=== PATIENT | male | born 1990 | race Caucasian/White ===

== ENCOUNTER 2016-05-25 01:57 | Emergency (ER) | payer OTHER ==
[~2016-05-25] VITALS: Ht 175.3 cm; Wt 116.1 kg
[2016-05-25 02:00] VITALS: Ht 175.3 cm; Wt 116.1 kg
[2016-05-25 02:15] VITALS: TEMP 36.9
[2016-05-25 02:30] LABS: BASO % 0.2 %; BASO ABS # 0.02 K/uL (0-0.2); COMPLETE YES; EOS % 2.1 %; IG% 0.2 %; LYMPH % 29.1 %; MEAN CORPUSCULAR HGB CONC 35.7 g/dl (32-36); MEAN PLATELET VOLUME 8.6 fL (7.4-10.4); MONO % 11.1 %; NEUT % 57.3 %; PLATELET COUNT 325 K/uL (130-400); RED BLOOD COUNT 5.83 M/uL (4.7-6.1); WHITE BLOOD COUNT 12.03 K/uL (4.8-10.8)
[2016-05-25 03:20] LABS: BUN/CREATININE RATIO 14.5 (10-20); CALCIUM 8.5 mg/dl (8.5-10.1); CREATININE 1.2 mg/dl (0.60-1.40); POTASSIUM 3.4 mmol/L (3.5-5.1)
[2016-05-25 03:31] LABS: ALB/GLOB RATIO 1.3 (0.9-2); THYROID STIMULATING HORMONE 2.81 uIu/ml (0.300-4.500)
--- NOTE | 2016-05-25 03:31 | EMERGENCY ROOM VISIT NOTE ---
History Report prepared by Katheryn: Mustapha Rodney Under the Supervision of: Dr. Owen Briseno M.D. First contact with patient: 02:07 Chief Complaint: MENTAL HEALTH EVALUATION Stated Complaint: 302 History of Present Illness The patient is a 26 year old male who presents to the Emergency Room with complaints of a mental health evaluation. Per the police, he was taking steroids and substances around 1800 this evening. He took his parents car and drove to try to see his brother. The brother then notified the parents. The patient booked a hotel room at a [employer], and refused to open the door for the police. Per the patient, he notes he was in his apartment and was taken out. Source of History: patient, police Onset: this evening Position: head Quality: other (mental health evaluation) Timing: other (episode) Review of Systems See HPI for pertinent positives & negatives. A total of 10 systems reviewed and were otherwise negative. Family History No pertinent family history stated. Social History Smoking Status: Never Smoker Current/Historical Medications No Active Prescriptions or Reported Meds Allergies Coded Allergies: Cashew (Unverified Allergy, Unknown, unknown, 05/25/16) Haloperidol (Verified Allergy, Unknown, tongue swelling, 05/25/16) Physical Exam Vital Signs Date Time Temp Pulse Resp B/P Pulse Ox O2 Delivery O2 Flow Rate FiO2 05/25/16 12:24 122 18 135/82 98 Room Air 05/25/16 10:22 93 18 119/74 99 Room Air 05/25/16 02:15 36.9 92 20 150/84 96 Room Air 05/25/16 02:00 158/81 Physical Exam GENERAL: Patient is a healthy-appearing well-nourished HEAD: Normocephalic atraumatic EYES: Ocular movements intact pupils equal and react to light OROPHARYNX mucous membranes are moist no exudates present no erythema or edema present NECK: Supple no nuchal rigidity CHEST: Good equal expansion LUNGS: Clear and equal to auscultation CARDIAC: Normal S1 and S2 ABDOMEN: Soft nontender no guarding BACK: No CVA tenderness EXTREMITIES: No pain upon palpation normal muscle strength in all groups no clubbing cyanosis or edema NEURO: Patient is following commands is answering questions appropriately. Alert and oriented x3 Cranial Nerves 2-12 grossly intact Medical Decision & Procedures Laboratory Results 05/25/16 02:17 Red Blood Count 5.83, Mean Corpuscular Volume 84.0, Mean Corpuscular Hemoglobin 30.0, Mean Corpuscular Hemoglobin Concent 35.7, Mean Platelet Volume 8.6, Neutrophils (%) (Auto) 57.3, Lymphocytes (%) (Auto) 29.1, Monocytes (%) (Auto) 11.1, Eosinophils (%) (Auto) 2.1, Basophils (%) (Auto) 0.2, Neutrophils # (Auto ) 6.89, Lymphocytes # (Auto) 3.50, Monocytes # (Auto) 1.34, Eosinophils # (Auto ) 0.25, Basophils # (Auto) 0.02 05/25/16 02:17 Test 05/25/16 00:00 05/25/16 02:17 Urine Color YELLOW Urine Appearance CLEAR (CLEAR) Urine pH 6.0 (4.5-7.5) Urine Specific [place] 1.021 (1.000-1.030) Urine Protein 1+ (NEG) Urine Glucose (UA) NEG (NEG) Urine Ketones NEG (NEG) Urine Occult Blood NEG (NEG) Urine Nitrite NEG (NEG) Urine Bilirubin NEG (NEG) Urine Urobilinogen NEG (NEG) Urine Leukocyte Esterase NEG (NEG) Urine WBC (Auto) 1-5 /hpf (0-5) Urine RBC (Auto) 5-10 /hpf (0-4) Urine Hyaline Casts (Auto) 1-5 /lpf (0-5) Urine Epithelial Cells (Auto) 10-20 /lpf (0-5) Urine Bacteria (Auto) NEG (NEG) Urine Opiates Screen NEG (NEG) Urine Methadone, Qualitative NEG (NEG) Urine Barbiturates NEG (NEG) Urine Phencyclidine (PCP) Level NEG (NEG) Ur Amphetamine/Methamphetamine NEG (NEG) MDMA (Ecstasy) Screen NEG (NEG) Urine Benzodiazepines Screen NEG (NEG) Urine Cocaine Metabolite NEG (NEG) Urine Marijuana (THC) NEG (NEG) White Blood Count 12.03 K/uL (4.8-10.8) Red Blood Count 5.83 M/uL (4.7-6.1) Hemoglobin 17.5 g/dL (14.0-18.0) Hematocrit 49.0 % (42-52) Mean Corpuscular Volume 84.0 fL (80-100) Mean Corpuscular Hemoglobin 30.0 pg (25-34) Mean Corpuscular Hemoglobin Concent 35.7 g/dl (32-36) Platelet Count 325 K/uL (130-400) Mean Platelet Volume 8.6 fL (7.4-10.4) Neutrophils (%) (Auto) 57.3 % Lymphocytes (%) (Auto) 29.1 % Monocytes (%) (Auto) 11.1 % Eosinophils (%) (Auto) 2.1 % Basophils (%) (Auto) 0.2 % Neutrophils # (Auto) 6.89 K/uL (1.4-6.5) Lymphocytes # (Auto) 3.50 K/uL (1.2-3.4) Monocytes # (Auto) 1.34 K/uL (0.11-0.59) Eosinophils # (Auto) 0.25 K/uL (0-0.5) Basophils # (Auto) 0.02 K/uL (0-0.2) RDW Standard Deviation 39.4 fL (36.4-46.3) RDW Coefficient of Variation 13.0 % (11.5-14.5) Immature Granulocyte % (Auto) 0.2 % Immature Granulocyte # (Auto) 0.03 K/uL (0.00-0.02) Anion Gap 14.0 mmol/L (3-11) Est Creatinine Clear Calc Drug Dose 118.3 ml/min Estimated GFR () 96.8 Estimated GFR (Non- 83.5 BUN/Creatinine Ratio 14.5 (10-20) Calcium Level 8.5 mg/dl (8.5-10.1) Total Bilirubin 0.6 mg/dl (0.2-1) Direct Bilirubin 0.1 mg/dl (0-0.2) Aspartate Amino Transf (AST/SGOT) 19 U/L (15-37) Alanine Aminotransferase (ALT/SGPT) 24 U/L (12-78) Alkaline Phosphatase 79 U/L (45-117) Total Protein 7.6 gm/dl (6.4-8.2) Albumin 4.3 gm/dl (3.4-5.0) Globulin 3.3 gm/dl (2.5-4.0) Albumin/Globulin Ratio 1.3 (0.9-2) Thyroid Stimulating Hormone (TSH) 2.810 uIu/ml (0.300-4.500) Ethyl Alcohol mg/dL < 3.0 mg/dl (0-3) Labs reviewed by ED physician. Medications Administered Medications (Trade) Dose Ordered Sig/Speedy Route Start Time Stop Time Status Last Admin Dose Admin Lorazepam (Ativan Inj) 2 mg NOW STAT IV 05/25/16 12:44 05/25/16 12:48 DC 05/25/16 12:44 2 MG Lorazepam (Ativan Inj) 2 mg NOW STAT IM 05/25/16 12:47 05/25/16 12:48 DC 05/25/16 12:47 2 MG Medical Decision Differential diagnosis: Etiologies such as mood disorder, infection, hypoglycemia, electrolyte abnormalities, cardiac sources, intracerebral event, toxicologic, neurologic, as well as others were entertained. This is a 26-year-old male who presents emergency department after driving from [place] to stay [place]. The patient and properly took his parents car. He is a schizophrenic and has not been taking his medications for months. The parents willingly fill out 302 paperwork on the patient. I do believe that the patient is medically clear and did discuss the case with can help. The patient was signed off to Dr. Jorge Sandoval at change of shift pending psychiatric workup. Impression Primary Impression: Mood disorder Scribe Attestation The scribe's documentation has been prepared under my direction and personally reviewed by me in its entirety. I confirm that the note above accurately reflects all work, treatment, procedures, and medical decision making performed by me. Departure Information Dispostion Still a Patient Prescriptions No Active Prescriptions or Reported Meds Referrals No Doctor, Assigned (PCP) Patient Instructions My [facility] [address]
[2016-05-25 03:33] LABS: URINE APPEARANCE CLEAR (CLEAR); URINE BILIRUBIN NEG (NEG); URINE COLOR YELLOW; URINE NITRITE NEG (NEG); URINE SPECIFIC GRAVITY 1.021 (1.000-1.030); UROBILINOGEN NEG (NEG)
[2016-05-25 03:36] LABS: MANUAL MICROSCOPIC REQUIRED? NO; REVIEW REQ? NO
[2016-05-25 03:56] LABS: BENZODIAZEPINE, URINE NEG (NEG); COCAINE,URINE NEG (NEG); PHENCYCLIDINE, URINE NEG (NEG)
[2016-05-25 12:24] VITALS: BP 135/82; PULSE 122; O2SAT 98
[2016-05-25] MEDS ORDERED: LORAZEPAM 2 MG/ML 1 ML VIAL ONE (12:44)
[2016-05-25] MEDS ORDERED: LORAZEPAM 2 MG/ML 1 ML VIAL IV STA (12:44)
[2016-05-25] MEDS ORDERED: LORAZEPAM 2 MG/ML 1 ML VIAL IM STA (12:47)
--- NOTE | 2016-05-25 14:34 | EMERGENCY ROOM VISIT NOTE ---
ED Visit Note First contact with patient: 10:56 26 yr old male initially evaluated and medically cleared by Dr Briseno. He was brought in by Police overnight on 302 warrant for acute worsening of his paranoid schizophrenia. Patient interviewed this morning and he is completely denying any need for inpatient though he is clearly not thinking normally currently. He can not explain his actions and says he wishes to go home. He is unable to competently make his decisions at this time. Given what parents have told me about him, along with fact he has stopped going to psychiatrist, stopped his meds, has multiple 302 admissions previously I feel he will need 302 admission again. Patient somewhat non-cooperative but non-violent throughout ED stay. [place] transfer by [place] patient attempted to flew. He was handcuffed and brought back to ED. Given IM Ativan with calming down. Placed in leather restraints given concern for flight risk. He is now refusing to talk nor interact in any way currently. He has no evidence of trauma to his body. He is actively trying to close his eyes to my exam and turned his head away from me. Parents make clear he does this periodically and will refuse to talk, move or eat for several days. This was a difficult situation as patient drove himself to [facility] from [facility] thus he was brought under 302 warrant to this facility. He is unwilling to sign 201 (not mentally capable of doing so). He would likely benefit from being closer to home, but given the fact that rules dictate we must send him to closest facility, [facility]. Furthermore, the fact he attempted to flee makes prolonged transport even more risky. I sent patient to [facility] in restraints after [facility] help made clear to me that [facility] is aware of this and expecting him in restraints.
== END 2016-05-25 13:38 ==
LOC: C.EDB 01:59 → C.EDA 13:38
DX: F20.0 Paranoid schizophrenia (principal); Z91.14 Patient's other noncompliance with medication regimen

== ENCOUNTER 2016-07-20 16:41 | Emergency (ER) | payer OTHER ==
[~2016-07-20] VITALS: Ht 172.7 cm; Wt 102.0 kg
[2016-07-20 17:03] VITALS: TEMP 36.9; Ht 172.7 cm; Wt 102.0 kg
[2016-07-20] MEDS ORDERED: ARIP30TA3 PO (17:26)
[2016-07-20] MEDS ORDERED: ACET-1311 PO (17:26)
[2016-07-20] MEDS ORDERED: ATV1HP PO (17:26)
[2016-07-20] MEDS ORDERED: [UNRECOGNIZED DRUG - CODE] IM (17:26)
[2016-07-20] MEDS ORDERED: [UNRECOGNIZED DRUG - CODE] PO (17:26)
[2016-07-20 17:30] LABS: ISTAT HEMOGLOBIN 16.3 g/dl (14.0-18.0); ISTAT IONIZED CALCIUM 1.16 mmol/l (1.12-1.32)
--- NOTE | 2016-07-20 17:59 | EMERGENCY ROOM VISIT NOTE ---
History Report prepared by Katheryn: Valerio Diego Under the Supervision of: Dr. Owen Mcbride D.O. First contact with patient: 16:45 Chief Complaint: ABNORMAL LABS Stated Complaint: HI POTASSIUM History of Present Illness The patient is a 26 year old male who presents to the Emergency Room from the [facility] with complaints of sudden high potassium beginning one day prior to arrival. He states his blood was drawn yesterday at the [facility], and he received a call today that his potassium was elevated. He states he was told to be evaluated for his high potassium. The patient does not have any other medical concerns at this time. Source of History: patient Onset: one day [employer]OB WORK[employer] Position: other (global) Quality: other (high potassium) Timing: other (sudden) Review of Systems See HPI for pertinent positives & negatives. A total of 10 systems reviewed and were otherwise negative. Past Medical & Surgical Medical Problems: (1) No pertinent past medical history Family History Patient reports no known family medical history. Social History Smoking Status: Never Smoker Marital Status: single Housing Status: other ([facility]) Occupation Status: unemployed Current/Historical Medications Scheduled Aripiprazole (Abilify), 30 MG PO DAILY Scheduled PRN Acetaminophen (Tylenol), 650 MG PO Q4 PRN for Pain Benztropine Mesylate (Benztropine Mesylate), 1 ML IM DAILY PRN for PRN Chlorpromazine HCl (Chlorpromazine HCl), 200 MG PO DAILY PRN for PRN Lorazepam (Lorazepam), 2 TABS PO Q4H PRN for Anxiety Allergies Coded Allergies: Cashew (Unverified Allergy, Unknown, unknown, 07/20/16) Haloperidol (Verified Allergy, Unknown, tongue swelling, 07/20/16) Physical Exam Vital Signs Date Time Temp Pulse Resp B/P Pulse Ox O2 Delivery O2 Flow Rate FiO2 07/20/16 17:03 36.9 115 18 127/88 97 Room Air Physical Exam CONSTITUTIONAL/VITAL SIGNS: Reviewed / noted above. GENERAL: Non-toxic in appearance. INTEGUMENTARY: Warm, dry, and [place]. HEAD: Normocephalic. EYES: without scleral icterus or trauma. ENT/OROPHARYNX: clear and moist. LYMPHADENOPATHY/NECK: Is supple without lymphadenopathy or meningismus. RESPIRATORY: Lungs clear and equal. CARDIOVASCULAR: Regular rate and rhythm. GI/ABDOMEN: Soft and nontender. No organomegaly or pulsatile mass. No rebound or guarding. Normal bowel sounds. EXTREMITIES: Warm and well perfused. BACK: No CVA tenderness. NEUROLOGICAL: Intact without focal deficits. PSYCHIATRIC: normal affect. MUSCULOSKELETAL: Normally developed with good muscle tone. Medical Decision & Procedures Laboratory Results Test 07/20/16 17:17 Bedside Hemoglobin 16.3 g/dl (14.0-18.0) Bedside Hematocrit 48 % (42-52) Bedside Sodium 141 mEq/L (135-144) Bedside Potassium 4.4 mEq/L (3.3-5.0) Bedside Chloride 105 mEq/L (101-112) Bedside Total CO2 24 mEq/l (24-31) Anion Gap 18.0 mmol/L (16-25) Bedside Blood Urea Nitrogen 16 mg/dl (7-18) Bedside Creatinine 1.0 mg/dl (0.6-1.3) Bedside Glucose (other) 95 mg/dl (70-99) Bedside Ionized Calcium (Ursula) 1.16 mmol/l (1.12-1.32) Laboratory results as stated above per my review. ED Course 1648: Previous medical records were reviewed. The patient was evaluated in room A5. A complete history and physical examination was performed. 1800: On reevaluation, the patient is doing well. I discussed the results and findings with the patient. He verbalized agreement of the treatment plan. The patient was discharged home. Medical Decision This is a 26-year-old male who presents to the ED with a chief complaint of elevated potassium. The patient had outpatient blood work yesterday that revealed a potassium of 8. He was sent here for evaluation of this. The patient's blood work was repeated today. His potassium as well as his other laboratory studies are normal. He is asymptomatic. He was discharged back to the [facility]. Impression Primary Impression: Electrolyte disturbance Scribe Attestation The scribe's documentation has been prepared under my direction and personally reviewed by me in its entirety. I confirm that the note above accurately reflects all work, treatment, procedures, and medical decision making performed by me. Departure Information Dispostion Home / Self-Care Referrals No Doctor, Assigned (PCP) Patient Instructions My [facility] Additional Instructions Your laboratory studies and potassium are normal.
[2016-07-20 18:46] VITALS: BP 112/76; PULSE 77; O2SAT 98
== END 2016-07-20 18:40 | disposition home or self-care (01) ==
LOC: EDBD 16:41 → C.EDA 16:42
DX: E87.8 Other disorders of electrolyte and fluid balance, not elsewhere classified (principal); Z79.899 Other long term (current) drug therapy

== ENCOUNTER 2016-08-01 17:10 | Inpatient (IN) | payer OTHER ==
[~2016-08-01] VITALS: Ht 172.7 cm; Wt 98.4 kg
[~2016-08-01 17:10] MED LIST: ACET-1311 PO; ARIP30TA3 PO; ATV1HP PO; [UNRECOGNIZED DRUG - CODE] IM; [UNRECOGNIZED DRUG - CODE] PO
[2016-08-01] MEDS ORDERED: SODIUM CHLORIDE 0.9% 1000ML 2,000 ML IV STA (17:38)
[2016-08-01 17:50] LABS: BASO % 0.1 %; BASO ABS # 0.01 K/uL (0-0.2); COMPLETE YES; EOS % 3.6 %; HEMATOCRIT 42.1 % (42-52); IG% 0.5 %; LYMPH % 12.4 %; LYMPH ABS # 1.22 K/uL (1.2-3.4); MEAN CELL VOLUME 80.7 fL (80-100); MEAN CORPUSCULAR HEMOGLOBIN 28.7 pg (25-34); MEAN CORPUSCULAR HGB CONC 35.6 g/dl (32-36); MEAN PLATELET VOLUME 9.1 fL (7.4-10.4); MONO % 12.1 %; NEUT % 71.3 %; PLATELET COUNT 186 K/uL (130-400); RED BLOOD COUNT 5.22 M/uL (4.7-6.1); WHITE BLOOD COUNT 9.82 K/uL (4.8-10.8)
[2016-08-01] MEDS ORDERED: CLZ100 PO (17:54)
[2016-08-01 17:57] LABS: INR 1.1 (0.9-1.1); PROTHROMBIN TIME (PATIENT) 12.3 SECONDS (9.0-12.0)
[2016-08-01 18:01] LABS: ISTAT CREATININE 0.9 mg/dl (0.6-1.3); ISTAT HEMOGLOBIN 15.6 g/dl (14.0-18.0); ISTAT IONIZED CALCIUM 0.99 mmol/l (1.12-1.32)
[2016-08-01] MEDS ORDERED: LORAZEPAM 2 MG/ML 1 ML VIAL IV STA (18:08)
[2016-08-01 18:09] LABS: CREATININE 1.1 mg/dl (0.60-1.40); MAGNESIUM 2.4 mg/dl (1.8-2.4); POTASSIUM 3.6 mmol/L (3.5-5.1)
--- NOTE | 2016-08-01 18:11 | DIAGNOSTIC IMAGING REPORT ---
CHEST ONE VIEW PORTABLE CLINICAL HISTORY: Fever. Tachycardia. COMPARISON STUDY: No previous studies for comparison. FINDINGS: The patient is rotated. There is no pneumothorax or pleural effusion. There is no lobar consolidation. There is mild enlargement of the cardiac silhouette. There may be pulmonary vascular congestion. IMPRESSION: 1. Mild enlargement of the cardiac silhouette with pulmonary vascular congestion. 2. No lobar consolidation. Electronically signed by: Ryan Tomlinson M.D. 08/01/2016 6:09 PM Dictated Date/Time: 08/01/2016 6:09 PM
[2016-08-01 18:30] LABS: CKMB/CK RATIO 1.1 (0-3.0)
[2016-08-01] MEDS ORDERED: METOPROLOL TARTRATE 25 MG TAB PO ONE (19:27)
[2016-08-01] MEDS ORDERED: METOPROLOL TARTRATE 50 MG TAB ONE (19:45)
[2016-08-01 19:50] LABS: THYROID STIMULATING HORMONE 2.06 uIu/ml (0.300-4.500)
--- NOTE | 2016-08-01 20:17 | ECHOCARDIOGRAM REPORT ---
*NOTICE TO RECEIVING [employer] This information is strictly Confidential and protected under [place] law. [place] law prohibits you from making any further disclosure of this information unless further disclosure is expressly permitted by the written consent of the person to whom it pertains or is authorized by law. A general authorization for the release of medical or other information is not sufficient for this purpose. Hospital accepts no responsibility if the information is made available to any other person, INCLUDING THE PATIENT. Interpretation Summary * Name: TOYA MATTHEWS Study Date: 08/01/2016 06:56 PM BP: 107/73 mmHg * Patient Location: [facility] HR: 153 * : 1990 (M/d/yyyy) Gender: Male Height: 68 in * Age: 26 yrs Ethnicity: CA Weight: 229 lb * Ordering Physician: Kendall Lomas * Referring Physician: Bee, [facility] * Performed By: Yue Wyatt RCS * * Reason For Study: CARDIOMYOPATY / TACHYCARDIA * BSA: 2.2 m2 * -- Conclusions -- * Study was performed on at the bedside in the ED. * Sinus tachycardia at 155 bpm was present at the time of the echocardiogram. * The left ventricle is normal in size. * There is normal left ventricular wall thickness. * There is severe global hypokinesis of the left ventricle. * The LV Ejection Fraction = 25-30%. * The right ventricle is normal size. * The right ventricular systolic function is moderately reduced. * There is mild mitral regurgitation. * A small circumferential pericardial effusion is present. * There are no echocardiographic indications of cardiac tamponade. Procedure Details * A complete two-dimensional transthoracic echocardiogram was performed (2D, M-mode, Doppler and color flow Doppler). Left Ventricle * The left ventricle is normal in size. * There is normal left ventricular wall thickness. * Left ventricular systolic function is severely reduced. * Ejection Fraction = 25-30%. * There is severe global hypokinesis of the left ventricle. Right Ventricle * The right ventricle is normal size. * The right ventricular systolic function is moderately reduced. Atria * The left atrial size is normal. * Right atrial size is normal. * There is no evidence of atrial septal defect, but resolution does not allow assessment for a patent foramen ovale. Mitral Valve * The mitral valve is normal. * There is no mitral valve stenosis. * There is mild mitral regurgitation. Tricuspid Valve * The tricuspid valve is normal. * There is no tricuspid stenosis. * Significant tricuspid regurgitation is absent. * Doppler findings do not suggest pulmonary hypertension. Aortic Valve * The aortic valve is trileaflet. * Aortic stenosis is absent. * There is no significant aortic regurgitation. Pulmonic Valve * The pulmonary valve is not well seen, but the Doppler examination is normal without significant regurgitation or stenosis. Great Vessels * The aortic root and proximal ascending aorta are normal sized. Pericardium/Pleural * A small circumferential pericardial effusion is present. * There are no echocardiographic indications of cardiac tamponade. Great Vessels * Normal inferior vena cava diameter and respiratory variation suggests normal central venous pressure. * Normal inferior vena cava size and collapsability with sniff indicates a normal right atrial pressure of 3 mmHg Left Ventricular Diastolic Function * The LV diastolic function is abnormal based on the abnormal systolic function. The diastolic function is not graded due to fusion of the mitral valve inflow pattern due to tachycardia. MMode 2D Measurements and Calculations IVSd 1.4 cm IVSs 1.7 cm LVIDd 5.3 cm LVIDs 4.8 cm LVPWd 1.2 cm LVPWs 1.3 cm IVS/LVPW 1.2 FS 8.6 % EDV(Teich) 135.6 ml ESV(Teich) 110.1 ml EF(Teich) 18.8 % EDV(cubed) 149.2 ml ESV(cubed) 114.0 ml EF(cubed) 23.6 % % IVS thick 21.6 % % LVPW thick 15.9 % LV mass(C)d 275.2 grams LV mass(C)dI 127.1 grams/m\S\2 LV mass(C)s 308.1 grams LV mass(C)sI 142.3 grams/m\S\2 SV(Teich) 25.5 ml SI(Teich) 11.8 ml/m\S\2 SV(cubed) 35.2 ml SI(cubed) 16.3 ml/m\S\2 Ao root diam 4.5 cm Ao root area 15.6 cm\S\2 ACS 1.8 cm LA dimension 3.7 cm LA/Ao 0.82 LVOT diam 2.4 cm LVOT area 4.4 cm\S\2 LVAd ap4 39.1 cm\S\2 LVLd ap4 8.5 cm EDV(MOD-sp4) 148.6 ml EDV(sp4-el) 153.1 ml LVAs ap4 32.0 cm\S\2 LVLs ap4 7.7 cm ESV(MOD-sp4) 109.8 ml ESV(sp4-el) 112.8 ml EF(MOD-sp4) 26.1 % EF(sp4-el) 26.3 % LVAd ap2 35.5 cm\S\2 LVLd ap2 8.1 cm EDV(MOD-sp2) 126.4 ml EDV(sp2-el) 132.3 ml LVAs ap2 27.9 cm\S\2 LVLs ap2 7.5 cm ESV(MOD-sp2) 86.7 ml ESV(sp2-el) 88.8 ml EF(MOD-sp2) 31.4 % EF(sp2-el) 32.9 % LVLd %diff -3.73 % EDV(MOD-bp) 145.4 ml LVLs %diff -5.81 % ESV(MOD-bp) 94.3 ml EF(MOD-bp) 35.1 % SV(MOD-sp4) 38.8 ml SI(MOD-sp4) 17.9 ml/m\S\2 SV(MOD-sp2) 39.7 ml SI(MOD-sp2) 18.3 ml/m\S\2 SV(MOD-bp) 51.1 ml SI(MOD-bp) 23.6 ml/m\S\2 SV(sp4-el) 40.3 ml SI(sp4-el) 18.6 ml/m\S\2 SV(sp2-el) 43.5 ml SI(sp2-el) 20.1 ml/m\S\2 Doppler Measurements and Calculations Ao V2 max 96.1 cm/sec Ao max PG 3.7 mmHg Ao max PG (full) 1.3 mmHg JUANITO(V,A) 3.5 cm\S\2 JUANITO(V,D) 3.5 cm\S\2 LV V1 max PG 2.4 mmHg LV V1 max 77.4 cm/sec MR max tae 388.0 cm/sec MR max PG 60.2 mmHg PA V2 max 81.2 cm/sec PA max PG 2.6 mmHg TR max tae 257.8 cm/sec
[2016-08-01] MEDS ORDERED: CALCIUM GLUCONATE 10% 1,000 MG in SODIUM CHLORIDE 0.9% 50ML 50 ML IV ONE (20:30)
[2016-08-01] MEDS ORDERED: ACETAMINOPHEN 325 MG TAB PO PRN (20:30)
--- NOTE | 2016-08-01 20:31 | Cardiology Consultation ---
Cardiology Consultation Date of Consultation: Aug 01, 2016 History of Present Illness Polo Magaña is a 26-year-old male seen in cardiology consultation per the request of and Dr Lee for the evaluation of tachycardia and cardiomyopathy. Overall little is known about the patient's past history. It appears that in May [address] had driven to [facility] from where he lives in the [facility] and subsequently admitted to the [facility] on a 302 warrant. Per available records the patient has been diagnosed with schizophrenia, although I'm not certain how long he has carried this diagnosis. When I asked the patient about this he states that he is admitted to the [facility] due to "psychosis". The patient has been treated with antipsychotic therapy has been followed due to possible cardiac side effects related to his medications. Apparently as an outpatient he was noted to be tachycardic and he was therefore referred to the emergency department. EKG performed on 08/01/2016 at 1729 hrs. revealed appears to be a sinus tachycardia 158 beats per and a left anterior fascicular block. No prior EKG tracings are available for comparison. The patient reported no distress. During my bedside interview with him in the emergency department room C4, he denies any chest discomfort or shortness of breath. He does note that he has a cough that he believes he has had for 2 weeks but he does not remember having any significant respiratory tract infection. He hasn't attended with him from the [facility] but no additional history is available at the present time. It does appear that his medications have recently been changed because he was in the emergency department on 07/20/16 due to concerns of hyperkalemia. The potassium level was noted to be elevated outpatient AND therefore he was referred for repeat blood work and it was found that his potassium was normal at that time. No EKG was performed during that emergency room assessment. Two heart rate episodes were entered into the vital signs record and they were 115 bpm 77 bpm. When he was seen on 07/10/16 in the emergency department his medications included Abilify, benztropine mesylate, chlorpromazine, and lorazepam. His medications today include Abilify and clozapine. Laboratory studies performed thus far include sodium of 131, potassium 3.7, calcium of 8 mg/dL, lactic acid level of 1.64 mmol per liter, a [id number] troponin of 3.09, and repeat troponin of 3.55 ng/mil with CPK of 457 and MB fraction of 5. A bedside chest thoracic echocardiogram was performed revealing severe global left ventricular hypokinesis with a qualitative ejection fraction of 25-30%. The left ventricular chamber size is normal. Right ventricular chamber size is normal with moderate global hypokinesis. History PAST MEDICAL HISTORY: Schizophrenia PAST SURGICAL HISTORY: Unobtainable due to the patient's mental status FAMILY HISTORY: Unobtainable SOCIAL HISTORY: Unobtainable exception of that above Review Of Systems Negative with the exception of that noted above, the patient only describes a cough. His history however is not reliable. He is not able to provide details of why he is here. Allergies Coded Allergies: Cashew (Unverified Allergy, Unknown, unknown, 07/20/16) Haloperidol (Verified Allergy, Unknown, tongue swelling, 07/20/16) Medications Reported Home Medications Medications Dose Route/Sig Max Daily Dose Days Date Category Clozapine 100 Mg Tab 275 Mg PO QPM 08/01/16 Reported Abilify (Aripiprazole) 30 Mg Tab 30 Mg PO DAILY 07/20/16 Reported Physical Exam Vital Signs (Last 8hrs): Last 8 Hrs Date Time Temp Pulse Resp B/P Pulse Ox O2 Delivery O2 Flow Rate FiO2 08/01/16 19:52 161 28 99/58 97 Room Air 08/01/16 18:17 153 18 107/73 08/01/16 17:29 97 Room Air 08/01/16 17:29 97 Room Air 08/01/16 17:29 37.0 160 20 164/131 97 Room Air 08/01/16 17:24 256 General Appearance: Alert NAD. Head: Normocephalic Atraumatic. Eyes: PERRLA, EOMI, conjunctiva and sclera clear Neck: Supple. No carotid bruits noted. No JVD. No HJD. Respiratory: Breath sounds clear to auscultation bilaterally. No w/r/r. Cardiovascular: Reg rate, tachycardic, no murmurs Abdomen: Normal bowel sounds, soft nontender. no abdominal bruits. Extremities: No edema, no clubbing or cyanosis. distal pulses 2/4 bilaterally. Neuro: No focal deficits. Psychiatric: Demonstrates somewhat flight of ideas, poor historian consistent with his history of recent admission for psychosis Data Last Resulted 08/01/16 17:38 Red Blood Count 5.22, Mean Corpuscular Volume 80.7, Mean Corpuscular Hemoglobin 28.7, Mean Corpuscular Hemoglobin Concent 35.6, Mean Platelet Volume 9.1, Neutrophils (%) (Auto) 71.3, Lymphocytes (%) (Auto) 12.4, Monocytes (%) (Auto) 12.1, Eosinophils (%) (Auto) 3.6, Basophils (%) (Auto) 0.1, Neutrophils # (Auto ) 7.00, Lymphocytes # (Auto) 1.22, Monocytes # (Auto) 1.19, Eosinophils # (Auto ) 0.35, Basophils # (Auto) 0.01 Last Resulted 08/01/16 17:38 Past 24 Hours Test 08/01/16 17:38 Range/Units Creatine Kinase MB 5.0 H 0.5-3.6 ng/ml Creatine Kinase MB Ratio 1.1 0-3.0 Prothromb Time International Ratio 1.1 0.9-1.1 Prothrombin Time 12.3 H 9.0-12.0 SECONDS Total Creatine Kinase 457 H 39-308 U/L Troponin I 3.550 *H 0-0.045 ng/ml Imaging: As per history of present illness EKG: As per history of present illness Telemetry reviewed: Sinus tachycardia Assessment & Plan Impression: 26-year-old male 1. Sinus tachycardia 2. Newly recognized cardiomyopathy, severe LV systolic dysfunction, small circumferential pericardial effusion. 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 Clozapine has noted side effects of myocarditis as well as pericarditis, but in the literature dilated cardiomyopathy has also been reported. The patient has received 2 L of IV fluid. He is not volume overloaded on exam he notes no symptoms despite his elevated troponin. The troponin elevation is likely due to myocardial strain in the setting of tachycardia and cardiomyopathy I do not think this represents an acute coronary syndrome. At present, I think he is relatively compensated from a volume standpoint and I requested that his IV fluids be discontinued. I'm going to place him on metoprolol tartrate 25 mg by mouth every 6 hours. History admitted to the hospitalist service, telemetry unit is appropriate for him. Will need psychiatry to see him as his Abilify and clozapine will need to be held for the time being. I left a voicemail message for his brother, Arnaud notifying him that the patient was in the hospital. I will try to contact him again.
[2016-08-01 20:55] VITALS: BP 92/57; PULSE 155; TEMP 36.8; O2SAT 94; Ht 172.7 cm; Wt 98.4 kg
[2016-08-01 21:00] VITALS: BP 92/57; PULSE 157; TEMP 36.8; O2SAT 92
[2016-08-01] MEDS ORDERED: LEVALBUTEROL/IPRATROPIUM NEB INH PRN (21:45)
[2016-08-01] MEDS ORDERED: LEVALBUTEROL/IPRATROPIUM NEB INH STA (21:45)
[2016-08-01 21:47] LABS: ISTAT ALLEN TEST Pass; ISTAT ARTERIAL BLOOD GAS HCO3 19 meq/L (19-24); ISTAT ARTERIAL BLOOD GAS PCO2 27 mmHg (35-46); ISTAT ARTERIAL BLOOD GAS PO2 52 mmHg (80-95); ISTAT ARTERIAL BLOOD GAS pH 7.44 (7.35-7.45); ISTAT CARBON DIOXIDE 19 mEq/l (24-31); ISTAT DELIVERY SYSTEM Room Air; ISTAT SITE R Radial
[2016-08-01] MEDS ORDERED: POTASSIUM CHLORIDE 10 MEQ TABCR PO STA (21:49)
[2016-08-01] MEDS ORDERED: LEVALBUTEROL 1.25MG/0.5ML NEB INH STA (21:51)
[2016-08-01] MEDS ORDERED: IPRATROPIUM BROMIDE NEB SOLN 0.02% 2.5 ML VIAL INH STA (21:51)
[2016-08-01 22:00] VITALS: BP 120/93; PULSE 159; O2SAT 93
[2016-08-01] MEDS ORDERED: LORAZEPAM 2 MG/ML 1 ML VIAL IV PRN (22:00)
[2016-08-01] MEDS ORDERED: LORAZEPAM 2 MG/ML 1 ML VIAL IV ONE (22:00)
[2016-08-01] MEDS ORDERED: IPRATROPIUM BROMIDE NEB SOLN 0.02% 2.5 ML VIAL INH PRN (22:00)
[2016-08-01] MEDS ORDERED: LEVALBUTEROL 1.25MG/0.5ML NEB INH PRN (22:00)
[2016-08-01 23:00] VITALS: BP 92/62; PULSE 148; O2SAT 96
--- NOTE | 2016-08-01 23:13 | History and Physical ---
History & Physical Date & Time of Service: Aug 01, 2016 at 22:57 Chief Complaint: Tachycardia [facility] History of Present Illness Source: patient, family, other ([facility], director of midwifery/staff midwife) 26 year old male with history of Paranoid Schizophrenia, currently residing at [facility], presenting with tachycardia. Patient was admitted to [facility] under 302 last May 2016 for Paranoid Schizophrenia. He is currently on Abilify and Clozapine. Patient was noted to be tachycardic in the 150s today and hence was sent to the ER for evaluation. I called the RN at [facility] and she states that since the early part of this month, patient's HR was in the 110-120's. She adds that around 1-2 weeks ago, they noticed that the patient was coughing but no fever/chills. At the ER, patient's HR was noted to be 150s, sinus tachycardia. Troponin elevated at 3.09. Echo done at the bedside showed an EF of 25-30%. On my exam, patient was sitting up in bed, comfortable, pleasant and cooperative. RN Yue at bedside. Patient denies having active chest pain, dyspnea, cough, palpitations, headache , dizziness, nausea, abdominal pain,changes with urination or bowel movement. He states that his mood is ok, although he feels "down" because he was supposed to go home tomorrow but that has to be delayed because of his heart condition. Patient reassured. Denies worsening depression. No other symptoms Past Medical/Surgical History Medical Problems: (1) Paranoid schizophrenia Status: Chronic Family History Patient reports no known family medical history. Social History Alcohol Use: none Drug Use: none, other (history of using metabolic steroids) Marital Status: single Housing status: other ([facility]) Occupational Status: unemployed Allergies Coded Allergies: Cashew (Unverified Allergy, Unknown, unknown, 07/20/16) Haloperidol (Verified Allergy, Unknown, tongue swelling, 07/20/16) Home Medications Scheduled Aripiprazole (Abilify), 1 TAB PO DAILY Clozapine (Clozapine), 275 MG PO QPM Metoprolol Tartrate (Lopressor), 25 MG PO QID Review of Systems Constitutional- patient's mother reports she was told by RN at the [facility] that patient had temp of 100.1; no weight loss Eyes- no acute visual changes ENT- no sinus drainage; no pharyngitis Pulmonary- (+) cough as noted above Cardiac- no chest pain, no palpitations, no orthopnea, no dependent edema GI- no nausea, no vomiting, no diarrhea, no melena, no hematochezia - no dysuria, no hematuria Musculoskeletal- no arthralgias, no myalgias Derm- no rashes, no new skin lesions, no changing skin lesions Hematologic- no unusual bruising, no unusual bleeding Lymphatics- no adenopathy Endocrine- no polyuria or polydipsia; no heat or cold intolerance Neuro- no headaches, no focal neurologic symptoms Psych- (+) as noted above Physical Exam Vital Signs Date Time Temp Pulse Resp B/P Pulse Ox O2 Delivery O2 Flow Rate FiO2 08/01/16 20:55 36.8 155 28 92/57 94 Room Air 08/01/16 20:40 37.0 156 28 96/53 95 08/01/16 19:52 161 28 99/58 97 Room Air 08/01/16 18:17 153 18 107/73 08/01/16 17:29 97 Room Air 08/01/16 17:29 97 Room Air 08/01/16 17:29 37.0 160 20 164/131 97 Room Air 08/01/16 17:24 256 General Appearance: WD/WN, no apparent distress Head: normocephalic, atraumatic Eyes: normal inspection, PERRL, sclerae normal ENT: normal ENT inspection, hearing grossly normal, pharynx normal Neck: supple, no adenopathy, thyroid normal, no JVD, trachea midline Respiratory/Chest: chest non-tender, lungs clear, normal breath sounds, no respiratory distress, no accessory muscle use Cardiovascular: no edema, no JVD, no murmur, + tachycardia Abdomen/GI: normal bowel sounds, non tender, soft Back: normal inspection, no CVA tenderness Extremities/Musculoskelatal: normal inspection, no calf tenderness, no pedal edema Neurologic/Psych: resident surgeon II-XII nml as tested, no motor/sensory deficits, alert, normal reflexes, oriented x 3, + pertinent finding (calm, cooperative, slightly anxious) Skin: normal color, warm/dry, no rash Lymphatic: no adenopathy Diagnostics Laboratory Results Results Past 24 Hours Test 08/01/16 17:27 08/01/16 17:38 08/01/16 17:46 08/01/16 17:47 Range/Units White Blood Count 9.82 4.8-10.8 K/uL Red Blood Count 5.22 4.7-6.1 M/uL Hemoglobin 15.0 14.0-18.0 g/dL Hematocrit 42.1 42-52 % Mean Corpuscular Volume 80.7 80-100 fL Mean Corpuscular Hemoglobin 28.7 25-34 pg Mean Corpuscular Hemoglobin Concent 35.6 32-36 g/dl Platelet Count 186 130-400 K/uL Mean Platelet Volume 9.1 7.4-10.4 fL Neutrophils (%) (Auto) 71.3 % Lymphocytes (%) (Auto) 12.4 % Monocytes (%) (Auto) 12.1 % Eosinophils (%) (Auto) 3.6 % Basophils (%) (Auto) 0.1 % Neutrophils # (Auto) 7.00 1.4-6.5 K/uL Lymphocytes # (Auto) 1.22 1.2-3.4 K/uL Monocytes # (Auto) 1.19 0.11-0.59 K/uL Eosinophils # (Auto) 0.35 0-0.5 K/uL Basophils # (Auto) 0.01 0-0.2 K/uL RDW Standard Deviation 39.9 36.4-46.3 fL RDW Coefficient of Variation 13.5 11.5-14.5 % Immature Granulocyte % (Auto) 0.5 % Immature Granulocyte # (Auto) 0.05 0.00-0.02 K/uL Prothrombin Time 12.3 9.0-12.0 SECONDS Prothromb Time International Ratio 1.1 0.9-1.1 Sodium Level 130 136-145 mmol/L Potassium Level 3.6 3.5-5.1 mmol/L Chloride Level 97 98-107 mmol/L Carbon Dioxide Level 23 21-32 mmol/L Anion Gap 10.0 21.0 16-25 mmol/L Blood Urea Nitrogen 18 7-18 mg/dl Creatinine 1.10 0.60-1.40 mg/dl Est Creatinine Clear Calc Drug Dose 120.2 ml/min Estimated GFR () 107.6 Estimated GFR (Non- 92.8 BUN/Creatinine Ratio 16.0 10-20 Random Glucose 117 70-99 mg/dl Osmolality 270 280-300 mOsm/kg Calcium Level 8.0 8.5-10.1 mg/dl Magnesium Level 2.4 1.8-2.4 mg/dl Total Bilirubin 0.5 0.2-1 mg/dl Direct Bilirubin 0.1 0-0.2 mg/dl Aspartate Amino Transf (AST/SGOT) 34 15-37 U/L Alanine Aminotransferase (ALT/SGPT) 25 12-78 U/L Alkaline Phosphatase 57 45-117 U/L Total Creatine Kinase 457 39-308 U/L Creatine Kinase MB 5.0 0.5-3.6 ng/ml Creatine Kinase MB Ratio 1.1 0-3.0 Troponin I 3.550 0-0.045 ng/ml Total Protein 7.0 6.4-8.2 gm/dl Albumin 3.2 3.4-5.0 gm/dl Procalcitonin 0.48 0-0.5 ng/mL Thyroid Stimulating Hormone (TSH) 2.060 0.300-4.500 uIu/ml Free Thyroxine 1.30 0.80-1.60 ng/dl Bedside Lactic Acid Venous 1.64 0.90-1.70 mmol/L Bedside Troponin I 3.090 0-0.045 ng/ml Bedside Hemoglobin 15.6 14.0-18.0 g/dl Bedside Hematocrit 46 42-52 % Bedside Sodium 131 135-144 mEq/L Bedside Potassium 3.7 3.3-5.0 mEq/L Bedside Chloride 95 101-112 mEq/L Bedside Total CO2 20 24-31 mEq/l Bedside Blood Urea Nitrogen 17 7-18 mg/dl Bedside Creatinine 0.9 0.6-1.3 mg/dl Bedside Glucose (other) 118 70-99 mg/dl Bedside Ionized Calcium (Ursula) 0.99 1.12-1.32 mmol/l Test 08/01/16 21:00 08/01/16 21:22 08/01/16 21:23 08/01/16 21:34 Range/Units Influenza Type A Antigen Neg for Influ A NEG Influenza Type B Antigen Neg for Influ B NEG Lactic Acid Level 1.6 0.4-2.0 mmol/L Bedside Glucose 119 70-99 mg/dl Blood Gas Sample Site R Radial Bedside Blood Gas pH (LAB) 7.44 7.35-7.45 Bedside Blood Gas pCO2 (LAB) 27 35-46 mmHg Bedside Blood Gas pO2 (LAB) 52 80-95 mmHg Bedside Blood Gas HCO3 (LAB) 19 19-24 meq/L Bedside Blood Gas Total CO2 19 24-31 mEq/l Bedside Blood Gas Base Excess (LAB) -6.0 -9-1.8 meq/L Bedside Blood Gas O2 Saturation 89.0 90-95 % Zane Test Pass Oxygen Delivery Device Room Air Microbiology Results 08/01/16 Blood Culture, Received Pending 08/01/16 Blood Culture, Received Pending 08/01/16 MRSA DNA Surveillance Screen, Received Pending Diagnostic Radiology CXR: CHEST ONE VIEW PORTABLE per radiology report CLINICAL HISTORY: Fever. Tachycardia. COMPARISON STUDY: No previous studies for comparison. FINDINGS: The patient is rotated. There is no pneumothorax or pleural effusion. There is no lobar consolidation. There is mild enlargement of the cardiac silhouette. There may be pulmonary vascular congestion. IMPRESSION: 1. Mild enlargement of the cardiac silhouette with pulmonary vascular congestion. 2. No lobar consolidation. EKG sinus tachycardia, HR 158 Impression Assessment and Plan 26 year old male with history of Paranoid Schizophrenia, currently residing at [facility], presenting with tachycardia. CARDIOMYOPATHY - 2d echo per Cardiology: * Sinus tachycardia at 155 bpm was present at the time of the echocardiogram. * The left ventricle is normal in size. * There is normal left ventricular wall thickness. * There is severe global hypokinesis of the left ventricle. * The LV Ejection Fraction = 25-30%. * The right ventricle is normal size. * The right ventricular systolic function is moderately reduced. * There is mild mitral regurgitation. * A small circumferential pericardial effusion is present. * There are no echocardiographic indications of cardiac tamponade. --- unclear etiology possible adverse effect of Clozapine, Abilify discussed with Psych Liaison, may hold above medications for now Metoprolol PO started --- no signs of overt volume overload on exam -- appreciate Cardiology recommendations SINUS TACHYCARDIA ELEVATED TROPONIN --- likely from Cardiomyopathy, Psych Medications management as noted above --- CT chest ordered to r/o PE monitor creatinine HYPONATREMIA --- seems euvolemic at this time check Plasma Osm, Urine Na PRP q4h MILD HYPOCALCEMIA --- Ca gluconate x 1 ordered -- check Ca in AM check PTH, Vit D EPISODE OF MILD FEVER -- per patient's mother, RN at [facility] relayed to her that patient had a temp of 100.1 today no fever at this time, no leukocytosis CXR no signs of pneumonia -- no clear signs of infection at this time blood cultures and UA pending monitor PARANOID SCHIZOPHRENIA discussed with Psych Liaison, may hold Clozapine, Abilify for now Psych consulted DVT prophylaxis may need Lovenox if with prolonged hospital stay Full Code as per patient Disposition anticipate discharge to the [facility] when medically stable above note prepared 08/01/16 addendum 08/03/16 called [facility] to verify patient's information and patient's background with RN patient's additional medical records requested, RN informed me about a consent patient signed allowing information to be relayed to parents, to be faxed as well; discussed with patient and he also confirmed that he is allowing undersigned to update his parents about his condition called patient's parents, and discussed with them at length, in detail re: patient's medical condition and plan of care all questions were answered, they were comfortable and agreeable with plan of care Shivam Lee MD Advanced Directives Existing Living Will: No Existing Power of Children'S Lunchroom Supervisor: No VTE Prophylaxis VTE Risk Assessment Done? Y/N: Yes Risk Level: Moderate
--- NOTE | 2016-08-01 23:23 | EMERGENCY ROOM VISIT NOTE ---
History Report prepared by Dbibmaria fernanda: Vinny Copeland Under the Supervision of: Dr. Jaspreet Ovalle D.O. First contact with patient: 17:14 Stated Complaint: TACH CARDIA/ EVAL. FR [facility] History of Present Illness The patient is a 26 year old male who was referred to the Emergency Room for acute abnormal blood work. The patient was referred to the ED from [place], where he stays on a [address]. The patient became tachycardic last night. He does not currently have any complaints. Patient denies headache, change in vision, fevers , chest pain, shortness of breath, nausea, vomiting, diarrhea, pain with urination, and melena. He has been eating and drinking okay. He does admit to a cough and URI symptoms 2 weeks ago but notes that these symptoms have resolved. He recently has started a new psychiatric medication. Source of History: patient, transfer records Onset: last night Position: other (blood work) Quality: other (abnormal) Timing: other (acute) Associated Symptoms: No SOB, No chest pain, No diarrhea, No fevers, No headache, No melena, No nausea, No urinary symptoms, No vomiting Review of Systems See HPI for pertinent positives & negatives. A total of 10 systems reviewed and were otherwise negative. Past Medical & Surgical Medical Problems: (1) No pertinent past medical history (2) Paranoid schizophrenia (3) Tachycardia Family History Patient reports no known family medical history. Social History Smoking Status: Never Smoker Marital Status: single Housing Status: other Occupation Status: unemployed Current/Historical Medications Scheduled Aripiprazole (Abilify), 30 MG PO DAILY Clozapine (Clozapine), 275 MG PO QPM Allergies Coded Allergies: Cashew (Unverified Allergy, Unknown, unknown, 07/20/16) Haloperidol (Verified Allergy, Unknown, tongue swelling, 07/20/16) Physical Exam Vital Signs Date Time Temp Pulse Resp B/P Pulse Ox O2 Delivery O2 Flow Rate FiO2 08/01/16 19:52 161 28 99/58 97 Room Air 08/01/16 18:17 153 18 107/73 08/01/16 17:29 97 Room Air 08/01/16 17:29 97 Room Air 08/01/16 17:29 37.0 160 20 164/131 97 Room Air 08/01/16 17:24 256 Physical Exam GENERAL: Sitting up in bed, disheveled, nontoxic. EYE EXAM: normal conjunctiva. OROPHARYNX: no exudate, no erythema, lips, buccal mucosa, and tongue normal and mucous membranes are moist NECK: supple, no nuchal rigidity, no adenopathy, non-tender LUNGS: Clear to auscultation. Normal chest wall mechanics HEART: Tachycardic, S1 normal and S2 normal ABDOMEN: abdomen soft, non-tender, normo-active bowel sounds, no masses, no rebound or guarding. BACK: Back is symmetrical on inspection and there is no deformity, no midline tenderness, no CVA tenderness. SKIN: no rashes and no bruising UPPER EXTREMITIES: upper extremities are grossly normal. LOWER EXTREMITIES: No pitting edema. NEURO EXAM: Alert, following commands, cranial nerves II-XII grossly intact, normal speech, no muscle rigidity, reflexes in lower extremities are 3/4, no clonus. Medical Decision & Procedures ER Provider Diagnostic Interpretation: Xray results per the radiologist and my interpretation. Other results have been interpreted by the radiologist and reviewed by me. CHEST ONE VIEW PORTABLE CLINICAL HISTORY: Fever. Tachycardia. COMPARISON STUDY: No previous studies for comparison. FINDINGS: The patient is rotated. There is no pneumothorax or pleural effusion. There is no lobar consolidation. There is mild enlargement of the cardiac silhouette. There may be pulmonary vascular congestion. IMPRESSION: 1. Mild enlargement of the cardiac silhouette with pulmonary vascular congestion. 2. No lobar consolidation. Electronically signed by: Ryan Tomlinson M.D. 08/01/2016 6:09 PM Dictated Date/Time: 08/01/2016 6:09 PM Laboratory Results 08/01/16 17:38 Red Blood Count 5.22, Mean Corpuscular Volume 80.7, Mean Corpuscular Hemoglobin 28.7, Mean Corpuscular Hemoglobin Concent 35.6, Mean Platelet Volume 9.1, Neutrophils (%) (Auto) 71.3, Lymphocytes (%) (Auto) 12.4, Monocytes (%) (Auto) 12.1, Eosinophils (%) (Auto) 3.6, Basophils (%) (Auto) 0.1, Neutrophils # (Auto ) 7.00, Lymphocytes # (Auto) 1.22, Monocytes # (Auto) 1.19, Eosinophils # (Auto ) 0.35, Basophils # (Auto) 0.01 Test 08/01/16 17:27 3/30/17 17:38 08/01/16 17:46 08/01/16 17:47 White Blood Count 9.82 K/uL (4.8-10.8) Red Blood Count 5.22 M/uL (4.7-6.1) Hemoglobin 15.0 g/dL (14.0-18.0) Hematocrit 42.1 % (42-52) Mean Corpuscular Volume 80.7 fL (80-100) Mean Corpuscular Hemoglobin 28.7 pg (25-34) Mean Corpuscular Hemoglobin Concent 35.6 g/dl (32-36) Platelet Count 186 K/uL (130-400) Mean Platelet Volume 9.1 fL (7.4-10.4) Neutrophils (%) (Auto) 71.3 % Lymphocytes (%) (Auto) 12.4 % Monocytes (%) (Auto) 12.1 % Eosinophils (%) (Auto) 3.6 % Basophils (%) (Auto) 0.1 % Neutrophils # (Auto) 7.00 K/uL (1.4-6.5) Lymphocytes # (Auto) 1.22 K/uL (1.2-3.4) Monocytes # (Auto) 1.19 K/uL (0.11-0.59) Eosinophils # (Auto) 0.35 K/uL (0-0.5) Basophils # (Auto) 0.01 K/uL (0-0.2) RDW Standard Deviation 39.9 fL (36.4-46.3) RDW Coefficient of Variation 13.5 % (11.5-14.5) Immature Granulocyte % (Auto) 0.5 % Immature Granulocyte # (Auto) 0.05 K/uL (0.00-0.02) Prothrombin Time 12.3 SECONDS (9.0-12.0) Prothromb Time International Ratio 1.1 (0.9-1.1) Est Creatinine Clear Calc Drug Dose 120.2 ml/min Osmolality 270 mOsm/kg (280-300) Magnesium Level 2.4 mg/dl (1.8-2.4) Total Bilirubin 0.5 mg/dl (0.2-1) Direct Bilirubin 0.1 mg/dl (0-0.2) Aspartate Amino Transf (AST/SGOT) 34 U/L (15-37) Alanine Aminotransferase (ALT/SGPT) 25 U/L (12-78) Alkaline Phosphatase 57 U/L (45-117) Total Creatine Kinase 457 U/L (39-308) Creatine Kinase MB 5.0 ng/ml (0.5-3.6) Creatine Kinase MB Ratio 1.1 (0-3.0) Troponin I 3.550 ng/ml (0-0.045) Pro-B-Type Natriuretic Peptide 03669 pg/ml (0-450) Total Protein 7.0 gm/dl (6.4-8.2) Albumin 3.2 gm/dl (3.4-5.0) Procalcitonin 0.48 ng/mL (0-0.5) Thyroid Stimulating Hormone (TSH) 2.060 uIu/ml (0.300-4.500) Free Thyroxine 1.30 ng/dl (0.80-1.60) Bedside Lactic Acid Venous 1.64 mmol/L (0.90-1.70) Bedside Troponin I 3.090 ng/ml (0-0.045) Bedside Hemoglobin 15.6 g/dl (14.0-18.0) Bedside Hematocrit 46 % (42-52) Bedside Sodium 131 mEq/L (135-144) Bedside Potassium 3.7 mEq/L (3.3-5.0) Bedside Chloride 95 mEq/L (101-112) Bedside Total CO2 20 mEq/l (24-31) Bedside Blood Urea Nitrogen 17 mg/dl (7-18) Bedside Creatinine 0.9 mg/dl (0.6-1.3) Bedside Glucose (other) 118 mg/dl (70-99) Bedside Ionized Calcium (Ursula) 0.99 mmol/l (1.12-1.32) Laboratory results per my review. Medications Administered Medications (Trade) Dose Ordered Sig/Speedy Route Start Time Stop Time Status Last Admin Dose Admin Sodium Chloride (Nss 1000ml) 2,000 ml @ 999 mls/hr Q2H1M STAT IV 08/01/16 17:38 08/01/16 19:38 DC 08/01/16 17:44 999 MLS/HR Metoprolol Tartrate (Lopressor Tab) 50 mg STK-MED ONCE .ROUTE 08/01/16 19:45 08/01/16 19:46 DC 08/01/16 19:40 25 MG ECG Indication: tachycardia Rate (beats per minute): 158 Rhythm: sinus tachycardia Findings: left axis deviation, other (late R-wave progression) ED Course ED COURSE: Vital signs were reviewed and showed tachycardia. The patients medical record was reviewed The above diagnostic studies were performed and reviewed. ED treatments and interventions as stated above. 1715: The patient was evaluated in room C4. A complete history and physical examination was performed. 1720 Bedside ultrasound of the heart was performed. Poor cardiac contractility and decreased EF noted. 1738: NSS 2000 ml @ 999 mls/hr. 1808: Ativan 1 mg IV. 1830: Patient evaluated at bedside by Dr. Connolly, Director Of Category Management. He did an US of the calves that showed no DVTs. Cardiology being paged. 1842: Spoke with Dr. Lomas, Manager [employer]vac. He is aware of the case. 1844: Discussed the case with Meghan Henley [facility] The patient will be evaluated. 1900: Upon reevaluation, the patient is stable.I discussed my findings with the patient and he understands and agrees with the treatment plan. Based on the patients age, coexisting illnesses, exam and lab findings the decision to treat as an inpatient was made. The patient remained stable while under my care. The patient will be evaluated for further management. Medical Decision Differential diagnoses includes but is not limited to acute coronary syndrome, myocardial infarction, pericarditis, pulmonary embolus, aortic dissection, pneumonia, pneumothorax, musculoskeletal, shingles, esophageal. Patient is a 26-year-old male who presents the ER from [place] for tachycardia. He is found to have a heart rate in the 160s with systolic pressures in the 90s. On my evaluation he is resting comfortably and has no complaints. My bedside ultrasound shows small pericardial effusion along with poor cardiac contractility. He was given 2 L normal saline with slight improvement of his heart rate to the 150s. Labs and IV were obtained. He was sent for concern for neuroleptic malignant syndrome. He had no altered mental status and no clonus or rigidity. There is also no fever. Labs show no significant leukocytosis or anemia. EKG did not suggest ischemia. BMP was unremarkable. Troponin was positive at 3.5. TSH is normal. Influenza was negative. Critical care attending was in the ER briefly discussed the case and he evaluated the patient at bedside formally. He performed ultrasound of the lower extremities which showed no DVTs and consequently CT PE was canceled. I consulted cardiology for stat bedside echo which was performed. They gave him a small dose of Lopressor and recommended watching him closely following the echo. His systolic pressures did improve into the 120s. Patient was monitored closely. Uncertain of the etiology of this cardiomyopathy which could be caused from a myocarditis from the recent infection versus the psychiatric medications that he was placed on recently. Consults Time Called: 1819 Consulting Physician: Dr. Connolly, Director Of Category Management. Returned Call: 1829 1829: Patient evaluated at bedside by Dr. Connolly, Director Of Category Management. Cardiology being paged. Additional Consults: Time Called: 1829 Consulted Physician: Dr. Lomas, Manager [employer] Returned Call: 1841 Additional Comments: 1841: Spoke with Dr. Lomas, Manager [employer]. He is aware of the case. Time Called: 1839 Consulted Physician: Meghan Henley PA-C, [facility] Returned Call: 1843 Additional Comments: 1843: Discussed the case with Meghan Henley PA-C, [facility]. The patient will be evaluated. Impression Primary Impression: Cardiomyopathy Additional Impressions: Elevated troponin Myocarditis Tachycardia Scribe Attestation The scribe's documentation has been prepared under my direction and personally reviewed by me in its entirety. I confirm that the note above accurately reflects all work, treatment, procedures, and medical decision making performed by me. Departure Information Dispostion Being Evaluated By Hospitalist Referrals No Doctor, Assigned (PCP) Problem Qualifiers Primary Impression: Cardiomyopathy Cardiomyopathy type: unspecified Qualified Codes: I42.9 - Cardiomyopathy, unspecified Additional Impressions: Myocarditis Myocarditis type: unspecified Chronicity: unspecified Qualified Codes: I51.4 - Myocarditis, unspecified
[2016-08-01 23:45] LABS: INFLUENZA A PCR Neg for Influ A (NEG); INFLUENZA B PCR Neg for Influ B (NEG)
[2016-08-01] MEDS ORDERED: ALBUMIN HUMAN 25% 12.5 GM/50 ML VIAL IV ONE (23:45)
[2016-08-02] VITALS (31 sets, daily range): BP systolic 71–120; BP diastolic 45–94; PULSE 125–169; TEMP 36.4–37.4; O2SAT 85–99
[2016-08-02] MEDS ORDERED: OPTIRAY 320 IV PRN (00:15)
[2016-08-02] MEDS ORDERED: INFLUENZA VIRUS QUAD VACCINE 0.5 ML SYR IM. ONE (00:15)
[2016-08-02] MEDS ORDERED: INFLUENZA ADMINISTRATION CHARGE ONE (00:15)
[2016-08-02 00:24] LABS: BUN/CREATININE RATIO 13.4 (10-20); CALCIUM 7.7 mg/dl (8.5-10.1); POTASSIUM 3.9 mmol/L (3.5-5.1)
[2016-08-02 00:53] LABS: PARTIAL THROMBOPLASTIN RATIO 1.4
[2016-08-02] MEDS ORDERED: METOPROLOL TARTRATE 1 MG/ML VIAL IV STA (01:14)
[2016-08-02] MEDS ORDERED: POTASSIUM CHLORIDE 10 MEQ TABCR PO STA (01:15)
[2016-08-02] MEDS ORDERED: METOPROLOL TARTRATE 1 MG/ML VIAL ONE (01:26)
[2016-08-02] MEDS ORDERED: ALBUMIN HUMAN 25% 12.5 GM/50 ML VIAL IV ONE ×2 (01:30→04:00)
[2016-08-02 03:42] LABS: BENZODIAZEPINE, URINE NEG (NEG); COCAINE,URINE NEG (NEG); PHENCYCLIDINE, URINE NEG (NEG); URINE APPEARANCE CLEAR (CLEAR); URINE BILIRUBIN NEG (NEG); URINE COLOR YELLOW; URINE EPITHELIAL CELL AUTO >30 /lpf (0-5); URINE NITRITE NEG (NEG); URINE SPECIFIC GRAVITY > 1.045 (1.000-1.030); UROBILINOGEN NEG (NEG); ZZUR CULT IF INDIC CLEAN CATCH YES
[2016-08-02 03:43] LABS: MANUAL MICROSCOPIC REQUIRED? NO; REVIEW REQ? YES
[2016-08-02] MEDS ORDERED: IPRATROPIUM BROMIDE NEB SOLN 0.02% 2.5 ML VIAL INH ONE (04:05)
[2016-08-02] MEDS ORDERED: LEVALBUTEROL 1.25MG/0.5ML NEB INH ONE (04:05)
--- NOTE | 2016-08-02 04:10 | Progress Note ---
Internal Med Progress Note Date of Service: Aug 02, 2016. Provider Documentation: Vital Signs: Date Time Temp Pulse Resp B/P Pulse Ox O2 Delivery O2 Flow Rate FiO2 08/02/16 06:04 149 40 93/54 08/02/16 05:04 151 29 91/45 08/02/16 05:04 151 29 91/45 08/02/16 05:02 148 24 86/47 92 08/02/16 05:02 148 24 86/47 92 08/02/16 04:59 145 41 101/64 92 08/02/16 04:59 101/64 08/02/16 04:44 95/49 08/02/16 04:37 155 25 95/49 94 08/02/16 04:33 102/69 08/02/16 04:31 152 36 102/69 93 08/02/16 04:27 157 26 95 Nasal Cannula 3.0 08/02/16 04:00 94 Nasal Cannula 3.0 08/02/16 04:00 36.6 158 25 110/60 95 Nasal Cannula 3.0 08/02/16 03:01 168 39 89/60 93 08/02/16 02:22 154 28 103/56 93 Nasal Cannula 3.0 08/02/16 02:15 167 28 98/62 87 Nasal Cannula 3.0 08/02/16 02:10 149 22 87/66 96 Nasal Cannula 3.0 08/02/16 02:05 154 21 95/61 96 Nasal Cannula 3.0 08/02/16 01:40 145 25 119/94 92 Nasal Cannula 3.0 08/02/16 01:39 152 34 91/54 89 Nasal Cannula 3.0 08/02/16 01:33 148 14 93/64 92 Nasal Cannula 3.0 08/02/16 01:27 150 33 71/59 94 Nasal Cannula 3.0 08/02/16 01:26 155 120/76 08/02/16 01:23 169 24 86/66 91 Nasal Cannula 3.0 08/02/16 01:00 146 33 120/76 08/02/16 00:01 94 Nasal Cannula 3.0 08/02/16 00:00 36.8 158 23 102/60 85 Nasal Cannula 3.0 08/01/16 23:00 148 24 92/62 96 Nasal Cannula 3.0 08/01/16 23:00 148 32 92/62 96 08/01/16 22:00 159 18 120/93 93 Nasal Cannula 3.0 08/01/16 21:00 36.8 157 22 92/57 92 Room Air 08/01/16 20:55 36.8 155 28 92/57 94 Room Air 08/01/16 20:40 37.0 156 28 96/53 95 08/01/16 19:52 161 28 99/58 97 Room Air 08/01/16 18:17 153 18 107/73 08/01/16 17:29 97 Room Air 08/01/16 17:29 97 Room Air 08/01/16 17:29 37.0 160 20 164/131 97 Room Air 08/01/16 17:24 256 Lab Results: Results Past 24 Hours Test 08/01/16 17:38 08/01/16 17:46 08/01/16 17:47 08/01/16 21:00 Range/Units White Blood Count 9.82 4.8-10.8 K/uL Red Blood Count 5.22 4.7-6.1 M/uL Hemoglobin 15.0 14.0-18.0 g/dL Hematocrit 42.1 42-52 % Mean Corpuscular Volume 80.7 80-100 fL Mean Corpuscular Hemoglobin 28.7 25-34 pg Mean Corpuscular Hemoglobin Concent 35.6 32-36 g/dl Platelet Count 186 130-400 K/uL Mean Platelet Volume 9.1 7.4-10.4 fL Neutrophils (%) (Auto) 71.3 % Lymphocytes (%) (Auto) 12.4 % Monocytes (%) (Auto) 12.1 % Eosinophils (%) (Auto) 3.6 % Basophils (%) (Auto) 0.1 % Neutrophils # (Auto) 7.00 1.4-6.5 K/uL Lymphocytes # (Auto) 1.22 1.2-3.4 K/uL Monocytes # (Auto) 1.19 0.11-0.59 K/uL Eosinophils # (Auto) 0.35 0-0.5 K/uL Basophils # (Auto) 0.01 0-0.2 K/uL RDW Standard Deviation 39.9 36.4-46.3 fL RDW Coefficient of Variation 13.5 11.5-14.5 % Immature Granulocyte % (Auto) 0.5 % Immature Granulocyte # (Auto) 0.05 0.00-0.02 K/uL Prothrombin Time 12.3 9.0-12.0 SECONDS Prothromb Time International Ratio 1.1 0.9-1.1 Activated Partial Thromboplast Time 37.2 21.0-31.0 SECONDS Partial Thromboplastin Ratio 1.4 Sodium Level 130 136-145 mmol/L Potassium Level 3.6 3.5-5.1 mmol/L Chloride Level 97 98-107 mmol/L Carbon Dioxide Level 23 21-32 mmol/L Anion Gap 10.0 21.0 16-25 mmol/L Blood Urea Nitrogen 18 7-18 mg/dl Creatinine 1.10 0.60-1.40 mg/dl Est Creatinine Clear Calc Drug Dose 120.2 ml/min Estimated GFR () 107.6 Estimated GFR (Non- 92.8 BUN/Creatinine Ratio 16.0 10-20 Random Glucose 117 70-99 mg/dl Osmolality 270 280-300 mOsm/kg Calcium Level 8.0 8.5-10.1 mg/dl Magnesium Level 2.4 1.8-2.4 mg/dl Total Bilirubin 0.5 0.2-1 mg/dl Direct Bilirubin 0.1 0-0.2 mg/dl Aspartate Amino Transf (AST/SGOT) 34 15-37 U/L Alanine Aminotransferase (ALT/SGPT) 25 12-78 U/L Alkaline Phosphatase 57 45-117 U/L Total Creatine Kinase 457 39-308 U/L Creatine Kinase MB 5.0 0.5-3.6 ng/ml Creatine Kinase MB Ratio 1.1 0-3.0 Troponin I 3.550 0-0.045 ng/ml Pro-B-Type Natriuretic Peptide 38952 0-450 pg/ml Total Protein 7.0 6.4-8.2 gm/dl Albumin 3.2 3.4-5.0 gm/dl Procalcitonin 0.48 0-0.5 ng/mL Thyroid Stimulating Hormone (TSH) 2.060 0.300-4.500 uIu/ml Free Thyroxine 1.30 0.80-1.60 ng/dl Bedside Lactic Acid Venous 1.64 0.90-1.70 mmol/L Bedside Troponin I 3.090 0-0.045 ng/ml Bedside Hemoglobin 15.6 14.0-18.0 g/dl Bedside Hematocrit 46 42-52 % Bedside Sodium 131 135-144 mEq/L Bedside Potassium 3.7 3.3-5.0 mEq/L Bedside Chloride 95 101-112 mEq/L Bedside Total CO2 20 24-31 mEq/l Bedside Blood Urea Nitrogen 17 7-18 mg/dl Bedside Creatinine 0.9 0.6-1.3 mg/dl Bedside Glucose (other) 118 70-99 mg/dl Bedside Ionized Calcium (Ursula) 0.99 1.12-1.32 mmol/l Influenza Type A (RT-PCR) Neg for Influ A NEG Influenza Type A Antigen Neg for Influ A NEG Influenza Type B Antigen Neg for Influ B NEG Influenza Type B (RT-PCR) Neg for Influ B NEG Test 08/01/16 21:22 08/01/16 21:23 08/01/16 21:34 08/01/16 23:36 Range/Units Lactic Acid Level 1.6 0.4-2.0 mmol/L Bedside Glucose 119 70-99 mg/dl Blood Gas Sample Site R Radial Bedside Blood Gas pH (LAB) 7.44 7.35-7.45 Bedside Blood Gas pCO2 (LAB) 27 35-46 mmHg Bedside Blood Gas pO2 (LAB) 52 80-95 mmHg Bedside Blood Gas HCO3 (LAB) 19 19-24 meq/L Bedside Blood Gas Total CO2 19 24-31 mEq/l Bedside Blood Gas Base Excess (LAB) -6.0 -9-1.8 meq/L Bedside Blood Gas O2 Saturation 89.0 90-95 % Zane Test Pass Oxygen Delivery Device Room Air Sodium Level 132 136-145 mmol/L Potassium Level 3.9 3.5-5.1 mmol/L Chloride Level 100 98-107 mmol/L Carbon Dioxide Level 22 21-32 mmol/L Anion Gap 10.0 3-11 mmol/L Blood Urea Nitrogen 13 7-18 mg/dl Creatinine 1.00 0.60-1.40 mg/dl Est Creatinine Clear Calc Drug Dose 131.7 ml/min Estimated GFR () 120.7 Estimated GFR (Non- 104.1 BUN/Creatinine Ratio 13.4 10-20 Random Glucose 120 70-99 mg/dl Calcium Level 7.7 8.5-10.1 mg/dl Albumin 2.8 3.4-5.0 gm/dl Test 08/01/16 23:58 08/02/16 03:15 08/02/16 04:10 Range/Units Lactic Acid Level 1.6 0.4-2.0 mmol/L Urine Color YELLOW Urine Appearance CLEAR CLEAR Urine pH 6.0 4.5-7.5 Urine Specific Combs > 1.045 1.000-1.030 Urine Protein 1+ NEG Urine Glucose (UA) NEG NEG Urine Ketones 3+ NEG Urine Occult Blood 2+ NEG Urine Nitrite NEG NEG Urine Bilirubin NEG NEG Urine Urobilinogen NEG NEG Urine Leukocyte Esterase NEG NEG Urine WBC (Auto) 5-10 0-5 /hpf Urine RBC (Auto) 5-10 0-4 /hpf Urine Hyaline Casts (Auto) 1-5 0-5 /lpf Urine Epithelial Cells (Auto) >30 0-5 /lpf Urine Bacteria (Auto) NEG NEG Urine Renal Epithelial Cells 0-5 /lpf Urine Yeast (Auto) NONE PRSENT Urine Random Sodium 14 mEq/L Urine Opiates Screen NEG NEG Urine Methadone, Qualitative NEG NEG Urine Barbiturates NEG NEG Urine Phencyclidine (PCP) Level NEG NEG Ur Amphetamine/Methamphetamine NEG NEG MDMA (Ecstasy) Screen NEG NEG Urine Benzodiazepines Screen NEG NEG Urine Cocaine Metabolite NEG NEG Urine Marijuana (THC) NEG NEG White Blood Count 11.08 4.8-10.8 K/uL Red Blood Count 4.77 4.7-6.1 M/uL Hemoglobin 13.7 14.0-18.0 g/dL Hematocrit 39.0 42-52 % Mean Corpuscular Volume 81.8 80-100 fL Mean Corpuscular Hemoglobin 28.7 25-34 pg Mean Corpuscular Hemoglobin Concent 35.1 32-36 g/dl Platelet Count 176 130-400 K/uL Mean Platelet Volume 9.0 7.4-10.4 fL Neutrophils (%) (Auto) 73.6 % Lymphocytes (%) (Auto) 13.8 % Monocytes (%) (Auto) 8.9 % Eosinophils (%) (Auto) 2.2 % Basophils (%) (Auto) 0.2 % Neutrophils # (Auto) 8.16 1.4-6.5 K/uL Lymphocytes # (Auto) 1.53 1.2-3.4 K/uL Monocytes # (Auto) 0.99 0.11-0.59 K/uL Eosinophils # (Auto) 0.24 0-0.5 K/uL Basophils # (Auto) 0.02 0-0.2 K/uL RDW Standard Deviation 41.1 36.4-46.3 fL RDW Coefficient of Variation 13.6 11.5-14.5 % Immature Granulocyte % (Auto) 1.3 % Immature Granulocyte # (Auto) 0.14 0.00-0.02 K/uL Sodium Level 131 136-145 mmol/L Potassium Level 3.9 3.5-5.1 mmol/L Chloride Level 98 98-107 mmol/L Carbon Dioxide Level 23 21-32 mmol/L Anion Gap 10.0 3-11 mmol/L Blood Urea Nitrogen 12 7-18 mg/dl Creatinine 1.10 0.60-1.40 mg/dl Est Creatinine Clear Calc Drug Dose 119.7 ml/min Estimated GFR () 107.6 Estimated GFR (Non- 92.8 BUN/Creatinine Ratio 10.6 10-20 Random Glucose 108 70-99 mg/dl Calcium Level 7.6 8.5-10.1 mg/dl Phosphorus Level 2.3 2.5-4.9 mg/dl Magnesium Level 2.3 1.8-2.4 mg/dl Microbiology Results 08/01/16 Blood Culture, Received Pending 08/01/16 Blood Culture, Received Pending 08/01/16 MRSA DNA Surveillance Screen - Final, Complete Specimen Negative for MRSA by DNA Probe 08/02/16 Urine Culture, Received Pending
[2016-08-02 04:24] LABS: MEAN CELL VOLUME 81.8 fL (80-100); MEAN CORPUSCULAR HEMOGLOBIN 28.7 pg (25-34); MEAN CORPUSCULAR HGB CONC 35.1 g/dl (32-36); PLATELET COUNT 176 K/uL (130-400); RED BLOOD COUNT 4.77 M/uL (4.7-6.1); WHITE BLOOD COUNT 11.08 K/uL (4.8-10.8)
[2016-08-02] MEDS ORDERED: METOPROLOL TARTRATE 25 MG TAB PO ONE (04:26)
[2016-08-02 04:48] LABS: BUN/CREATININE RATIO 10.6 (10-20); CALCIUM 7.6 mg/dl (8.5-10.1); CREATININE 1.1 mg/dl (0.60-1.40); MAGNESIUM 2.3 mg/dl (1.8-2.4); PHOSPHORUS 2.3 mg/dl (2.5-4.9); POTASSIUM 3.9 mmol/L (3.5-5.1)
[2016-08-02 05:05] LABS: BASO % 0.2 %; BASO ABS # 0.02 K/uL (0-0.2); COMPLETE YES; EOS % 2.2 %; IG% 1.3 %; LYMPH % 13.8 %; LYMPH ABS # 1.53 K/uL (1.2-3.4); MONO % 8.9 %; NEUT % 73.6 %
[2016-08-02] MEDS ORDERED: LEVALBUTEROL 1.25MG/0.5ML NEB INH PRN (06:00)
--- NOTE | 2016-08-02 07:29 | DIAGNOSTIC IMAGING REPORT ---
CHEST CTA for PULMONARY ARTERIES CT DOSE: 663.99 mGy.cm HISTORY: Chest pain dyspnea TECHNIQUE: Multiaxial CT images of the chest were performed following the intravenous administration of contrast to evaluate the pulmonary arteries. Maximal intensity projection images were also obtained. COMPARISON STUDY: None. FINDINGS: Thoracic aorta is normal in course and caliber. Study is compromised due to patient motion. The third order vessels are not well evaluated. Moderate cardia megaly. Minimal pericardial effusion. No evidence for main central pulmonary embolus. Findings suggesting mild congestive failure. Trace pleural effusion both lung bases. IMPRESSION: 1. Limited study due to severe patient respiratory and somatic motion. 2. No evidence for main or central pulmonary embolus. 3. Third order vessels are not diagnostically evaluated due to motion. 4. Findings of congestive failure. 5. Small pericardial effusion Electronically signed by: Harjinder May M.D. 08/02/2016 7:28 AM Dictated Date/Time: 08/02/2016 7:26 AM
[2016-08-02] MEDS: METOPROLOL TARTRATE 25 MG TAB PO SCH ×4 (09:00→21:19)
[2016-08-02] MEDS ORDERED: ENOXAPARIN 40 MG/0.4 ML SYR SQ ONE (11:50)
--- NOTE | 2016-08-02 11:50 | Cardiology Follow-Up ---
Subjective General Date of Service: Aug 02, 2016. Chief Complaint: follow up Pt evaluation today including: conversation w/ patient, physical exam, lab review, conversation w/ financial services consultant History of Present Illness The patient is a 26 year old male seen in follow up. Patient remains tachycardic, sinus tachycardia at 150 bpm. Blood pressure remains low with SBP in th 90's for the most part. Patient received 3 doses of IV albumin overnight. Also received two doses of IV metoprolol with transient hypotension , SBP of 70 mm Hg. Patient denies cardiac complaint other than occasional cough. Denies chest pain or shortness of breath. Attempted to explain his cardiac issues , but patient's cognition limits his understanding. Allergies Coded Allergies: Cashew (Unverified Allergy, Unknown, unknown, 07/20/16) Haloperidol (Verified Allergy, Unknown, tongue swelling, 07/20/16) Social History Smoking Status: Never Smoker Problem List Medical Problems: (1) Cardiomyopathy Status: Acute (2) Electrolyte disturbance Status: Acute (3) Elevated troponin Status: Acute (4) Myocarditis Status: Acute Physical Exam Vital Signs Last Vital Signs Documentation Date Time Temp Pulse Resp B/P Pulse Ox O2 Delivery O2 Flow Rate FiO2 08/02/16 06:04 149 40 93/54 08/02/16 05:02 92 08/02/16 04:27 Nasal Cannula 3.0 08/02/16 04:00 36.6 Physical Exam Constitutional: Level of Distress: NAD Neck: supple Lungs: Auscultation: no rales/crackles, no rhonchi Cardiovascular: Heart Auscultation: no murmurs, tachycardia Extremities: no edema Neurologic: Gait & Station: pertinent finding (moves all 4 extremities, follows commands. ) Assessment and Plan Assessment and Plan Impression: 26-year-old male 1. Newly recognized (non ischemic) cardiomyopathy, severe LV systolic dysfunction, small circumferential pericardial effusion. -Perhaps viral cardiomyopathy, persistent tachycardia induced, versus adverse medication side effect or even a combination of adverse medication side effect since his recent medications have the potential for causing tachycardia 2. Sinus tachycardia 3. Hypotension, but not in low output shock, perfusing well, cognitive impairment due to his underlying psychiatric disease 4. Low sodium, low albumin, likely due to chronic , however compensated , volume overload. 5. Cough, perhaps due to underlying CHF rather than lung disease 6. Schizophrenia Discussion/recommendations: In my initial consultation, I had recommended initiation of cautious oral metoprolol tartrate with hold for heart rate less than 60 and systolic blood pressure less than 100 mmHg. I had personally decided against giving him more aggressive IV medication such as IV metoprolol when I had seen him last evening. Would avoid administering IV albumin, albumin level is likely low due to relative increase circulatory volume, I do not think this will help his blood pressure or help to mobilize fluid and will likely contribute to progressive volume overload. Patient noted hypotension after IV metoprolol last evening, but I would anticipate that oral metoprolol would be tolerated from a blood pressure standpoint. I have lowered the hold parameters for heart rate less than 60 and systolic blood pressure less than 90 mmHg, however the patient has declined the medication this morning thus far. I would hold off on diuretics at this point as he is not dyspneic and his lungs are clear and diuresing him likely contributed to further low blood pressure. Would hold off on bronchodilators such as opening's as do not want to contribute anymore tachycardia, and a do not believe these medications will help him from a cost standpoint. His psychiatric medications with the exception of lorazepam have been on hold. Unfortunately his schizophrenia is a significant barrier to his cardiac treatment in terms of him being adherent to the treatment program. And of course his cardiac diagnosis normal limits medication options for his psychosis. Recommend adding Lovenox 40 subcutaneous daily for DVT prophylaxis if patient will accept this medication. I had a discussion with Dr. Buckley, with Hospital service that this patient would benefit from consideration toward transfer to a tertiary center that is closer to where his family lives synthetic be more involved in his care. Would recommend a center that has advanced heart failure service capability as well as inpatient psychiatry.. Laboratory Results Last 24 Hours Test 08/01/16 17:38 08/01/16 17:46 08/01/16 17:47 08/01/16 21:00 White Blood Count 9.82 K/uL Red Blood Count 5.22 M/uL Hemoglobin 15.0 g/dL Hematocrit 42.1 % Mean Corpuscular Volume 80.7 fL Mean Corpuscular Hemoglobin 28.7 pg Mean Corpuscular Hemoglobin Concent 35.6 g/dl Platelet Count 186 K/uL Mean Platelet Volume 9.1 fL Neutrophils (%) (Auto) 71.3 % Lymphocytes (%) (Auto) 12.4 % Monocytes (%) (Auto) 12.1 % Eosinophils (%) (Auto) 3.6 % Basophils (%) (Auto) 0.1 % Neutrophils # (Auto) 7.00 K/uL Lymphocytes # (Auto) 1.22 K/uL Monocytes # (Auto) 1.19 K/uL Eosinophils # (Auto) 0.35 K/uL Basophils # (Auto) 0.01 K/uL RDW Standard Deviation 39.9 fL RDW Coefficient of Variation 13.5 % Immature Granulocyte % (Auto) 0.5 % Immature Granulocyte # (Auto) 0.05 K/uL Prothrombin Time 12.3 SECONDS Prothromb Time International Ratio 1.1 Activated Partial Thromboplast Time 37.2 SECONDS Partial Thromboplastin Ratio 1.4 Sodium Level 130 mmol/L Potassium Level 3.6 mmol/L Chloride Level 97 mmol/L Carbon Dioxide Level 23 mmol/L Anion Gap 10.0 mmol/L 21.0 mmol/L Blood Urea Nitrogen 18 mg/dl Creatinine 1.10 mg/dl Est Creatinine Clear Calc Drug Dose 120.2 ml/min Estimated GFR () 107.6 Estimated GFR (Non- 92.8 BUN/Creatinine Ratio 16.0 Random Glucose 117 mg/dl Osmolality 270 mOsm/kg Calcium Level 8.0 mg/dl Magnesium Level 2.4 mg/dl Total Bilirubin 0.5 mg/dl Direct Bilirubin 0.1 mg/dl Aspartate Amino Transf (AST/SGOT) 34 U/L Alanine Aminotransferase (ALT/SGPT) 25 U/L Alkaline Phosphatase 57 U/L Total Creatine Kinase 457 U/L Creatine Kinase MB 5.0 ng/ml Creatine Kinase MB Ratio 1.1 Troponin I 3.550 ng/ml Pro-B-Type Natriuretic Peptide 69480 pg/ml Total Protein 7.0 gm/dl Albumin 3.2 gm/dl Procalcitonin 0.48 ng/mL Thyroid Stimulating Hormone (TSH) 2.060 uIu/ml Free Thyroxine 1.30 ng/dl Bedside Lactic Acid Venous 1.64 mmol/L Bedside Troponin I 3.090 ng/ml Bedside Hemoglobin 15.6 g/dl Bedside Hematocrit 46 % Bedside Sodium 131 mEq/L Bedside Potassium 3.7 mEq/L Bedside Chloride 95 mEq/L Bedside Total CO2 20 mEq/l Bedside Blood Urea Nitrogen 17 mg/dl Bedside Creatinine 0.9 mg/dl Bedside Glucose (other) 118 mg/dl Bedside Ionized Calcium (Ursula) 0.99 mmol/l Influenza Type A (RT-PCR) Neg for Influ A Influenza Type A Antigen Neg for Influ A Influenza Type B Antigen Neg for Influ B Influenza Type B (RT-PCR) Neg for Influ B Test 08/01/16 21:22 08/01/16 21:23 08/01/16 21:34 08/01/16 23:36 Lactic Acid Level 1.6 mmol/L Bedside Glucose 119 mg/dl Blood Gas Sample Site R Radial Bedside Blood Gas pH (LAB) 7.44 Bedside Blood Gas pCO2 (LAB) 27 mmHg Bedside Blood Gas pO2 (LAB) 52 mmHg Bedside Blood Gas HCO3 (LAB) 19 meq/L Bedside Blood Gas Total CO2 19 mEq/l Bedside Blood Gas Base Excess (LAB) -6.0 meq/L Bedside Blood Gas O2 Saturation 89.0 % Zane Test Pass Oxygen Delivery Device Room Air Sodium Level 132 mmol/L Potassium Level 3.9 mmol/L Chloride Level 100 mmol/L Carbon Dioxide Level 22 mmol/L Anion Gap 10.0 mmol/L Blood Urea Nitrogen 13 mg/dl Creatinine 1.00 mg/dl Est Creatinine Clear Calc Drug Dose 131.7 ml/min Estimated GFR () 120.7 Estimated GFR (Non- 104.1 BUN/Creatinine Ratio 13.4 Random Glucose 120 mg/dl Calcium Level 7.7 mg/dl Albumin 2.8 gm/dl Test 08/01/16 23:58 08/02/16 03:15 08/02/16 04:10 Lactic Acid Level 1.6 mmol/L Urine Color YELLOW Urine Appearance CLEAR Urine pH 6.0 Urine Specific [place] > 1.045 Urine Protein 1+ Urine Glucose (UA) NEG Urine Ketones 3+ Urine Occult Blood 2+ Urine Nitrite NEG Urine Bilirubin NEG Urine Urobilinogen NEG Urine Leukocyte Esterase NEG Urine WBC (Auto) 5-10 /hpf Urine RBC (Auto) 5-10 /hpf Urine Hyaline Casts (Auto) 1-5 /lpf Urine Epithelial Cells (Auto) >30 /lpf Urine Bacteria (Auto) NEG Urine Renal Epithelial Cells /lpf Urine Yeast (Auto) Urine Random Sodium 14 mEq/L Urine Opiates Screen NEG Urine Methadone, Qualitative NEG Urine Barbiturates NEG Urine Phencyclidine (PCP) Level NEG Ur Amphetamine/Methamphetamine NEG MDMA (Ecstasy) Screen NEG Urine Benzodiazepines Screen NEG Urine Cocaine Metabolite NEG Urine Marijuana (THC) NEG White Blood Count 11.08 K/uL Red Blood Count 4.77 M/uL Hemoglobin 13.7 g/dL Hematocrit 39.0 % Mean Corpuscular Volume 81.8 fL Mean Corpuscular Hemoglobin 28.7 pg Mean Corpuscular Hemoglobin Concent 35.1 g/dl Platelet Count 176 K/uL Mean Platelet Volume 9.0 fL Neutrophils (%) (Auto) 73.6 % Lymphocytes (%) (Auto) 13.8 % Monocytes (%) (Auto) 8.9 % Eosinophils (%) (Auto) 2.2 % Basophils (%) (Auto) 0.2 % Neutrophils # (Auto) 8.16 K/uL Lymphocytes # (Auto) 1.53 K/uL Monocytes # (Auto) 0.99 K/uL Eosinophils # (Auto) 0.24 K/uL Basophils # (Auto) 0.02 K/uL RDW Standard Deviation 41.1 fL RDW Coefficient of Variation 13.6 % Immature Granulocyte % (Auto) 1.3 % Immature Granulocyte # (Auto) 0.14 K/uL Sodium Level 131 mmol/L Potassium Level 3.9 mmol/L Chloride Level 98 mmol/L Carbon Dioxide Level 23 mmol/L Anion Gap 10.0 mmol/L Blood Urea Nitrogen 12 mg/dl Creatinine 1.10 mg/dl Est Creatinine Clear Calc Drug Dose 119.7 ml/min Estimated GFR () 107.6 Estimated GFR (Non- 92.8 BUN/Creatinine Ratio 10.6 Random Glucose 108 mg/dl Calcium Level 7.6 mg/dl Phosphorus Level 2.3 mg/dl Magnesium Level 2.3 mg/dl
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
--- NOTE | 2016-08-02 16:16 | Psychiatric Progress Notes ---
Psychiatric Progress Note Date of Service Aug 02, 2016. Notes it was confirmed that Polo was officially discharged from the [facility] and his 304 commitment is no longer active. Given history of agitation and possibility of elopement and unpredictable behavior (given holding Abilify 30 mg and clozaril), feel 1-on-1 should continue. If he would attempt to leave [place], a 302 commitment procedure should be initiated for him to continue necessary medical care as his psychiatric condition cannot be appropriately treated/ monitored outside of a hospital setting off of psychiatric medications. Monitor for withdrawal dyskinesias which can be seen in abrupt discontinuation of Abilify, luckily it does have a long half life.
--- NOTE | 2016-08-02 19:41 | Progress Note ---
Subjective Date of Service: Aug 02, 2016. Subjective Pt evaluation today including: conversation w/ patient, physical exam, chart review, lab review, review of studies, conversation w/ regional engagement consultant, review of inpatient medication list Saw/examined the patient in room 110 He states he feels fine besides a cough No problems/issues to note Problem List Medical Problems: (1) Cardiomyopathy Status: Acute (2) Electrolyte disturbance Status: Acute (3) Elevated troponin Status: Acute (4) Myocarditis Status: Acute Review of Systems Constitutional: No chills, No fever Respiratory: + cough, No shortness of breath, No sputum Cardiac: No chest pain, No edema, No palpitations Psychiatric: + anxiety, No anhedonism, No depression symptoms, No insomnia Medications Current Inpatient Medications Medications (Trade) Dose Ordered Sig/Speedy Route Start Time Stop Time Status Last Admin Dose Admin Metoprolol Tartrate (Lopressor Tab) 25 mg QID PO 08/02/16 09:00 09/01/16 08:59 08/02/16 11:45 25 MG Acetaminophen (Tylenol Tab) 650 mg Q4H PRN PO 08/01/16 20:30 08/31/16 20:29 Lorazepam (Ativan Inj) 0.5 mg Q4H PRN IV 08/01/16 22:00 08/31/16 21:59 Ioversol (Optiray 320) 100 ml UD PRN IV 08/02/16 00:15 08/06/16 00:14 Enoxaparin Sodium (Lovenox Inj) 40 mg QAM SQ 08/03/16 09:00 09/02/16 08:59 Objective Vital Signs Date Time Temp Pulse Resp B/P Pulse Ox O2 Delivery O2 Flow Rate FiO2 08/02/16 16:33 95 Room Air 08/02/16 15:30 36.5 135 20 98/67 93 Nasal Cannula 3.0 08/02/16 12:00 95 Room Air 08/02/16 12:00 139 40 100/75 99 Room Air 08/02/16 08:00 99 Room Air 08/02/16 08:00 36.7 142 28 84/66 99 Room Air 08/02/16 06:04 149 40 93/54 08/02/16 05:04 151 29 91/45 08/02/16 05:04 151 29 91/45 08/02/16 05:02 148 24 86/47 92 08/02/16 05:02 148 24 86/47 92 08/02/16 04:59 145 41 101/64 92 08/02/16 04:59 101/64 08/02/16 04:44 95/49 08/02/16 04:37 155 25 95/49 94 08/02/16 04:33 102/69 08/02/16 04:31 152 36 102/69 93 08/02/16 04:27 157 26 95 Nasal Cannula 3.0 08/02/16 04:00 94 Nasal Cannula 3.0 08/02/16 04:00 36.6 158 25 110/60 95 Nasal Cannula 3.0 08/02/16 03:01 168 39 89/60 93 08/02/16 02:22 154 28 103/56 93 Nasal Cannula 3.0 08/02/16 02:15 167 28 98/62 87 Nasal Cannula 3.0 08/02/16 02:10 149 22 87/66 96 Nasal Cannula 3.0 08/02/16 02:05 154 21 95/61 96 Nasal Cannula 3.0 08/02/16 01:40 145 25 119/94 92 Nasal Cannula 3.0 08/02/16 01:39 152 34 91/54 89 Nasal Cannula 3.0 08/02/16 01:33 148 14 93/64 92 Nasal Cannula 3.0 08/02/16 01:27 150 33 71/59 94 Nasal Cannula 3.0 08/02/16 01:26 155 120/76 08/02/16 01:23 169 24 86/66 91 Nasal Cannula 3.0 08/02/16 01:00 146 33 120/76 08/02/16 00:01 94 Nasal Cannula 3.0 08/02/16 00:00 36.8 158 23 102/60 85 Nasal Cannula 3.0 08/01/16 23:00 148 24 92/62 96 Nasal Cannula 3.0 08/01/16 23:00 148 32 92/62 96 08/01/16 22:00 159 18 120/93 93 Nasal Cannula 3.0 08/01/16 21:00 36.8 157 22 92/57 92 Room Air 08/01/16 20:55 36.8 155 28 92/57 94 Room Air 08/01/16 20:40 37.0 156 28 96/53 95 08/01/16 19:52 161 28 99/58 97 Room Air Physical Exam General Appearance: no apparent distress Respiratory/Chest: lungs clear, normal breath sounds, no respiratory distress, no accessory muscle use Cardiovascular: no murmur, + tachycardia Extremities: normal inspection, no pedal edema Neurologic/Psychiatric: no motor/sensory deficits, alert, oriented x 3, + pertinent finding (demonstrates limited understanding of condition; ) Laboratory Results Last 24 Hours Test 08/01/16 21:00 08/01/16 21:22 08/01/16 21:23 08/01/16 21:34 Influenza Type A (RT-PCR) Neg for Influ A Influenza Type A Antigen Neg for Influ A Influenza Type B Antigen Neg for Influ B Influenza Type B (RT-PCR) Neg for Influ B Lactic Acid Level 1.6 mmol/L Bedside Glucose 119 mg/dl Blood Gas Sample Site R Radial Bedside Blood Gas pH (LAB) 7.44 Bedside Blood Gas pCO2 (LAB) 27 mmHg Bedside Blood Gas pO2 (LAB) 52 mmHg Bedside Blood Gas HCO3 (LAB) 19 meq/L Bedside Blood Gas Total CO2 19 mEq/l Bedside Blood Gas Base Excess (LAB) -6.0 meq/L Bedside Blood Gas O2 Saturation 89.0 % Zane Test Pass Oxygen Delivery Device Room Air Test 08/01/16 23:36 08/01/16 23:58 08/02/16 03:15 08/02/16 04:10 Sodium Level 132 mmol/L 131 mmol/L Potassium Level 3.9 mmol/L 3.9 mmol/L Chloride Level 100 mmol/L 98 mmol/L Carbon Dioxide Level 22 mmol/L 23 mmol/L Anion Gap 10.0 mmol/L 10.0 mmol/L Blood Urea Nitrogen 13 mg/dl 12 mg/dl Creatinine 1.00 mg/dl 1.10 mg/dl Est Creatinine Clear Calc Drug Dose 131.7 ml/min 119.7 ml/min Estimated GFR () 120.7 107.6 Estimated GFR (Non- 104.1 92.8 BUN/Creatinine Ratio 13.4 10.6 Random Glucose 120 mg/dl 108 mg/dl Calcium Level 7.7 mg/dl 7.6 mg/dl Albumin 2.8 gm/dl Lactic Acid Level 1.6 mmol/L Urine Color YELLOW Urine Appearance CLEAR Urine pH 6.0 Urine Specific [place] > 1.045 Urine Protein 1+ Urine Glucose (UA) NEG Urine Ketones 3+ Urine Occult Blood 2+ Urine Nitrite NEG Urine Bilirubin NEG Urine Urobilinogen NEG Urine Leukocyte Esterase NEG Urine WBC (Auto) 5-10 /hpf Urine RBC (Auto) 5-10 /hpf Urine Hyaline Casts (Auto) 1-5 /lpf Urine Epithelial Cells (Auto) >30 /lpf Urine Bacteria (Auto) NEG Urine Renal Epithelial Cells /lpf Urine Yeast (Auto) Urine Random Sodium 14 mEq/L Urine Opiates Screen NEG Urine Methadone, Qualitative NEG Urine Barbiturates NEG Urine Phencyclidine (PCP) Level NEG Ur Amphetamine/Methamphetamine NEG MDMA (Ecstasy) Screen NEG Urine Benzodiazepines Screen NEG Urine Cocaine Metabolite NEG Urine Marijuana (THC) NEG White Blood Count 11.08 K/uL Red Blood Count 4.77 M/uL Hemoglobin 13.7 g/dL Hematocrit 39.0 % Mean Corpuscular Volume 81.8 fL Mean Corpuscular Hemoglobin 28.7 pg Mean Corpuscular Hemoglobin Concent 35.1 g/dl Platelet Count 176 K/uL Mean Platelet Volume 9.0 fL Neutrophils (%) (Auto) 73.6 % Lymphocytes (%) (Auto) 13.8 % Monocytes (%) (Auto) 8.9 % Eosinophils (%) (Auto) 2.2 % Basophils (%) (Auto) 0.2 % Neutrophils # (Auto) 8.16 K/uL Lymphocytes # (Auto) 1.53 K/uL Monocytes # (Auto) 0.99 K/uL Eosinophils # (Auto) 0.24 K/uL Basophils # (Auto) 0.02 K/uL RDW Standard Deviation 41.1 fL RDW Coefficient of Variation 13.6 % Immature Granulocyte % (Auto) 1.3 % Immature Granulocyte # (Auto) 0.14 K/uL Phosphorus Level 2.3 mg/dl Magnesium Level 2.3 mg/dl Assessment and Plan This is a 26 year old male with PMH of paranoid schizophrenia, coming from the [facility], presents with tachycardia found to have ischemic cardiomyopathy Non ischemic Cardiomyopathy Severe LV systolic dysfunction patient presented with tachycardia only complaint is cough had echocardiogram, showing LVEF of 25-30% likely Clozaril related as per cardiology medications stopped (Clozaril and Abilify) started on b-floresita as per cardiology, though he may not be taking this Sinus Tachycardia HRs in the 140s-150s started on b-floresita as per cardiology, though patient not compliant this morning monitor in tele Paranoid Schizophrenia appreciate psych input use Ativan PRN stopped Clozaril + Abilify Disposition The plan for this patient is to try to get him closer to family in [place]. MERY is technically his brother who lives in [place], [place] - but he has made it clear that he does not want to be involved and wants his parents involved instead. After speaking with the patient, the patient has made it clear that he does not want his parents involved in his care. The question of mental capacity will have to be addressed. He had a 304 commitment at the [facility] prior to arrival, and if so, we must question if he has the ability to make his decisions. In my opinion, parents must be involved in the care of the patient. Will speak with patient's mother if patient is agreeable and possibly involve medical-legal team.
[2016-08-02] MEDS ORDERED: OLANZAPINE 10 MG/2.1 ML SDV IM STA (21:49)
[2016-08-02] MEDS ORDERED: LORAZEPAM 2 MG/ML 1 ML VIAL IV PRN (23:00)
[2016-08-02] MEDS ORDERED: LORAZEPAM INJ 1 MG in SYRINGE 0.5 ML IV PRN (23:15)
[2016-08-02] MEDS ORDERED: OLANZAPINE 10 MG/2.1 ML SDV IM ONE (23:15)
[2016-08-03] VITALS (15 sets, daily range): BP systolic 83–139; BP diastolic 43–87; PULSE 109–128; TEMP 36.3–36.8; O2SAT 92–100
[2016-08-03 05:22] LABS: BASO % 0.3 %; BASO ABS # 0.03 K/uL (0-0.2); COMPLETE YES; EOS % 1.3 %; HEMATOCRIT 37.3 % (42-52); IG% 2.1 %; LYMPH % 21.9 %; LYMPH ABS # 2.61 K/uL (1.2-3.4); MEAN CORPUSCULAR HEMOGLOBIN 28.8 pg (25-34); MEAN CORPUSCULAR HGB CONC 35.1 g/dl (32-36); MEAN PLATELET VOLUME 9.9 fL (7.4-10.4); MONO % 10.5 %; NEUT % 63.9 %; PLATELET COUNT 186 K/uL (130-400); RED BLOOD COUNT 4.55 M/uL (4.7-6.1); WHITE BLOOD COUNT 11.91 K/uL (4.8-10.8)
[2016-08-03 05:42] LABS: BUN/CREATININE RATIO 13.6 (10-20); CALCIUM 7.7 mg/dl (8.5-10.1); CREATININE 1.6 mg/dl (0.60-1.40); MAGNESIUM 2.9 mg/dl (1.8-2.4); PHOSPHORUS 2.8 mg/dl (2.5-4.9); POTASSIUM 4.2 mmol/L (3.5-5.1)
[2016-08-03] MEDS: METOPROLOL TARTRATE 25 MG TAB PO SCH ×4 (07:56→21:35)
[2016-08-03] MEDS: ENOXAPARIN 40 MG/0.4 ML SYR SQ SCH (07:56)
--- NOTE | 2016-08-03 09:25 | Psychiatric Progress Notes ---
Progress Note Date of Service Aug 03, 2016. Interval History 26 yo male transfer from the [facility] (where he was hospitalized since May on 304 for schizophrenia). 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 Has experienced significant tachy on medical floor. Chief Complaint "I have paperwork". Subjective Interim progress reviewed. Polo was placed on a 302 commitment on the medical floor last pm (302 will 08/07 2300) as he became more restless/ disorganized on evening shift. He removed his IV and pulled of his chest leads and O2. He received IM Zyprexa twice for his disorientation and restlessness. This am he remains more confused yesterday, spending time rifling through his 303 and medical papers. Clearly identifies brother as his surrogate decision maker. I reviewed his legal document and it doesn't include mental health POA. He perseverates on not going back to [facility] and the dates on his paperwork being inaccurate and is paranoid that I am somehow colluding with them. Today his sodium remains a bit low, glucose increased to 130 and lower BP due to combo of meds and possibly Zyprexa prns. He becomes quite irritable when I mention his father. [facility] has not yet forwarded his mental health discharge plan (appts). Review of Systems Psych: denies symptoms other than stated above Constitutional: denied Cardiovascular: denied GI: denied Neurologic: denied Remainder of 10 body systems also reviewed and denied other than noted above. Mental Status Exam During interview pt is: cooperative (superficially) Appearance: disheveled Eye contact is: poor Motor behavior is: no abnormal motor movements Speech: normal in rate, rhythm & volume Affect: blunted Mood is: other ("upset") Thought process: concrete Thought content: paranoid Suicidal thought are: denied Homicidal thoughts are: denied Hallucinations: denies auditory, denies visual Cognition: language grossly intact Intelligence estimated to be: below average Insight: limited Judgement: limited Summary of Past History today he is able to tell me that he did well on Risperdal during school but in deed it was discontinued for medication side effects outlined in consult. He was stable on Abilify for almost 2 years before he decided that he didn't need it any more. Impression 26 yo male with schizophrenia, represents that he was nearing discharge from [facility], 303 converted to 304 commitment when developed tachy. He believes Abilify was restarted in preparation for conversion to injectable. He has a fundamental understanding of his medical condition and has thus far been cooperative with treatment. He is decompensating off of antipsychotics. If medication is contributing factor, most likely Clozaril. He is now on 302 commitment to the medical floor. Plan 08/02/16--attempted to get copy of commitment from [facility], liaison has called several times and is actively checking with [facility] on how to manage 304 if traveling out of our community hospital seems like previously had some response to Abilify, recently restarted as injectable would be preferred agent when ultimately able to resume psych meds I do not feel comfortable restarting anything until his tachy is resolving lucikly he is not acutely agitated, if requires premed for transport would recommend Ativan he does have concrete understanding of his medical condition and is agreeable to treatment, doesn't want to return to [place] at this time which is somewhat related to his baseline paranoia. Dr. Buckley states that other facilities are being explored. his need for ongoing involuntary psychiatry care will need to be readdressed when medically cleared 08/03--status of commitment confirmed late yesterday afternoon, 302 completed last pm by medical service. He is hypotensive but less tachy today but glucose up following Zyprexa, may/may not be side effect. Regardless he is having periods of agitation and is more paranoid and disoriented today. It is necessary to resume Abilify at a lower dose to avoid further decline and he is agreeable to take this orally. He would be a good candidate for [facility]. Would need to petition 303 on Friday. Still awaiting documents from [facility] outlining his identified care providers/appts as may need to be rescheduled. Data Vital Signs Last 24 Hrs: Date Time Temp Pulse Resp B/P Pulse Ox O2 Delivery O2 Flow Rate FiO2 08/03/16 04:40 36.8 109 22 89/58 Nasal Cannula 3.0 08/03/16 04:39 93 Nasal Cannula 3.0 08/03/16 00:15 95 Nasal Cannula 3.0 08/02/16 23:00 37.4 125 23 Nasal Cannula 3.0 08/02/16 20:35 95 Nasal Cannula 3.0 08/02/16 20:01 132 32 98/65 Nasal Cannula 3.0 08/02/16 19:34 36.4 130 18 95/70 94 Nasal Cannula 3.0 08/02/16 16:33 95 Room Air 08/02/16 15:30 36.5 135 20 98/67 93 Nasal Cannula 3.0 08/02/16 12:00 95 Room Air 08/02/16 12:00 139 40 100/75 99 Room Air Meds Administered Last 24 Hrs: Meds Administered (Past 24Hrs) Medications (Trade) Dose Ordered Sig/Speedy Route Start Time Stop Time Status Last Admin Dose Admin Sodium Chloride (Nss 1000ml) 2,000 ml @ 999 mls/hr Q2H1M STAT IV 08/01/16 17:38 08/01/16 19:38 DC 08/01/16 17:44 999 MLS/HR Metoprolol Tartrate (Lopressor Tab) 25 mg QID PO 08/02/16 09:00 09/01/16 08:59 08/03/16 07:56 25 MG Metoprolol Tartrate 50 mg 50 mg STK-MED ONCE .ROUTE 08/01/16 19:45 08/01/16 19:46 DC 08/01/16 19:40 25 MG Calcium Gluconate/ Sodium Chloride (Calcium Gluconate 10%/Nss 50ml) 60 ml @ 240 mls/hr 2030 ONCE IV 08/01/16 20:30 08/01/16 20:44 DC 08/01/16 21:06 240 MLS/HR Lorazepam (Ativan Inj) 0.5 mg Q4H PRN IV 08/01/16 22:00 08/02/16 23:01 DC 08/02/16 21:24 0.5 MG Potassium Chloride (Klor-Con M10) 40 meq NOW STAT PO 08/01/16 21:49 08/01/16 21:51 DC 08/01/16 22:08 40 MEQ Albumin Human (Albumin 25%) 25 gm ONE ONCE IV 08/01/16 23:45 08/01/16 23:46 DC 08/01/16 23:56 25 GM Potassium Chloride (Klor-Con M10) 20 meq NOW STAT PO 08/02/16 01:15 08/02/16 01:24 DC 08/02/16 01:15 20 MEQ Metoprolol Tartrate (Lopressor Iv) 5 mg STK-MED ONCE .ROUTE 08/02/16 01:26 08/02/16 01:27 DC 08/02/16 01:26 5 MG Albumin Human (Albumin 25%) 25 gm ONE ONCE IV 08/02/16 01:30 08/02/16 01:50 DC 08/02/16 01:30 25 GM Albumin Human (Albumin 25%) 25 gm ONE ONCE IV 08/02/16 04:00 08/02/16 04:21 DC 08/02/16 04:00 25 GM Levalbuterol (Xopenex 1.25MG/ 0.5ML Neb) 1.25 mg 0405 ONCE INH 08/02/16 04:05 08/02/16 04:19 DC 08/02/16 04:27 1.25 MG Ipratropium [place] (Atrovent 0.02% 0.5MG/2.5ML Neb) 0.5 mg 0405 ONCE INH 08/02/16 04:05 08/02/16 04:19 DC 08/02/16 04:27 0.5 MG Enoxaparin Sodium (Lovenox Inj) 40 mg QAM SQ 08/03/16 09:00 09/02/16 08:59 08/03/16 07:56 40 MG Enoxaparin Sodium (Lovenox Inj) 40 mg 1150 ONCE SQ 08/02/16 11:50 08/02/16 12:13 DC 08/02/16 11:50 40 MG Olanzapine (Zyprexa Inj) 5 mg NOW STAT IM 08/02/16 21:49 08/02/16 21:54 DC 08/02/16 22:00 5 MG Olanzapine (Zyprexa Inj) 5 mg 2315 ONCE IM 08/02/16 23:15 08/02/16 23:16 DC 08/02/16 23:44 5 MG Lab Results Last 24 Hrs: Last 24 Hours Test 08/03/16 05:10 White Blood Count 11.91 K/uL Red Blood Count 4.55 M/uL Hemoglobin 13.1 g/dL Hematocrit 37.3 % Mean Corpuscular Volume 82.0 fL Mean Corpuscular Hemoglobin 28.8 pg Mean Corpuscular Hemoglobin Concent 35.1 g/dl Platelet Count 186 K/uL Mean Platelet Volume 9.9 fL Neutrophils (%) (Auto) 63.9 % Lymphocytes (%) (Auto) 21.9 % Monocytes (%) (Auto) 10.5 % Eosinophils (%) (Auto) 1.3 % Basophils (%) (Auto) 0.3 % Neutrophils # (Auto) 7.61 K/uL Lymphocytes # (Auto) 2.61 K/uL Monocytes # (Auto) 1.25 K/uL Eosinophils # (Auto) 0.16 K/uL Basophils # (Auto) 0.03 K/uL RDW Standard Deviation 42.2 fL RDW Coefficient of Variation 14.0 % Immature Granulocyte % (Auto) 2.1 % Immature Granulocyte # (Auto) 0.25 K/uL Sodium Level 133 mmol/L Potassium Level 4.2 mmol/L Chloride Level 100 mmol/L Carbon Dioxide Level 21 mmol/L Anion Gap 12.0 mmol/L Blood Urea Nitrogen 22 mg/dl Creatinine 1.60 mg/dl Est Creatinine Clear Calc Drug Dose 82.2 ml/min Estimated GFR () 68.4 Estimated GFR (Non- 59.0 BUN/Creatinine Ratio 13.6 Random Glucose 130 mg/dl Calcium Level 7.7 mg/dl Phosphorus Level 2.8 mg/dl Magnesium Level 2.9 mg/dl Chemistry Specimen Hemolysis
--- NOTE | 2016-08-03 10:54 | Progress Note ---
Subjective Date of Service: Aug 03, 2016. Subjective Pt evaluation today including: conversation w/ patient, physical exam, lab review, review of studies, review of inpatient medication list Saw/examined the patient in room 110 He is seated in bed today; tells me his cough is still there, but no shortness of breath or chest pain Paranoia, disorganized thoughts, anxiety seem to be present He said he wants to go home and does not want to go to a facility to care for his heart Has taken two doses of his metoprolol No other complaints at this time Problem List Medical Problems: (1) Cardiomyopathy Status: Acute (2) Electrolyte disturbance Status: Acute (3) Elevated troponin Status: Acute (4) Myocarditis Status: Acute Review of Systems Respiratory: + cough, No dyspnea on exertion, No shortness of breath, No sputum , No wheezing Cardiac: No chest pain, No edema, No palpitations Medications Current Inpatient Medications Medications (Trade) Dose Ordered Sig/Speedy Route Start Time Stop Time Status Last Admin Dose Admin Metoprolol Tartrate (Lopressor Tab) 25 mg QID PO 08/02/16 09:00 09/01/16 08:59 08/03/16 07:56 25 MG Acetaminophen (Tylenol Tab) 650 mg Q4H PRN PO 08/01/16 20:30 08/31/16 20:29 Ioversol (Optiray 320) 100 ml UD PRN IV 08/02/16 00:15 08/06/16 00:14 Enoxaparin Sodium (Lovenox Inj) 40 mg QAM SQ 08/03/16 09:00 09/02/16 08:59 08/03/16 07:56 40 MG Lorazepam 1 mg 1 mg Q4H PRN IV 08/02/16 23:00 09/01/16 22:59 Lorazepam/Syringe (Ativan Inj/ Syringe) 1 ml @ 1 mls/min Q4H PRN IV 08/02/16 23:15 09/01/16 23:14 Aripiprazole (Abilify Tab) 15 mg QAM PO 08/03/16 11:00 09/02/16 10:59 Objective Vital Signs Date Time Temp Pulse Resp B/P Pulse Ox O2 Delivery O2 Flow Rate FiO2 08/03/16 07:30 93 Nasal Cannula 3.0 08/03/16 07:30 36.4 115 20 97/71 96 Nasal Cannula 3.0 08/03/16 04:40 36.8 109 22 89/58 Nasal Cannula 3.0 08/03/16 04:39 93 Nasal Cannula 3.0 08/03/16 00:15 95 Nasal Cannula 3.0 08/02/16 23:00 37.4 125 23 Nasal Cannula 3.0 08/02/16 20:35 95 Nasal Cannula 3.0 08/02/16 20:01 132 32 98/65 Nasal Cannula 3.0 08/02/16 19:34 36.4 130 18 95/70 94 Nasal Cannula 3.0 08/02/16 16:33 95 Room Air 08/02/16 15:30 36.5 135 20 98/67 93 Nasal Cannula 3.0 08/02/16 12:00 95 Room Air 08/02/16 12:00 139 40 100/75 99 Room Air Physical Exam Respiratory/Chest: lungs clear, normal breath sounds, no respiratory distress, no accessory muscle use Cardiovascular: no edema, no murmur, + tachycardia Neurologic/Psychiatric: alert, + pertinent finding (disorganized thoughts, increasingly worried/anxious) Laboratory Results Last 24 Hours Test 08/03/16 05:10 White Blood Count 11.91 K/uL Red Blood Count 4.55 M/uL Hemoglobin 13.1 g/dL Hematocrit 37.3 % Mean Corpuscular Volume 82.0 fL Mean Corpuscular Hemoglobin 28.8 pg Mean Corpuscular Hemoglobin Concent 35.1 g/dl Platelet Count 186 K/uL Mean Platelet Volume 9.9 fL Neutrophils (%) (Auto) 63.9 % Lymphocytes (%) (Auto) 21.9 % Monocytes (%) (Auto) 10.5 % Eosinophils (%) (Auto) 1.3 % Basophils (%) (Auto) 0.3 % Neutrophils # (Auto) 7.61 K/uL Lymphocytes # (Auto) 2.61 K/uL Monocytes # (Auto) 1.25 K/uL Eosinophils # (Auto) 0.16 K/uL Basophils # (Auto) 0.03 K/uL RDW Standard Deviation 42.2 fL RDW Coefficient of Variation 14.0 % Immature Granulocyte % (Auto) 2.1 % Immature Granulocyte # (Auto) 0.25 K/uL Sodium Level 133 mmol/L Potassium Level 4.2 mmol/L Chloride Level 100 mmol/L Carbon Dioxide Level 21 mmol/L Anion Gap 12.0 mmol/L Blood Urea Nitrogen 22 mg/dl Creatinine 1.60 mg/dl Est Creatinine Clear Calc Drug Dose 82.2 ml/min Estimated GFR () 68.4 Estimated GFR (Non- 59.0 BUN/Creatinine Ratio 13.6 Random Glucose 130 mg/dl Calcium Level 7.7 mg/dl Phosphorus Level 2.8 mg/dl Magnesium Level 2.9 mg/dl Chemistry Specimen Hemolysis Assessment and Plan This is a 26 year old male with PMH of paranoid schizophrenia, coming from the [facility], presents with tachycardia found to have ischemic cardiomyopathy Non ischemic Cardiomyopathy Severe LV systolic dysfunction 08/03 appreciate cardiology input on this matter complicated, complex case - as per cardiology, best case scenario is to get him closer to family in [place] at a heart failure clinic with an inpatient mental health unit As per nursing, mother will be coming in to see the patient today - will speak with mother regarding plan continue metoprolol 08/02 patient presented with tachycardia only complaint is cough had echocardiogram, showing LVEF of 25-30% likely Clozaril related as per cardiology medications stopped (Clozaril and Abilify) started on b-floresita as per cardiology, though he may not be taking this Sinus Tachycardia 08/03 tachycardia improving to the 110s-120s 08/02 HRs in the 140s-150s started on b-floresita as per cardiology, though patient not compliant this morning monitor in tele Acute Kidney Injury creat up to 1.6 today CTA with contrast performed on 08/01 at night holding IVFs for now, will discuss with cardiology regarding fluids will monitor and if continues to worsen, may need nephrology input Paranoid Schizophrenia 08/03 appreciate psych input restarted Abilify received IM Zyprexa overnight 08/02 appreciate psych input use Ativan PRN stopped Clozaril + Abilify Disposition The plan for this patient is to try to get him closer to family in [place]. MERY is technically his brother who lives in [place], [place] - but he has made it clear that he does not want to be involved and wants his parents involved instead. After speaking with the patient, the patient has made it clear that he does not want his parents involved in his care. The question of mental capacity will have to be addressed. He had a 304 commitment at the [place] prior to arrival, and if so, we must question if he has the ability to make his decisions. In my opinion, parents must be involved in the care of the patient. Will speak with patient's mother if patient is agreeable and possibly involve medical-legal team. Discharge planning: acute transfer
[2016-08-03] MEDS: ARIPIprazole TAB 15 MG TAB PO SCH (12:42)
[2016-08-03] MEDS ORDERED: ABL/15 PO (13:52)
[2016-08-03] MEDS ORDERED: LPR25 PO (13:52)
--- NOTE | 2016-08-03 14:08 | Discharge Instructions ---
Discharge Instructions Date of Service Aug 03, 2016. Admission Reason for Admission: Tachycardia Discharge Discharge Diagnosis / Problem: Nonischemic Cardiomyopathy, LV dysfunction, tachycardia, MAHOGANY, schizophrenia Discharge Goals Goal(s): Decrease discomfort, Improve function, Diagnostic testing, Therapeutic intervention Activity Recommendations Activity Limitations: resume your previous activity . Instructions / Follow-Up Instructions / Follow-Up Patient to be transferred to [facility] - Dr. Cabrera, cardiology, accepted patient Should continue metoprolol as long as blood pressure stable Abilify started on low dose stop Clozaril Current Hospital Diet Patient's current hospital diet: Regular Diet Discharge Diet Recommended Diet: Regular Diet Pending Studies Studies pending at discharge: no Medical Emergencies . Who to Call and When: Medical Emergencies: If at any time you feel your situation is an emergency, please call 911 immediately. . Non-Emergent Contact Non-Emergency issues call your: Primary Care Provider . . "Provider Documentation" section prepared by Camille Buckley. VTE Core Measure Inpt VTE Proph given/why not?: Enoxaparin (Lovenox)SQ
--- NOTE | 2016-08-03 14:24 | Discharge Summary ---
Discharge Summary Date of Service Aug 03, 2016. Discharge Summary Admission Date: Aug 01, 2016 at 20:09 Discharge Date: Aug 03, 2016 Discharge Disposition: Acute care facility Principal Diagnosis: Non-ischemic cardiomyopathy (tachycardic cardiomyopathy) LV Systolic Dysfunction, EF of 25-30% Sinus Tachycardia, possibly medication induced Acute Kidney Injury, possible contrast-induced Paranoid Schizophrenia Medication Reconciliation New Medications: Metoprolol Tartrate (Lopressor) 25 Mg Tab 25 MG PO QID for 30 Days, #120 TAB Changed Medications: Aripiprazole (Abilify) 15 Mg Tab 1 TAB PO DAILY for 30 Days, #30 TAB (Changed from: Aripiprazole (Abilify) 30 Mg Tab 30 Mg PO DAILY) Discontinued Medications: Clozapine (Clozapine) 100 Mg Tab 275 MG PO QPM Admission Information HPI (per Admitting provider): 26 year old male with history of Paranoid Schizophrenia, currently residing at [facility], presenting with tachycardia. Patient was admitted to [facility] under 302 last May 2016 for Paranoid Schizophrenia. He is currently on Abilify and Clozapine. Patient was noted to be tachycardic in the 150s today and hence was sent to the ER for evaluation. I called the RN at [facility] and she states that since the early part of this month, patient's HR was in the 110-120's. She adds that around 1-2 weeks ago, they noticed that the patient was coughing but no fever/chills. At the ER, patient's HR was noted to be 150s, sinus tachycardia. Troponin elevated at 3.09. Echo done at the bedside showed an EF of 25-30%. On my exam, patient was sitting up in bed, comfortable, pleasant and cooperative. RN Yue at bedside. Patient denies having active chest pain, dyspnea, cough, palpitations, headache , dizziness, nausea, abdominal pain,changes with urination or bowel movement. He states that his mood is ok, although he feels "down" because he was supposed to go home tomorrow but that has to be delayed because of his heart condition. Patient reassured. Denies worsening depression. No other symptoms Physical Exam (per Admitting): General Appearance: WD/WN, no apparent distress Head: normocephalic, atraumatic Eyes: normal inspection, PERRL, sclerae normal ENT: normal ENT inspection, hearing grossly normal, pharynx normal Neck: supple, no adenopathy, thyroid normal, no JVD, trachea midline Respiratory/Chest: chest non-tender, lungs clear, normal breath sounds, no respiratory distress, no accessory muscle use Cardiovascular: no edema, no JVD, no murmur, + tachycardia Abdomen/GI: normal bowel sounds, non tender, soft Back: normal inspection, no CVA tenderness Extremities/Musculoskelatal: normal inspection, no calf tenderness, no pedal edema 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 Cabrera, cardiology, at [facility] - he has accepted the patient case management aware EKG, echo have been done, chart copied, CDs burned Dr. Bañuelos, cardiology, spoke with family - questions answered Stable for ground transfer via ambulance (ALS) Non ischemic Cardiomyopathy Severe LV systolic dysfunction 08/03 appreciate cardiology input on this matter complicated, complex case - as per cardiology, best case scenario is to get him closer to family in [place] at a heart failure clinic with an inpatient mental health unit As per nursing, mother will be coming in to see the patient today - will speak with mother regarding plan continue metoprolol 08/02 patient presented with tachycardia only complaint is cough had echocardiogram, showing LVEF of 25-30% likely Clozaril related as per cardiology medications stopped (Clozaril and Abilify) started on b-floresita as per cardiology, though he may not be taking this Sinus Tachycardia 08/03 tachycardia improving to the 110s-120s 08/02 HRs in the 140s-150s started on b-floresita as per cardiology, though patient not compliant this morning monitor in tele Acute Kidney Injury creat up to 1.6 today CTA with contrast performed on 08/01 at night holding IVFs for now, will discuss with cardiology regarding fluids will monitor and if continues to worsen, may need nephrology input Paranoid Schizophrenia 08/03 appreciate psych input restarted Abilify received IM Zyprexa overnight 08/02 appreciate psych input use Ativan PRN stopped Clozaril + Abilify Disposition The plan for this patient is to try to get him closer to family in [place]. MERY is technically his brother who lives in [place], [place] - but he has made it clear that he does not want to be involved and wants his parents involved instead. After speaking with the patient, the patient has made it clear that he does not want his parents involved in his care. The question of mental capacity will have to be addressed. He had a 304 commitment at the [facility] prior to arrival, and if so, we must question if he has the ability to make his decisions. In my opinion, parents must be involved in the care of the patient. Will speak with patient's mother if patient is agreeable and possibly involve medical-legal team. Discharge planning: acute transfer Total time spent on discharge = 35 minutes This includes examination of the patient, discharge planning, medication reconciliation, and communication with other providers. Discharge Instructions Patient to be transferred to [facility] - Dr. Cabrera, cardiology, accepted patient Should continue metoprolol as long as blood pressure stable Abilify started on low dose stop Clozaril
--- NOTE | 2016-08-03 14:31 | CARDIOLOGY PROGRESS NOTE ---
DATE: 08/03/2016 DATE: 08/03/2016. SUBJECTIVE: Mr. Magaña is a 26-year-old gentleman who is being seen in followup of presumed nonischemic cardiomyopathy. The patient prescribed beta floresita therapy yesterday. He has received 2 doses of metoprolol. His heart rate has improved from the 140s down to the 1-teens. He denies any chest discomfort or shortness of breath. No orthopnea, lower extremity edema, or paroxysmal nocturnal dyspnea. His mother and father are present at the bedside with questions regarding patient's study results and plan of care. The patient's treatment is complicated by underlying psychiatric disorder and need for antipsychotic medications. Currently, the patient is mildly paranoid. He is awake and alert, answers questions appropriately. He is concerned about his possible transfer to [place]. No other complaints at this time. REVIEW OF SYSTEMS: The pertinent positives noted above. A 4-system review including cardiovascular, pulmonary, gastroenterologic, and neurologic systems otherwise negative. MEDICATIONS: Reviewed via EMR. Please see list for details. LABORATORY DATA: White blood cell count 11.91, hemoglobin is 13.1, platelet count is 186. Sodium is 133, potassium is 4.2, chloride is 100, BUN is 22, creatinine is 1.60 today. His urine drug screen is negative. Influenza screen is negative. PHYSICAL EXAMINATION: VITAL SIGNS: Temperature is 36.3 degrees centigrade, pulse is 115 beats per minute and regular, respiratory rate is 22 breaths per minute, blood pressure is 96/61 and his SAO2 is 94% on 3 liters nasal cannula. GENERAL: NAD, paranoid, awake and alert. THROAT: His mucous membranes are moist. No scleral icterus. Conjunctivae pink. NECK: Supple. There is no JVD, no HJR, no carotid bruit. HEART: Regular and borderline tachycardic with a normal S1 and S2, no murmur, rub, or gallop appreciated. LUNGS: Clear without rales, rhonchi or wheeze. ABDOMEN: Soft, nontender. No rebound or guarding. EXTREMITIES: Warm and dry without clubbing, cyanosis, or edema. NEUROLOGIC EXAMINATION: Demonstrates no focal motor deficit, cranial nerves are grossly intact. FINAL IMPRESSION: 1. A 26-year-old male with newly recognized presumed nonischemic cardiomyopathy with severe left ventricular systolic dysfunction and a small circumferential pericardial effusion. The patient's heart rate has improved with 2 doses of beta-floresita therapy. He is scheduled to receive his third dose of metoprolol now. His blood pressure has remained stable. 2. Sinus tachycardia. 3. Borderline resting hypotension. 4. Elevated creatinine. 5. Chronic cough. 6. Schizophrenia. 7. Recent treatment with Clozaril. PLAN AND RECOMMENDATIONS: Recommend continuing metoprolol 25 mg every 6 hours as blood pressure tolerates. Consideration for addition of digoxin therapy in the near future and/or addition of MONICA inhibitor. This will be reassessed on a daily basis after transfer to [facility] in [place]. Consideration for cardiac MRI and/or cardiac CT during that hospitalization. Questions regarding patient's presumed nonischemic cardiomyopathy, future treatment options, as well as future imaging studies were discussed with the family at length. All questions were answered to their satisfaction. The plan is for transfer to [facility] today. I will discuss the patient's elevated creatinine with internal medicine to consider repeat lab testing. Thank you for allowing me to take part in the care of your patient.
[2016-08-03] MEDS: ARIPIprazole TAB 5 MG TAB PO ONE ×2 (16:45→16:46)
[2016-08-04] VITALS (13 sets, daily range): BP systolic 69–112; BP diastolic 38–68; PULSE 115–120; TEMP 36.3–37.4; O2SAT 90–96
[2016-08-04] MEDS: METOPROLOL TARTRATE 25 MG TAB PO SCH ×4 (08:36→21:36)
[2016-08-04] MEDS: ARIPIprazole TAB 15 MG TAB PO SCH (08:36)
[2016-08-04] MEDS: ENOXAPARIN 40 MG/0.4 ML SYR SQ SCH (08:38)
--- NOTE | 2016-08-04 11:50 | Progress Note ---
Subjective Date of Service: Aug 04, 2016. Subjective Pt evaluation today including: conversation w/ patient, physical exam, lab review, review of studies, review of inpatient medication list Saw/examined the patient in room 205 He is calm and cooperative during exam Persistently mentions that he wants to go home Problem List Medical Problems: (1) Cardiomyopathy Status: Acute (2) Electrolyte disturbance Status: Acute (3) Elevated troponin Status: Acute (4) Myocarditis Status: Acute Review of Systems Respiratory: No dyspnea on exertion, No shortness of breath Cardiac: No chest pain, No edema, No palpitations Abdomen: No pain Male : No dysuria, No urinary frequency Psychiatric: No anxiety, No depression symptoms Medications Current Inpatient Medications Medications (Trade) Dose Ordered Sig/Speedy Route Start Time Stop Time Status Last Admin Dose Admin Metoprolol Tartrate (Lopressor Tab) 25 mg QID PO 08/02/16 09:00 09/01/16 08:59 08/04/16 08:36 25 MG Acetaminophen (Tylenol Tab) 650 mg Q4H PRN PO 08/01/16 20:30 08/31/16 20:29 Ioversol (Optiray 320) 100 ml UD PRN IV 08/02/16 00:15 08/06/16 00:14 Enoxaparin Sodium (Lovenox Inj) 40 mg QAM SQ 08/03/16 09:00 09/02/16 08:59 08/03/16 07:56 40 MG Lorazepam 1 mg 1 mg Q4H PRN IV 08/02/16 23:00 09/01/16 22:59 Lorazepam/Syringe (Ativan Inj/ Syringe) 1 ml @ 1 mls/min Q4H PRN IV 08/02/16 23:15 09/01/16 23:14 Aripiprazole (Abilify Tab) 15 mg QAM PO 08/03/16 11:00 09/02/16 10:59 08/04/16 08:36 15 MG Objective Vital Signs Date Time Temp Pulse Resp B/P Pulse Ox O2 Delivery O2 Flow Rate FiO2 08/04/16 08:00 93 Room Air 08/04/16 07:29 36.6 120 20 89/63 90 Room Air 08/04/16 04:11 36.7 115 24 109/65 92 Room Air 08/04/16 04:00 92 Room Air 08/04/16 00:00 92 Room Air 08/03/16 22:50 36.6 117 22 93/43 92 Room Air 08/03/16 21:34 115 109/86 08/03/16 20:00 92 Room Air 08/03/16 19:20 36.3 116 19 107/77 92 Room Air 08/03/16 18:05 110/54 08/03/16 16:00 95 Room Air 08/03/16 15:34 36.5 112 20 83/66 94 Room Air 08/03/16 13:45 105/53 08/03/16 12:00 94 Room Air 08/03/16 11:16 36.3 115 22 97/61 94 Room Air Physical Exam General Appearance: no apparent distress Respiratory/Chest: lungs clear, normal breath sounds, no respiratory distress, no accessory muscle use Cardiovascular: regular rate, rhythm, no edema, no murmur Abdomen: normal bowel sounds, non tender, soft Extremities: normal inspection, no pedal edema Neurologic/Psychiatric: no motor/sensory deficits, alert, normal mood/affect Laboratory Results Last 24 Hours Test 08/04/16 04:44 Assessment and Plan This is a 26 year old male with PMH of paranoid schizophrenia, coming from the [facility], presents with tachycardia found to have ischemic cardiomyopathy Non ischemic Cardiomyopathy Severe LV systolic dysfunction 08/04 EF ~ 25-30% continue metoprolol QID dosing HRs in the low 100s, improving may need to add low dose digoxin, MONICA-I plan at this point is to transfer patient to [facility] We have an accepting physician; insurance should not be an issue; medical necessity to transfer - aware and working on the issue 08/03 appreciate cardiology input on this matter complicated, complex case - as per cardiology, best case scenario is to get him closer to family in [place] at a heart failure clinic with an inpatient mental health unit As per nursing, mother will be coming in to see the patient today - will speak with mother regarding plan continue metoprolol 08/02 patient presented with tachycardia only complaint is cough had echocardiogram, showing LVEF of 25-30% likely Clozaril related as per cardiology medications stopped (Clozaril and Abilify) started on b-floresita as per cardiology, though he may not be taking this Sinus Tachycardia 08/04 continue metoprolol 08/03 tachycardia improving to the 110s-120s 08/02 HRs in the 140s-150s started on b-floresita as per cardiology, though patient not compliant this morning monitor in tele Acute Kidney Injury 08/04 creat pending for today possibly contrast induced kidney injury? holding off on IVFs due to low EF; monitor creat 08/03 creat up to 1.6 today CTA with contrast performed on 08/01 at night holding IVFs for now, will discuss with cardiology regarding fluids will monitor and if continues to worsen, may need nephrology input Paranoid Schizophrenia 08/04 continue Abilify at the new lower dose No Clozaril IV Ativan PRN for acute agitation/psychosis, can use IM Zyprexa or IM Thorazine, will hold off as he is stable currently appreciate mental health team input 08/03 appreciate psych input restarted Abilify received IM Zyprexa overnight 08/02 appreciate psych input use Ativan PRN stopped Clozaril + Abilify Disposition Difficult situation as patient should be transferred to [place] closer to family due to medical making decisions. Patient currently cannot make medical decisions on his own due to his mental condition and paranoid schizophrenia. Spoke with parents regarding patient's care and they would also like patient transferred to [facility]. I called the [facility] transfer center and spoke with Dr. Cabrera, cardiology, who has accepted the patient. All discharge paperwork and transfer paperwork were done. Spoke with mental health unit regarding patient because he was getting agitated at the idea of going there, since he is 302'd, we can use restraints and medications to get him to a more appropriate facility. Received call last night regarding the case; medical case manager at [facility] are insisting that patient should not be transferred to their facility. In my opinion, there is no reason case management should get in the way of this transfer. It is a medical necessity for patient to be closer to family due to them making medical decisions from now on. Patient should be transferred due to medical needs to [place]. Will await case management input. Discharge planning: acute transfer
[2016-08-04 12:59] LABS: BASO % 0.1 %; BASO ABS # 0.01 K/uL (0-0.2); COMPLETE YES; EOS % 8.8 %; HEMATOCRIT 37.4 % (42-52); IG% 0.6 %; LYMPH % 19.9 %; LYMPH ABS # 1.92 K/uL (1.2-3.4); MEAN CELL VOLUME 80.3 fL (80-100); MEAN CORPUSCULAR HEMOGLOBIN 28.8 pg (25-34); MEAN CORPUSCULAR HGB CONC 35.8 g/dl (32-36); MEAN PLATELET VOLUME 9.6 fL (7.4-10.4); MONO % 11.2 %; NEUT % 59.4 %; PLATELET COUNT 265 K/uL (130-400); RED BLOOD COUNT 4.66 M/uL (4.7-6.1); WHITE BLOOD COUNT 9.64 K/uL (4.8-10.8)
[2016-08-04 13:28] LABS: BUN/CREATININE RATIO 13.3 (10-20); CALCIUM 7.9 mg/dl (8.5-10.1); MAGNESIUM 2.3 mg/dl (1.8-2.4); PHOSPHORUS 2.7 mg/dl (2.5-4.9); POTASSIUM 3.5 mmol/L (3.5-5.1)
[2016-08-05] VITALS (15 sets, daily range): BP systolic 66–110; BP diastolic 35–70; PULSE 75–123; TEMP 36.5–36.8; O2SAT 92–98
[2016-08-05 06:52] LABS: BUN/CREATININE RATIO 8.9 (10-20); CALCIUM 7.6 mg/dl (8.5-10.1); CREATININE 0.97 mg/dl (0.60-1.40); POTASSIUM 3.4 mmol/L (3.5-5.1)
[2016-08-05] MEDS: METOPROLOL TARTRATE 25 MG TAB PO SCH ×5 (08:32→22:58)
[2016-08-05] MEDS: ARIPIprazole TAB 15 MG TAB PO SCH (08:33)
[2016-08-05] MEDS: ENOXAPARIN 40 MG/0.4 ML SYR SQ SCH (08:33)
[2016-08-05] MEDS ORDERED: DIGOXIN 0.25 MG TAB PO ONE (09:30)
--- NOTE | 2016-08-05 09:49 | Psychiatric Progress Notes ---
Progress Note Date of Service Aug 05, 2016. Interval History 26 yo male transfer from the [facility] (where he was hospitalized since May on 304 for schizophrenia). 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 Has experienced significant tachy on medical floor. Chief Complaint "I'm ready for discharge". Subjective Patient was seen & assessed interval progress reviewed with liaison and Dr. Buckley. Had some restlessness in room this weekend documented when visiting with parents but no IMs since 08/02/16. He seems less paranoid than on Friday following restart of Abilify and denies restlessness currently. He lacks insight into his need for transfer/ongoing monitoring of heart issue. Review of Systems Psych: denies symptoms other than stated above Constitutional: denied Cardiovascular: denied GI: denied Neurologic: denied Remainder of 10 body systems also reviewed and denied other than noted above. Mental Status Exam During interview pt is: cooperative (superficially) Appearance: disheveled Eye contact is: poor Motor behavior is: no abnormal motor movements Speech: normal in rate, rhythm & volume Affect: blunted Mood is: other ("I don't understand") Thought process: concrete Thought content: other (perseveration) Suicidal thought are: denied Homicidal thoughts are: denied Hallucinations: denies auditory, denies visual Cognition: language grossly intact Intelligence estimated to be: below average Insight: limited Judgement: limited Summary of Past History he did well on Risperdal during school but in deed it was discontinued for medication side effects outlined in consult. He was stable on Abilify for almost 2 years before he decided that he didn't need it any more. Impression 26 yo male with schizophrenia, represents that he was nearing discharge from [facility], 303 converted to 304 commitment when developed tachy. He believes Abilify was restarted in preparation for conversion to injectable. He has a fundamental understanding of his medical condition and has thus far been cooperative with treatment. He is decompensating off of antipsychotics. If medication is contributing factor, most likely Clozaril. He is now on 302 commitment to the medical floor which expires 4/5 pm. Plan 08/02/16--attempted to get copy of commitment from [facility], liaison has called several times and is actively checking with [facility] MH/ID on how to manage 304 if traveling out of [facility] seems like previously had some response to Abilify, recently restarted as injectable would be preferred agent when ultimately able to resume psych meds I do not feel comfortable restarting anything until his tachy is resolving lucikly he is not acutely agitated, if requires premed for transport would recommend Ativan he does have concrete understanding of his medical condition and is agreeable to treatment, doesn't want to return to [place] at this time which is somewhat related to his baseline paranoia. Dr. Buckley states that other facilities are being explored. his need for ongoing involuntary psychiatry care will need to be readdressed when medically cleared 08/03--status of commitment confirmed late yesterday afternoon, 302 completed last pm by medical service. He is hypotensive but less tachy today but glucose up following Zyprexa, may/may not be side effect. Regardless he is having periods of agitation and is more paranoid and disoriented today. It is necessary to resume Abilify at a lower dose to avoid further decline and he is agreeable to take this orally. He would be a good candidate for [facility]. Would need to petition 303 on Friday or Friday. Still awaiting documents from [facility] outlining his identified care providers/appts as may need to be rescheduled. 08/05--less insight into condition due to thought disorganization due to schizophrenia but less agitated/restless/paranoid following restart of Abilify. Case discussed with Dr. Buckley as will need premedicated for any ambulance transport as lacks basic understanding of need. Reviewed that would recommend 2 mg Ativan and 5 mg Zyprexa, latter of which previously had good effect. Ideally would try to avoid injection--I'd offer Zyprexa zydis po first, Ativan could easily be given IV or PO. Reviewed risks of CPK elevation with Dr. Buckley if requires restraint in transport and that agitation precipitating worsening of tachy would put him at risk but per cardiology is medically necessary. If remains at [facility] will need to file 303 on 08/06 as will not be ready for discharge by time 302 expires. [facility] has excellent access to psychiatric consultation. Visit Code E&M Code: 95443 Data Vital Signs Last 24 Hrs: Date Time Temp Pulse Resp B/P Pulse Ox O2 Delivery O2 Flow Rate FiO2 08/05/16 09:29 90/48 4/3/17 09:28 92/50 08/05/16 08:30 36.6 101 16 85/52 94 Room Air 08/05/16 04:15 Room Air 08/05/16 03:27 70/38 08/05/16 03:19 36.8 114 17 66/43 92 Room Air 08/05/16 00:00 96 Room Air 08/04/16 23:35 37.4 116 18 88/59 93 74/49 08/04/16 20:30 96 Room Air 08/04/16 19:33 36.5 115 18 111/68 96 Room Air 08/04/16 17:23 115 112/56 08/04/16 16:00 96 Room Air 08/04/16 15:37 36.6 120 16 69/47 92 70/38 99/54 08/04/16 12:01 36.3 117 20 103/58 93 Room Air 08/04/16 12:00 95 Room Air Meds Administered Last 24 Hrs: Meds Administered (Past 24Hrs) Medications (Trade) Dose Ordered Sig/Speedy Route Start Time Stop Time Status Last Admin Dose Admin Aripiprazole (Abilify Tab) 15 mg QAM PO 08/03/16 11:00 09/02/16 10:59 08/05/16 08:33 15 MG Lab Results Last 24 Hrs: Last 24 Hours Test 08/04/16 12:48 08/05/16 05:34 08/05/16 09:32 White Blood Count 9.64 K/uL Red Blood Count 4.66 M/uL Hemoglobin 13.4 g/dL Hematocrit 37.4 % Mean Corpuscular Volume 80.3 fL Mean Corpuscular Hemoglobin 28.8 pg Mean Corpuscular Hemoglobin Concent 35.8 g/dl Platelet Count 265 K/uL Mean Platelet Volume 9.6 fL Neutrophils (%) (Auto) 59.4 % Lymphocytes (%) (Auto) 19.9 % Monocytes (%) (Auto) 11.2 % Eosinophils (%) (Auto) 8.8 % Basophils (%) (Auto) 0.1 % Neutrophils # (Auto) 5.72 K/uL Lymphocytes # (Auto) 1.92 K/uL Monocytes # (Auto) 1.08 K/uL Eosinophils # (Auto) 0.85 K/uL Basophils # (Auto) 0.01 K/uL RDW Standard Deviation 40.7 fL RDW Coefficient of Variation 14.0 % Immature Granulocyte % (Auto) 0.6 % Immature Granulocyte # (Auto) 0.06 K/uL Sodium Level 138 mmol/L 139 mmol/L Potassium Level 3.5 mmol/L 3.4 mmol/L Chloride Level 103 mmol/L 105 mmol/L Carbon Dioxide Level 24 mmol/L 24 mmol/L Anion Gap 11.0 mmol/L 10.0 mmol/L Blood Urea Nitrogen 13 mg/dl 9 mg/dl Creatinine 1.00 mg/dl 0.97 mg/dl Est Creatinine Clear Calc Drug Dose 131.3 ml/min 135.4 ml/min Estimated GFR () 120.7 125.2 Estimated GFR (Non- 104.1 108.1 BUN/Creatinine Ratio 13.3 8.9 Random Glucose 114 mg/dl 107 mg/dl Calcium Level 7.9 mg/dl 7.6 mg/dl Phosphorus Level 2.7 mg/dl Magnesium Level 2.3 mg/dl
--- NOTE | 2016-08-05 10:56 | CARDIOLOGY PROGRESS NOTE ---
DATE: 08/05/2016 HISTORY OF PRESENT ILLNESS: Mr. Magaña is a 26-year-old patient who is admitted through the emergency room with tachycardia. Subsequently, diagnosed with a cardiomyopathy (presumed nonischemic). Metoprolol was initiated, dose of 25 mg 4 times daily. Initially, heart rate was approximately 150-160 beats per minute and has improved over the past 48 hours with current average heart rate running between 100 and 115 beats per minute. He is asymptomatic from a cardiovascular perspective. He denies chest pain, shortness of breath, orthopnea, PND, or lower extremity edema. Intermittent episodes of hypotension recorded; however, the patient has been asymptomatic. Initially, his creatinine bumped to 1.6; however, has trended down to 0.97 today. His a.m. dose of metoprolol was initially held due to hypotension. The patient is planned for transfer to tertiary care center; however, his transfer and care has been delayed due to denial by insurance company. There is no family present at the bedside today. REVIEW OF SYSTEMS: The pertinent positive noted above. Comprehensive 10-system review is otherwise negative. MEDICATIONS: Reviewed via EMR. Please see list for details. Telemetry demonstrates sinus tachycardia. LABORATORY DATA: Sodium is 139, potassium is 3.4, chloride is 105, CO2 is 24, BUN is 9, creatinine is 0.97. Magnesium level is 2.3. White blood cell count is 9.6, his hemoglobin is 13.4, his platelet count is 265. PHYSICAL EXAMINATION: VITAL SIGNS: Temperature is 36.6 degrees centigrade, pulse 105 beats per minute and regular, respiratory rate is 16 breaths per minute, blood pressure currently 92/52, SAO2 is 94% on room air (blood pressure checked via manual cuff). GENERAL: NAD, he is awake, alert and oriented. THROAT: His mucous membranes are moist. No scleral icterus. Conjunctivae pink. NECK: Supple. There is no JVD or HJR. There is no carotid bruit. HEART: Regular and tachycardic with a normal S1 and S2. There is no murmur, rub, or gallop. LUNGS: Clear without rales, rhonchi or wheeze. ABDOMEN: Soft and nontender. There is no rebound or guarding. Normal bowel sounds. EXTREMITIES: Warm and dry. There is no clubbing, cyanosis or edema. NEUROLOGIC: Demonstrates no focal motor deficit. Cranial nerves are grossly intact. FINAL IMPRESSION: 1. A 26-year-old patient with newly diagnosed cardiomyopathy. He appears compensated with mild tachycardia on telemetry. His heart rate has significantly improved with the addition of beta-floresita therapy. 2. Borderline resting hypotension -- asymptomatic. 3. Transiently elevated creatinine likely related to IV contrast in addition to hypoperfusion in the setting of low cardiac output. The patient's creatinine has returned to normal range. 4. Chronic cough -- resolving. 5. Schizophrenia. 6. Recent treatment with Clozaril. PLAN AND RECOMMENDATIONS: The patient will continue metoprolol 25 mg every 6 hours. I will add digoxin 250 mcg daily. I also will assess an erythrocyte sedimentation rate today to evaluate underlying inflammation. Ultimately the patient would benefit for transfer to a tertiary care center for cardiac MRI and possibly cardiac CT. I would not add MONICA inhibitor due to borderline resting hypotension at this time, although, this will be an ongoing consideration as part of his evidence based heart failure therapy. We will continue to follow during hospitalization.
--- NOTE | 2016-08-05 11:16 | Progress Note ---
Subjective Date of Service: Aug 05, 2016. Subjective Pt evaluation today including: conversation w/ patient, physical exam, lab review, review of studies, conversation w/ building consultant, review of inpatient medication list Saw/examined the patient in room 205 He is doing good today Would seem agreeable to a transfer to [facility] if that is advisable No chest pain, shortness of breath, no edema Problem List Medical Problems: (1) Cardiomyopathy Status: Acute (2) Electrolyte disturbance Status: Acute (3) Elevated troponin Status: Acute (4) Myocarditis Status: Acute Review of Systems Respiratory: + cough (improving), No dyspnea on exertion, No shortness of breath, No sputum Cardiac: No chest pain, No edema, No palpitations Abdomen: No pain Heme: No abnormal bleeding/bruising Medications Current Inpatient Medications Medications (Trade) Dose Ordered Sig/Speedy Route Start Time Stop Time Status Last Admin Dose Admin Metoprolol Tartrate (Lopressor Tab) 25 mg QID PO 08/02/16 09:00 09/01/16 08:59 08/05/16 09:28 25 MG Acetaminophen (Tylenol Tab) 650 mg Q4H PRN PO 08/01/16 20:30 08/31/16 20:29 08/05/16 02:06 650 MG Ioversol (Optiray 320) 100 ml UD PRN IV 08/02/16 00:15 08/06/16 00:14 Enoxaparin Sodium (Lovenox Inj) 40 mg QAM SQ 08/03/16 09:00 09/02/16 08:59 08/03/16 07:56 40 MG Lorazepam 1 mg 1 mg Q4H PRN IV 08/02/16 23:00 09/01/16 22:59 Lorazepam/Syringe (Ativan Inj/ Syringe) 1 ml @ 1 mls/min Q4H PRN IV 08/02/16 23:15 09/01/16 23:14 Aripiprazole (Abilify Tab) 15 mg QAM PO 08/03/16 11:00 09/02/16 10:59 08/05/16 08:33 15 MG Digoxin (Lanoxin Tab) 0.25 mg DAILY PO 08/06/16 09:00 09/05/16 08:59 Objective Vital Signs Date Time Temp Pulse Resp B/P Pulse Ox O2 Delivery O2 Flow Rate FiO2 08/05/16 11:00 109 08/05/16 09:29 90/48 08/05/16 09:28 92/50 08/05/16 08:30 36.6 101 16 85/52 94 Room Air 08/05/16 08:00 Room Air 08/05/16 04:15 Room Air 08/05/16 03:27 70/38 08/05/16 03:19 36.8 114 17 66/43 92 Room Air 08/05/16 00:00 96 Room Air 08/04/16 23:35 37.4 116 18 88/59 93 74/49 08/04/16 20:30 96 Room Air 08/04/16 19:33 36.5 115 18 111/68 96 Room Air 08/04/16 17:23 115 112/56 08/04/16 16:00 96 Room Air 08/04/16 15:37 36.6 120 16 69/47 92 70/38 99/54 08/04/16 12:01 36.3 117 20 103/58 93 Room Air 08/04/16 12:00 95 Room Air Physical Exam General Appearance: no apparent distress Respiratory/Chest: lungs clear, normal breath sounds, no respiratory distress, no accessory muscle use Cardiovascular: regular rate, rhythm, no edema, no gallop, no JVD, no murmur Extremities: normal inspection, no pedal edema Neurologic/Psychiatric: + pertinent finding (he is calm, appropriate - oriented ; anxiety seems improved, paranoia improving) Laboratory Results Last 24 Hours Test 08/04/16 12:48 08/05/16 05:34 White Blood Count 9.64 K/uL Red Blood Count 4.66 M/uL Hemoglobin 13.4 g/dL Hematocrit 37.4 % Mean Corpuscular Volume 80.3 fL Mean Corpuscular Hemoglobin 28.8 pg Mean Corpuscular Hemoglobin Concent 35.8 g/dl Platelet Count 265 K/uL Mean Platelet Volume 9.6 fL Neutrophils (%) (Auto) 59.4 % Lymphocytes (%) (Auto) 19.9 % Monocytes (%) (Auto) 11.2 % Eosinophils (%) (Auto) 8.8 % Basophils (%) (Auto) 0.1 % Neutrophils # (Auto) 5.72 K/uL Lymphocytes # (Auto) 1.92 K/uL Monocytes # (Auto) 1.08 K/uL Eosinophils # (Auto) 0.85 K/uL Basophils # (Auto) 0.01 K/uL RDW Standard Deviation 40.7 fL RDW Coefficient of Variation 14.0 % Immature Granulocyte % (Auto) 0.6 % Immature Granulocyte # (Auto) 0.06 K/uL Sodium Level 138 mmol/L 139 mmol/L Potassium Level 3.5 mmol/L 3.4 mmol/L Chloride Level 103 mmol/L 105 mmol/L Carbon Dioxide Level 24 mmol/L 24 mmol/L Anion Gap 11.0 mmol/L 10.0 mmol/L Blood Urea Nitrogen 13 mg/dl 9 mg/dl Creatinine 1.00 mg/dl 0.97 mg/dl Est Creatinine Clear Calc Drug Dose 131.3 ml/min 135.4 ml/min Estimated GFR () 120.7 125.2 Estimated GFR (Non- 104.1 108.1 BUN/Creatinine Ratio 13.3 8.9 Random Glucose 114 mg/dl 107 mg/dl Calcium Level 7.9 mg/dl 7.6 mg/dl Phosphorus Level 2.7 mg/dl Magnesium Level 2.3 mg/dl Assessment and Plan This is a 26 year old male with PMH of paranoid schizophrenia, coming from the [facility], presents with tachycardia found to have ischemic cardiomyopathy Non ischemic Cardiomyopathy Severe LV systolic dysfunction 08/05 appreciate cardiology input digoxin added hold off on MONICA-I continue b-floresita 08/04 EF ~ 25-30% continue metoprolol QID dosing HRs in the low 100s, improving may need to add low dose digoxin, MONICA-I plan at this point is to transfer patient to [facility] We have an accepting physician; insurance should not be an issue; medical necessity to transfer - aware and working on the issue 08/03 appreciate cardiology input on this matter complicated, complex case - as per cardiology, best case scenario is to get him closer to family in [place] at a heart failure clinic with an inpatient mental health unit As per nursing, mother will be coming in to see the patient today - will speak with mother regarding plan continue metoprolol 08/02 patient presented with tachycardia only complaint is cough had echocardiogram, showing LVEF of 25-30% likely Clozaril related as per cardiology medications stopped (Clozaril and Abilify) started on b-floresita as per cardiology, though he may not be taking this Sinus Tachycardia 4/2 continue metoprolol 08/03 tachycardia improving to the 110s-120s 08/02 HRs in the 140s-150s started on b-floresita as per cardiology, though patient not compliant this morning monitor in tele Acute Kidney Injury 08/04 creat pending for today possibly contrast induced kidney injury? holding off on IVFs due to low EF; monitor creat 08/03 creat up to 1.6 today CTA with contrast performed on 08/01 at night holding IVFs for now, will discuss with cardiology regarding fluids will monitor and if continues to worsen, may need nephrology input Paranoid Schizophrenia 4/ continue Abilify at the new lower dose No Clozaril IV Ativan PRN for acute agitation/psychosis, can use IM Zyprexa or IM Thorazine, will hold off as he is stable currently appreciate mental health team input 08/03 appreciate psych input restarted Abilify received IM Zyprexa overnight 08/02 appreciate psych input use Ativan PRN stopped Clozaril + Abilify Disposition 4.3 Patient should be transferred to [facility] - they are refusing to take the patient which can hamper patient's medical management. 4/2 Difficult situation as patient should be transferred to [place] closer to family due to medical making decisions. Patient currently cannot make medical decisions on his own due to his mental condition and paranoid schizophrenia. Spoke with parents regarding patient's care and they would also like patient transferred to [facility]. I called the [facility] transfer center and spoke with Dr. Cabrera, cardiology, who has accepted the patient. All discharge paperwork and transfer paperwork were done. Spoke with mental health unit regarding patient because he was getting agitated at the idea of going there, since he is 302'd, we can use restraints and medications to get him to a more appropriate facility. Received call last night regarding the case; case loader operator at [facility] are insisting that patient should not be transferred to their facility. In my opinion, there is no reason case management should get in the way of this transfer. It is a medical necessity for patient to be closer to family due to them making medical decisions from now on. Patient should be transferred due to medical needs to [place]. Will await case management input. Discharge planning: acute transfer
[2016-08-06] VITALS (12 sets, daily range): BP systolic 62–112; BP diastolic 38–86; PULSE 84–118; TEMP 36.5–37; O2SAT 92–99
[2016-08-06] MEDS ORDERED: POTASSIUM CHLORIDE 10 MEQ TABCR PO STA (00:13)
[2016-08-06] MEDS ORDERED: ALBUMIN HUMAN 25% 12.5 GM/50 ML VIAL IV STA (00:18)
[2016-08-06 05:44] LABS: HEMATOCRIT 39.8 % (42-52); MEAN CELL VOLUME 81.6 fL (80-100); MEAN CORPUSCULAR HEMOGLOBIN 28.3 pg (25-34); MEAN CORPUSCULAR HGB CONC 34.7 g/dl (32-36); PLATELET COUNT 395 K/uL (130-400); RED BLOOD COUNT 4.88 M/uL (4.7-6.1); WHITE BLOOD COUNT 9.49 K/uL (4.8-10.8)
[2016-08-06 06:10] LABS: BUN/CREATININE RATIO 7.9 (10-20); CALCIUM 7.9 mg/dl (8.5-10.1); CREATININE 0.86 mg/dl (0.60-1.40); POTASSIUM 3.6 mmol/L (3.5-5.1)
[2016-08-06] MEDS: DIGOXIN 0.25 MG TAB PO SCH (08:35)
[2016-08-06] MEDS: ARIPIprazole TAB 15 MG TAB PO SCH (08:35)
[2016-08-06] MEDS: ENOXAPARIN 40 MG/0.4 ML SYR SQ SCH (08:36)
--- NOTE | 2016-08-06 08:53 | Progress Note ---
Subjective Date of Service: Aug 06, 2016. Subjective Pt evaluation today including: conversation w/ patient, physical exam, lab review, review of studies, review of inpatient medication list Saw/examined the patient in room 205 He's doing okay; calm and not anxious/agitated today Eager for a plan of care set to be set up Denies chest pain/shortness of breath - no dizziness Problem List Medical Problems: (1) Cardiomyopathy Status: Acute (2) Electrolyte disturbance Status: Acute (3) Elevated troponin Status: Acute (4) Myocarditis Status: Acute Review of Systems Respiratory: No cough, No shortness of breath, No sputum Cardiac: No chest pain, No edema, No palpitations Abdomen: No diarrhea, No nausea, No pain, No vomiting Medications Current Inpatient Medications Medications (Trade) Dose Ordered Sig/Speedy Route Start Time Stop Time Status Last Admin Dose Admin Acetaminophen (Tylenol Tab) 650 mg Q4H PRN PO 08/01/16 20:30 08/31/16 20:29 08/05/16 02:06 650 MG Enoxaparin Sodium (Lovenox Inj) 40 mg QAM SQ 08/03/16 09:00 09/02/16 08:59 08/06/16 08:36 40 MG Lorazepam 1 mg 1 mg Q4H PRN IV 08/02/16 23:00 09/01/16 22:59 Lorazepam/Syringe (Ativan Inj/ Syringe) 1 ml @ 1 mls/min Q4H PRN IV 08/02/16 23:15 09/01/16 23:14 Aripiprazole (Abilify Tab) 15 mg QAM PO 08/03/16 11:00 09/02/16 10:59 08/06/16 08:35 15 MG Digoxin (Lanoxin Tab) 0.25 mg DAILY PO 08/06/16 09:00 09/05/16 08:59 08/06/16 08:35 0.25 MG Metoprolol Succinate (Toprol Xl Tab) 50 mg BID PO 08/06/16 08:30 09/05/16 08:29 Objective Vital Signs Date Time Temp Pulse Resp B/P Pulse Ox O2 Delivery O2 Flow Rate FiO2 08/06/16 08:35 95 08/06/16 07:02 37.0 108 18 85/45 92 Room Air 08/06/16 04:00 Room Air 08/06/16 03:12 37.0 116 18 81/47 94 Room Air 08/06/16 00:59 95/74 08/06/16 00:50 108/63 08/06/16 00:40 36.8 118 18 97/72 92 Room Air 08/06/16 00:06 62/38 08/05/16 23:59 Room Air 08/05/16 23:56 36.7 105 18 66/35 98 Room Air 08/05/16 22:07 85/50 08/05/16 22:00 123 87/49 08/05/16 20:00 96 Room Air 3.0 08/05/16 20:00 96 Room Air 08/05/16 19:03 36.5 109 17 102/62 94 Room Air 08/05/16 16:08 75 110/66 08/05/16 16:00 96 Room Air 08/05/16 15:12 36.7 112 18 87/58 96 Room Air 08/05/16 13:06 106 16 94/70 94 08/05/16 12:00 Room Air 08/05/16 11:00 109 08/05/16 09:29 90/48 08/05/16 09:28 92/50 Physical Exam General Appearance: no apparent distress Respiratory/Chest: chest non-tender, lungs clear, normal breath sounds, no respiratory distress, no accessory muscle use Cardiovascular: regular rate, rhythm, no edema, no gallop, no JVD, no murmur Extremities: normal inspection, no pedal edema Laboratory Results Last 24 Hours Test 08/06/16 05:14 White Blood Count 9.49 K/uL Red Blood Count 4.88 M/uL Hemoglobin 13.8 g/dL Hematocrit 39.8 % Mean Corpuscular Volume 81.6 fL Mean Corpuscular Hemoglobin 28.3 pg Mean Corpuscular Hemoglobin Concent 34.7 g/dl RDW Standard Deviation 42.2 fL RDW Coefficient of Variation 14.1 % Platelet Count 395 K/uL Mean Platelet Volume 9.0 fL Sodium Level 138 mmol/L Potassium Level 3.6 mmol/L Chloride Level 104 mmol/L Carbon Dioxide Level 27 mmol/L Anion Gap 7.0 mmol/L Blood Urea Nitrogen 7 mg/dl Creatinine 0.86 mg/dl Est Creatinine Clear Calc Drug Dose 152.7 ml/min Estimated GFR () 139.7 Estimated GFR (Non- 120.5 BUN/Creatinine Ratio 7.9 Random Glucose 106 mg/dl Calcium Level 7.9 mg/dl Assessment and Plan This is a 26 year old male with PMH of paranoid schizophrenia, coming from the [facility], presents with tachycardia found to have ischemic cardiomyopathy Non ischemic Cardiomyopathy Severe LV systolic dysfunction 08/06 he is hypotensive overnight metoprolol tartrate changed to succinate BID dosing as per cardiology may get a repeat echo? if okay with cardiology plan regarding [facility] is canceled as per case management over there will speak with cardiology about other facilities for transfer continue Digoxin 08/05 appreciate cardiology input digoxin added hold off on MONICA-I continue b-floresita 08/04 EF ~ 25-30% continue metoprolol QID dosing HRs in the low 100s, improving may need to add low dose digoxin, MONICA-I plan at this point is to transfer patient to [facility] We have an accepting physician; insurance should not be an issue; medical necessity to transfer - CM aware and working on the issue 08/03 appreciate cardiology input on this matter complicated, complex case - as per cardiology, best case scenario is to get him closer to family in [place] at a heart failure clinic with an inpatient mental health unit As per nursing, mother will be coming in to see the patient today - will speak with mother regarding plan continue metoprolol 08/02 patient presented with tachycardia only complaint is cough had echocardiogram, showing LVEF of 25-30% likely Clozaril related as per cardiology medications stopped (Clozaril and Abilify) started on b-floresita as per cardiology, though he may not be taking this Sinus Tachycardia 4/4 HRs in the 110s today, slightly higher than yesterday due to skipped b-floresita doses from his hypotension Toprol 50mg BID 08/04 continue metoprolol 08/03 tachycardia improving to the 110s-120s 08/02 HRs in the 140s-150s started on b-floresita as per cardiology, though patient not compliant this morning monitor in tele Acute Kidney Injury - resolved 08/06 resolved 08/04 creat pending for today possibly contrast induced kidney injury? holding off on IVFs due to low EF; monitor creat 08/03 creat up to 1.6 today CTA with contrast performed on 08/01 at night holding IVFs for now, will discuss with cardiology regarding fluids will monitor and if continues to worsen, may need nephrology input Paranoid Schizophrenia / continue Abilify at the new lower dose No Clozaril IV Ativan PRN for acute agitation/psychosis, can use IM Zyprexa or IM Thorazine, will hold off as he is stable currently appreciate mental health team input 08/03 appreciate psych input restarted Abilify received IM Zyprexa overnight 08/02 appreciate psych input use Ativan PRN stopped Clozaril + Abilify Disposition 08/05 Patient should be transferred to [facility] - they are refusing to take the patient which can hamper patient's medical management. 08/04 Difficult situation as patient should be transferred to [place] closer to family due to medical making decisions. Patient currently cannot make medical decisions on his own due to his mental condition and paranoid schizophrenia. Spoke with parents regarding patient's care and they would also like patient transferred to [facility]. I called the [facility] transfer center and spoke with Dr. Cabrera, cardiology, who has accepted the patient. All discharge paperwork and transfer paperwork were done. Spoke with mental health unit regarding patient because he was getting agitated at the idea of going there, since he is 302'd, we can use restraints and medications to get him to a more appropriate facility. Received call last night regarding the case; case management assistant at [facility] are insisting that patient should not be transferred to their facility. In my opinion, there is no reason case management should get in the way of this transfer. It is a medical necessity for patient to be closer to family due to them making medical decisions from now on. Patient should be transferred due to medical needs to [place]. Will await case management input. Discharge planning: acute transfer
[2016-08-06] MEDS: METOPROLOL SUCC 50MG EXT REL TAB PO SCH ×3 (09:03→20:28)
--- NOTE | 2016-08-06 09:34 | Cardiology Follow-Up ---
Subjective General Date of Service: Aug 06, 2016. Chief Complaint: follow up Pt evaluation today including: conversation w/ patient, conversation w/ family , physical exam, chart review, lab review, review of studies, review of inpatient medication list History of Present Illness The patient is a 26 year old male seen in follow up. Patient feels well from a cardiovascular perspective. Poor insight into cardiac problems. Denies CP or SOB. No palpitations. Heart rate 100 -110 BPM on telemetry. Offers no cardiac complaints. Allergies Coded Allergies: Cashew (Unverified Allergy, Unknown, unknown, 07/20/16) Haloperidol (Verified Allergy, Unknown, tongue swelling, 07/20/16) Social History Smoking Status: Never Smoker Problem List Medical Problems: (1) Cardiomyopathy Status: Acute (2) Electrolyte disturbance Status: Acute (3) Elevated troponin Status: Acute (4) Myocarditis Status: Acute Review of Systems Respiratory: No cough, No dyspnea at rest, No hemoptysis, No shortness of breath, No wheezing Cardiac: No PND, No chest pain, No claudication, No edema, No orthopnea, No palpitations Physical Exam Vital Signs Last Vital Signs Documentation Date Time Temp Pulse Resp B/P Pulse Ox O2 Delivery O2 Flow Rate FiO2 08/06/16 08:35 95 08/06/16 07:02 37.0 18 85/45 92 Room Air 08/05/16 20:00 3.0 Physical Exam Constitutional: General Apperance: well-nourished Level of Distress: NAD Ambulation: ambulating normally Head: normocephalic, atraumatic ENMT: normal ENT inspection Neck: supple Lungs: Auscultation: breath sounds normal, no wheezing, no rales/crackles, no rhonchi Cardiovascular: Heart Auscultation: RRR, normal S1, normal S2, no murmurs, tachycardia Peripheral Pulses: Radial Pulse: normal on the left, normal on the right Abdomen: Bowel Sounds: normal Inspection & Palpation: soft, non-distended, no tenderness, guarding & rebound Extremities: no edema, no clubbing, no ulcers Neurologic: Gait & Station: pertinent finding (moves all 4 extremities, follows commands. ) Cranial Nerves: grossly intact Assessment and Plan Assessment and Plan FINAL IMPRESSION: 1. A 26-year-old patient with newly diagnosed cardiomyopathy. Possibly tachycardia induced, medication related (clozaril), post infectious, and/or inflammatory process not excluded. -compensated with mild tachycardia on telemetry. -heart rate has improved with beta-floresita and digoxin. 2. Borderline resting hypotension -- asymptomatic. 3. Transiently elevated creatinine likely related to IV contrast in addition to hypoperfusion in the setting of low cardiac output. The patient's creatinine has returned to normal range. 4. Schizophrenia. 5. Recent treatment with Clozaril. PLAN AND RECOMMENDATIONS: Discontinue metoprolol tatrate. Toprol XL 50mg BID ordered. Continue digoxin 250 mcg daily. Recommend transfer to a tertiary care center for cardiac MRI and possibly cardiac CT. Further secondary work up today with EMIL, RF, lyme screen, and serum ferritin level. Repeat ECG. Will not add MONICA inhibitor due to borderline resting hypotension at this time, although, this will be an ongoing consideration as part of his evidence based heart failure therapy. I will continue to follow during hospitalization. Laboratory Results Last 24 Hours Test 08/06/16 05:14 White Blood Count 9.49 K/uL Red Blood Count 4.88 M/uL Hemoglobin 13.8 g/dL Hematocrit 39.8 % Mean Corpuscular Volume 81.6 fL Mean Corpuscular Hemoglobin 28.3 pg Mean Corpuscular Hemoglobin Concent 34.7 g/dl RDW Standard Deviation 42.2 fL RDW Coefficient of Variation 14.1 % Platelet Count 395 K/uL Mean Platelet Volume 9.0 fL Sodium Level 138 mmol/L Potassium Level 3.6 mmol/L Chloride Level 104 mmol/L Carbon Dioxide Level 27 mmol/L Anion Gap 7.0 mmol/L Blood Urea Nitrogen 7 mg/dl Creatinine 0.86 mg/dl Est Creatinine Clear Calc Drug Dose 152.7 ml/min Estimated GFR () 139.7 Estimated GFR (Non- 120.5 BUN/Creatinine Ratio 7.9 Random Glucose 106 mg/dl Calcium Level 7.9 mg/dl
--- NOTE | 2016-08-06 10:07 | Psychiatric Progress Notes ---
Progress Note Date of Service Aug 06, 2016. Interval History 26 yo male [place] [facility] he was hospitalized since May. on 304 for schizophrenia). Admit with cardiomyopathy, and cardiology is recommending transfer to a tertiary care facility for further workup. He is on a 302 commitment after he asked to leave and was medically unstable with significant tachycardia. Chief Complaint "Why are you asking me all these stupid questions?" Subjective Patient was seen & assessed, records reviewed, and case discussed with Dr. Bañuelos of cardiology, Dr. Buckley, case management, and Dr. Miranda who has been seeing him on the psychiatric consult service. He has been in our facility for 5 days and is being treated for cardiomyopathy, cardiac, and hypotension. Dr. Miranda saw him on admission, and restarted aripiprazole, and when she followed up with him yesterday, his paranoia had improved. He has demonstrated poor insight into the concerns about his cardiac condition and the need for transfer to a tertiary care center for additional testing as well as the need for ongoing monitoring of his cardiac issues. He has been calm and cooperative with care here, and the primary team is in the process of referring him to Hospital the can do a cardiac MRI. Today I met with the patient, the psychiatric nurse liaison, and we were then joined by Dr. Bañuelos. The patient was irritable and only partially cooperative with the interview, stating "I just want to get out of here and get this done." He states that his thoughts are "completely fine," and denies hallucinations and paranoia. He will not answer when asked if he thinks he has a mental illness, stating "I'd rather not answer that, you're making me answer stupid questions." He repeatedly states that he does not want to go back [place] [facility], as he was already there for extended treatment, and just wants to go home and be with his family. Although he was somewhat resistant to answering questions, he was able to state that he understands his doctors want him to be transferred to another facility to get an MRI, and says that he trusts his doctors' decisions about his care, stating he would "obviously" go to another facility to have further testing, but then moments later states that he just wants to go home. I was present for Dr. Kopinski's discussion with the patient that he is not medically stable for discharge, review of the treatment recommendations and the risks of refusing treatment, including decompensated heart failure and arrhythmia, and the need to follow-up after discharge with frequent appointments for cardiac monitoring. The patient was not able to reiterate these risks, understand the situation or its potential consequences, vacillated in his willingness to follow the treatment recommendations, and could not demonstrate ability to manipulate information in a rational manner or describe his decision-making process. Review of Systems Denies anxiety, pain, shortness of breath, dizziness. Mental Status Exam During interview pt is: cooperative (partially-answers questions in an irritable manner), guarded Appearance: disheveled, other (overweight, dressed in shorts and a T-shirt) Eye contact is: poor Motor behavior is: no abnormal motor movements (seated in bed) Speech: normal in rate, rhythm & volume Affect: blunted, irritable Mood is: other ("I don't understand") Thought process: concrete Thought content: other (perseveration) Suicidal thought are: denied Homicidal thoughts are: denied Hallucinations: denies auditory, denies visual Cognition: language grossly intact Intelligence estimated to be: below average Insight: limited Judgement: limited Summary of Past History He did well on Risperdal during school but it was discontinued for medication side effects outlined in initial consult. He was stable on Abilify for almost 2 years before he decided that he didn't need it any more. Impression 26 yo male with schizophrenia, transferred [place] [facility] where he had been admitted involuntarily since 05/25/2016 for schizophrenia. He believes Abilify was restarted in preparation for conversion to injectable. He has a fundamental understanding of his medical condition and has thus far been cooperative with treatment. He currently lacks capacity to refuse the recommended treatment regarding his cardiac disease, but states willingness to go to a tertiary care center for further testing as recommended. He is now on 302 commitment to the medical floor which expires tomorrow evening, and if he is still in our facility tomorrow, we will hold a commitment hearing to ensure that he stays here until he can receive the recommended medical care. He should be transferred to the appropriate tertiary care facility as soon as possible, and his mental illness is not a contraindication to receiving the appropriate medical treatment. Plan 08/02/16--attempted to get copy of commitment [place] [facility], liaison has called several times and is actively checking with [facility] MH/ID on how to manage 304 if traveling out of [facility] seems like previously had some response to Abilify, recently restarted as injectable would be preferred agent when ultimately able to resume psych meds I do not feel comfortable restarting anything until his tachy is resolving lucikly he is not acutely agitated, if requires premed for transport would recommend Ativan he does have concrete understanding of his medical condition and is agreeable to treatment, doesn't want to return to [place] at this time which is somewhat related to his baseline paranoia. Dr. Buckley states that other facilities are being explored. his need for ongoing involuntary psychiatry care will need to be readdressed when medically cleared 08/03--status of commitment confirmed late yesterday afternoon, 302 completed last pm by medical service. He is hypotensive but less tachy today but glucose up following Zyprexa, may/may not be side effect. Regardless he is having periods of agitation and is more paranoid and disoriented today. It is necessary to resume Abilify at a lower dose to avoid further decline and he is agreeable to take this orally. He would be a good candidate for [facility]. Would need to petition 303 on Friday or Friday. Still awaiting documents from [facility] outlining his identified care providers/appts as may need to be rescheduled. 08/05--less insight into condition due to thought disorganization due to schizophrenia but less agitated/restless/paranoid following restart of Abilify. Case discussed with Dr. Buckley as will need premedicated for any ambulance transport as lacks basic understanding of need. Reviewed that would recommend 2 mg Ativan and 5 mg Zyprexa, latter of which previously had good effect. Ideally would try to avoid injection--I'd offer Zyprexa zydis po first, Ativan could easily be given IV or PO. Reviewed risks of CPK elevation with Dr. Buckley if requires restraint in transport and that agitation precipitating worsening of tachy would put him at risk but per cardiology is medically necessary. If remains at [facility] will need to file 303 on 08/06 as will not be ready for discharge by time [address] [facility] has excellent access to psychiatric consultation. Visit Code E&M Code: 51698 Data Vital Signs Last 24 Hrs: Date Time Temp Pulse Resp B/P Pulse Ox O2 Delivery O2 Flow Rate FiO2 08/06/16 08:35 95 08/06/16 08:00 Room Air 08/06/16 07:02 37.0 108 18 85/45 92 Room Air 08/06/16 04:00 Room Air 08/06/16 03:12 37.0 116 18 81/47 94 Room Air 08/06/16 00:59 95/74 08/06/16 00:50 108/63 08/06/16 00:40 36.8 118 18 97/72 92 Room Air 08/06/16 00:06 62/38 08/05/16 23:59 Room Air 08/05/16 23:56 36.7 105 18 66/35 98 Room Air 08/05/16 22:07 85/50 08/05/16 22:00 123 87/49 08/05/16 20:00 96 Room Air 3.0 08/05/16 20:00 96 Room Air 08/05/16 19:03 36.5 109 17 102/62 94 Room Air 08/05/16 16:08 75 110/66 08/05/16 16:00 96 Room Air 08/05/16 15:12 36.7 112 18 87/58 96 Room Air 08/05/16 13:06 106 16 94/70 94 08/05/16 12:00 Room Air 08/05/16 11:00 109 Meds Administered Last 24 Hrs: Meds Administered (Past 24Hrs) Medications (Trade) Dose Ordered Sig/Speedy Route Start Time Stop Time Status Last Admin Dose Admin Digoxin (Lanoxin Tab) 0.25 mg NOW ONCE PO 08/05/16 09:30 08/05/16 09:47 DC 08/05/16 11:00 0.25 MG Digoxin (Lanoxin Tab) 0.25 mg DAILY PO 08/06/16 09:00 09/05/16 08:59 08/06/16 08:35 0.25 MG Potassium Chloride (Klor-Con M10) 40 meq NOW STAT PO 08/06/16 00:13 08/06/16 00:19 DC 08/06/16 00:32 40 MEQ Albumin Human (Albumin 25%) 25 gm NOW STAT IV 08/06/16 00:18 08/06/16 07:29 DC 08/06/16 00:33 25 GM Metoprolol Succinate (Toprol Xl Tab) 50 mg BID PO 08/06/16 08:30 09/05/16 08:29 08/06/16 09:04 50 MG Lab Results Last 24 Hrs: Last 24 Hours Test 08/06/16 05:14 08/06/16 09:39 White Blood Count 9.49 K/uL Red Blood Count 4.88 M/uL Hemoglobin 13.8 g/dL Hematocrit 39.8 % Mean Corpuscular Volume 81.6 fL Mean Corpuscular Hemoglobin 28.3 pg Mean Corpuscular Hemoglobin Concent 34.7 g/dl RDW Standard Deviation 42.2 fL RDW Coefficient of Variation 14.1 % Platelet Count 395 K/uL Mean Platelet Volume 9.0 fL Sodium Level 138 mmol/L Potassium Level 3.6 mmol/L Chloride Level 104 mmol/L Carbon Dioxide Level 27 mmol/L Anion Gap 7.0 mmol/L Blood Urea Nitrogen 7 mg/dl Creatinine 0.86 mg/dl Est Creatinine Clear Calc Drug Dose 152.7 ml/min Estimated GFR () 139.7 Estimated GFR (Non- 120.5 BUN/Creatinine Ratio 7.9 Random Glucose 106 mg/dl Calcium Level 7.9 mg/dl
[2016-08-06 11:04] LABS: FERRITIN 345.2 ng/ml (8.0-388.0); RHEUMATOID FACTOR < 10.0 U/mL (0-15)
[2016-08-06 12:31] LABS: LYME DISEASE AB IGG NEG (NEG)
[2016-08-06 12:47] LABS: LYME DISEASE AB IGM NEG (NEG)
[2016-08-07] VITALS (8 sets, daily range): BP systolic 92–110; BP diastolic 52–68; PULSE 88–106; TEMP 36.5–36.8; O2SAT 92–97
[2016-08-07 05:24] LABS: HEMATOCRIT 39.5 % (42-52); MEAN CELL VOLUME 81.6 fL (80-100); MEAN CORPUSCULAR HEMOGLOBIN 28.5 pg (25-34); MEAN CORPUSCULAR HGB CONC 34.9 g/dl (32-36); MEAN PLATELET VOLUME 8.7 fL (7.4-10.4); PLATELET COUNT 455 K/uL (130-400); RED BLOOD COUNT 4.84 M/uL (4.7-6.1); WHITE BLOOD COUNT 8.01 K/uL (4.8-10.8)
[2016-08-07 06:00] LABS: BUN/CREATININE RATIO 7.9 (10-20); CREATININE 0.76 mg/dl (0.60-1.40); POTASSIUM 3.7 mmol/L (3.5-5.1)
[2016-08-07] MEDS: ARIPIprazole TAB 15 MG TAB PO SCH (09:01)
[2016-08-07] MEDS: DIGOXIN 0.25 MG TAB PO SCH (09:02)
[2016-08-07] MEDS: ENOXAPARIN 40 MG/0.4 ML SYR SQ SCH (09:05)
[2016-08-07] MEDS: METOPROLOL SUCC 50MG EXT REL TAB PO SCH ×2 (10:00→20:42)
--- NOTE | 2016-08-07 10:16 | Psychiatric Progress Notes ---
Progress Note Date of Service Aug 07, 2016. Interval History 26 yo male transfer from the [facility] (where he was hospitalized since May. on 304 for schizophrenia). Admit with cardiomyopathy, and cardiology is recommending transfer to a tertiary care facility for further workup. He is on a 302 commitment after he asked to leave and was medically unstable with significant tachycardia. Chief Complaint "I understand". Subjective Patient was seen & assessed and interval progress reviewed. He continues to deny hallucinations and paranoia, and expresses frustration with how long it is taking to get him transferred to another hospital where he can get recommended cardiac treatment. He is taking Abilify as prescribed, and denies side effects. He denies thoughts of harming himself or anyone else. He has been calm and cooperative with medical treatment. A 303 hearing was held today and he did not contest and agreed to stay in the hospital until he can be transferred for appropriate cardiac care. Spoke with Dr. Simpson to review patient's case. He states the patient was improving on clozapine and nearing discharge when he developed several days of tachycardia and was transferred here. He has struggled with his schizophrenia and has not been able to function well because of it. His aftercare is to be through [facility] in [place]. Mental Status Exam During interview pt is: cooperative Appearance: appropriately dressed, appropriately groomed Eye contact is: fair, poor Motor behavior is: no abnormal motor movements Speech: normal in rate, rhythm & volume Affect: blunted Mood is: other ("good") Thought process: concrete Thought content: reality based without delusions Suicidal thought are: denied Homicidal thoughts are: denied Hallucinations: denies auditory, denies visual Cognition: language grossly intact Intelligence estimated to be: below average Insight: limited Judgement: limited Summary of Past History He did well on Risperdal during school but it was discontinued for medication side effects outlined in initial consult. He was stable on Abilify for almost 2 years before he decided that he didn't need it any more. Impression 26 yo male with schizophrenia, transferred from the [facility] where he had been admitted for schizophrenia. He believes Abilify was restarted in preparation for conversion to injectable. He has a fundamental understanding of his medical condition and has thus far been cooperative with treatment. He currently lacks capacity to refuse the recommended treatment regarding his cardiac disease, but states willingness to go to a tertiary care center for further testing as recommended. He is now on 303 commitment to the medical floor which will remain in place until he can be transferred to receive the recommended medical care. He should be transferred to the appropriate tertiary care facility as soon as possible, and his mental illness is not a contraindication to receiving the appropriate medical treatment. Plan 08/02/16--attempted to get copy of commitment from [facility], liaison has called several times and is actively checking with [facility] MH/ID on how to manage 304 if traveling out of [facility]. Previously responded to Abilify, recently restarted as injectable would be preferred agent when ultimately able to resume psych meds. Do not feel comfortable restarting anything until his tachycardia is resolving luckily he is not acutely agitated, if requires premed for transport would recommend Ativan. He demonstrates concrete understanding of his medical condition and is agreeable to treatment, doesn't want to return to [place] at this time which is somewhat related to his baseline paranoia. Dr. Buckley states that other facilities are being explored. His need for ongoing involuntary psychiatry care will need to be readdressed when medically cleared. 08/03--status of commitment confirmed late yesterday afternoon, 302 completed last pm by medical service. He is hypotensive but less tachy today but glucose up following Zyprexa, may/may not be side effect. Regardless he is having periods of agitation and is more paranoid and disoriented today. It is necessary to resume Abilify at a lower dose to avoid further decline and he is agreeable to take this orally. He would be a good candidate for [facility]. Would need to petition 303 on Friday or Friday. Still awaiting documents from [facility] outlining his identified care providers/appts as may need to be rescheduled. 08/05--less insight into condition due to thought disorganization due to schizophrenia but less agitated/restless/paranoid following restart of Abilify. Case discussed with Dr. Buckley as will need premedicated for any ambulance transport as lacks basic understanding of need. Reviewed that would recommend 2 mg Ativan and 5 mg Zyprexa, latter of which previously had good effect. Ideally would try to avoid injection--I'd offer Zyprexa Zydis po first, Ativan could easily be given IV or PO. Reviewed risks of CPK elevation with Dr. Buckley if requires restraint in transport and that agitation precipitating worsening of tachy would put him at risk but per cardiology is medically necessary. If remains at [facility] will need to file 303 on 08/06 as will not be ready for discharge by time 302 expires. [facility] has excellent access to psychiatric consultation. 08/06--continue aripiprazole. Calm and cooperative with treatment here. Agrees to medical transfer as soon as can be arranged. Medical treatment per primary team. Is to follow up with psychiatric providers at [facility] in [facility] upon completion of medical treatment. Visit Code E&M Code: 97281 Data Vital Signs Last 24 Hrs: Date Time Temp Pulse Resp B/P Pulse Ox O2 Delivery O2 Flow Rate FiO2 08/07/16 10:01 92/60 08/07/16 09:02 101 08/07/16 08:00 Room Air 08/07/16 07:16 36.8 101 18 106/52 97 Room Air 08/07/16 04:00 Room Air 08/07/16 03:52 36.6 106 17 102/59 95 Room Air 08/07/16 00:01 92 Room Air 08/06/16 23:06 36.8 108 16 95/49 92 Room Air 08/06/16 20:00 94 Room Air 08/06/16 19:09 112/86 08/06/16 19:06 36.5 116 18 102/63 94 Room Air 08/06/16 16:00 Room Air 08/06/16 15:27 36.8 108 16 104/70 94 08/06/16 12:06 37.0 84 18 91/59 99 08/06/16 12:00 Room Air Meds Administered Last 24 Hrs: Meds Administered (Past 24Hrs) Medications (Trade) Dose Ordered Sig/Speedy Route Start Time Stop Time Status Last Admin Dose Admin Digoxin (Lanoxin Tab) 0.25 mg DAILY PO 08/06/16 09:00 09/05/16 08:59 08/07/16 09:02 0.25 MG Potassium Chloride (Klor-Con M10) 40 meq NOW STAT PO 08/06/16 00:13 08/06/16 00:19 DC 08/06/16 00:32 40 MEQ Albumin Human (Albumin 25%) 25 gm NOW STAT IV 08/06/16 00:18 08/06/16 07:29 DC 08/06/16 00:33 25 GM Metoprolol Succinate (Toprol Xl Tab) 50 mg BID PO 08/06/16 08:30 09/05/16 08:29 08/07/16 10:00 50 MG Lab Results Last 24 Hrs: Last 24 Hours Test 08/06/16 10:10 08/07/16 05:01 Ferritin 345.2 ng/ml Rheumatoid Factor < 10.0 U/mL Lyme Disease IgG Antibody NEG Lyme Disease IgM Antibody NEG White Blood Count 8.01 K/uL Red Blood Count 4.84 M/uL Hemoglobin 13.8 g/dL Hematocrit 39.5 % Mean Corpuscular Volume 81.6 fL Mean Corpuscular Hemoglobin 28.5 pg Mean Corpuscular Hemoglobin Concent 34.9 g/dl RDW Standard Deviation 42.6 fL RDW Coefficient of Variation 14.2 % Platelet Count 455 K/uL Mean Platelet Volume 8.7 fL Sodium Level 139 mmol/L Potassium Level 3.7 mmol/L Chloride Level 105 mmol/L Carbon Dioxide Level 26 mmol/L Anion Gap 8.0 mmol/L Blood Urea Nitrogen 6 mg/dl Creatinine 0.76 mg/dl Est Creatinine Clear Calc Drug Dose 172.8 ml/min Estimated GFR () 147.0 Estimated GFR (Non- 126.8 BUN/Creatinine Ratio 7.9 Random Glucose 101 mg/dl Calcium Level 8.0 mg/dl
--- NOTE | 2016-08-07 11:58 | Progress Note ---
Subjective Date of Service: Aug 07, 2016. Subjective Pt evaluation today including: conversation w/ patient, physical exam, lab review, review of studies, conversation w/ business objects consultant, review of inpatient medication list Saw/examined the patient in room 205 Doing well, no problems/issues to note at this time Problem List Medical Problems: (1) Cardiomyopathy Status: Acute (2) Electrolyte disturbance Status: Acute (3) Elevated troponin Status: Acute (4) Myocarditis Status: Acute Review of Systems Respiratory: No cough, No dyspnea at rest, No dyspnea on exertion, No hemoptysis, No shortness of breath, No sputum, No wheezing Cardiac: No chest pain, No edema, No palpitations Heme: No abnormal bleeding/bruising Medications Current Inpatient Medications Medications (Trade) Dose Ordered Sig/Speedy Route Start Time Stop Time Status Last Admin Dose Admin Acetaminophen (Tylenol Tab) 650 mg Q4H PRN PO 08/01/16 20:30 08/31/16 20:29 08/05/16 02:06 650 MG Enoxaparin Sodium (Lovenox Inj) 40 mg QAM SQ 08/03/16 09:00 09/02/16 08:59 08/07/16 09:05 40 MG Lorazepam 1 mg 1 mg Q4H PRN IV 08/02/16 23:00 09/01/16 22:59 Lorazepam/Syringe (Ativan Inj/ Syringe) 1 ml @ 1 mls/min Q4H PRN IV 08/02/16 23:15 09/01/16 23:14 Aripiprazole (Abilify Tab) 15 mg QAM PO 08/03/16 11:00 09/02/16 10:59 08/07/16 09:01 15 MG Digoxin (Lanoxin Tab) 0.25 mg DAILY PO 08/06/16 09:00 09/05/16 08:59 08/07/16 09:02 0.25 MG Metoprolol Succinate (Toprol Xl Tab) 50 mg BID PO 08/06/16 08:30 09/05/16 08:29 08/07/16 10:00 50 MG Objective Vital Signs Date Time Temp Pulse Resp B/P Pulse Ox O2 Delivery O2 Flow Rate FiO2 08/07/16 10:01 92/60 08/07/16 09:02 101 08/07/16 08:00 Room Air 08/07/16 07:16 36.8 101 18 106/52 97 Room Air 08/07/16 04:00 Room Air 08/07/16 03:52 36.6 106 17 102/59 95 Room Air 08/07/16 00:01 92 Room Air 08/06/16 23:06 36.8 108 16 95/49 92 Room Air 08/06/16 20:00 94 Room Air 08/06/16 19:09 112/86 08/06/16 19:06 36.5 116 18 102/63 94 Room Air 08/06/16 16:00 Room Air 08/06/16 15:27 36.8 108 16 104/70 94 08/06/16 12:06 37.0 84 18 91/59 99 08/06/16 12:00 Room Air Physical Exam General Appearance: no apparent distress Respiratory/Chest: lungs clear, normal breath sounds, no respiratory distress, no accessory muscle use Cardiovascular: regular rate, rhythm, no edema, no murmur Extremities: normal inspection, no pedal edema Neurologic/Psychiatric: alert, normal mood/affect, oriented x 3 Laboratory Results Last 24 Hours Test 08/07/16 05:01 White Blood Count 8.01 K/uL Red Blood Count 4.84 M/uL Hemoglobin 13.8 g/dL Hematocrit 39.5 % Mean Corpuscular Volume 81.6 fL Mean Corpuscular Hemoglobin 28.5 pg Mean Corpuscular Hemoglobin Concent 34.9 g/dl RDW Standard Deviation 42.6 fL RDW Coefficient of Variation 14.2 % Platelet Count 455 K/uL Mean Platelet Volume 8.7 fL Sodium Level 139 mmol/L Potassium Level 3.7 mmol/L Chloride Level 105 mmol/L Carbon Dioxide Level 26 mmol/L Anion Gap 8.0 mmol/L Blood Urea Nitrogen 6 mg/dl Creatinine 0.76 mg/dl Est Creatinine Clear Calc Drug Dose 172.8 ml/min Estimated GFR () 147.0 Estimated GFR (Non- 126.8 BUN/Creatinine Ratio 7.9 Random Glucose 101 mg/dl Calcium Level 8.0 mg/dl Assessment and Plan This is a 26 year old male with PMH of paranoid schizophrenia, coming from the [facility], presents with tachycardia found to have ischemic cardiomyopathy Non ischemic Cardiomyopathy Severe LV systolic dysfunction 08/07 appreciate cardiology input Metoprolol succinate 50mg BID Digoxin 250mcg plan to transfer to [facility] 08/06 he is hypotensive overnight metoprolol tartrate changed to succinate BID dosing as per cardiology may get a repeat echo? if okay with cardiology plan regarding [facility] is canceled as per case management over there will speak with cardiology about other facilities for transfer continue Digoxin 08/05 appreciate cardiology input digoxin added hold off on MONICA-I continue b-floresita 08/04 EF ~ 25-30% continue metoprolol QID dosing HRs in the low 100s, improving may need to add low dose digoxin, MONICA-I plan at this point is to transfer patient to [facility] We have an accepting physician; insurance should not be an issue; medical necessity to transfer - CM aware and working on the issue 08/03 appreciate cardiology input on this matter complicated, complex case - as per cardiology, best case scenario is to get him closer to family in [place] at a heart failure clinic with an inpatient mental health unit As per nursing, mother will be coming in to see the patient today - will speak with mother regarding plan continue metoprolol 08/02 patient presented with tachycardia only complaint is cough had echocardiogram, showing LVEF of 25-30% likely Clozaril related as per cardiology medications stopped (Clozaril and Abilify) started on b-floresita as per cardiology, though he may not be taking this Sinus Tachycardia 4/ HRs in the 110s today, slightly higher than yesterday due to skipped b-floresita doses from his hypotension Toprol 50mg BID 08/04 continue metoprolol 08/03 tachycardia improving to the 110s-120s 08/02 HRs in the 140s-150s started on b-floresita as per cardiology, though patient not compliant this morning monitor in tele Acute Kidney Injury - resolved 08/06 resolved 08/04 creat pending for today possibly contrast induced kidney injury? holding off on IVFs due to low EF; monitor creat 08/03 creat up to 1.6 today CTA with contrast performed on 08/01 at night holding IVFs for now, will discuss with cardiology regarding fluids will monitor and if continues to worsen, may need nephrology input Paranoid Schizophrenia 08/04 continue Abilify at the new lower dose No Clozaril IV Ativan PRN for acute agitation/psychosis, can use IM Zyprexa or IM Thorazine, will hold off as he is stable currently appreciate mental health team input 08/03 appreciate psych input restarted Abilify received IM Zyprexa overnight 08/02 appreciate psych input use Ativan PRN stopped Clozaril + Abilify Discharge planning: acute transfer
[2016-08-07] MEDS ORDERED: TPRSR50 PO (12:00)
[2016-08-07] MEDS ORDERED: LNX25 PO (12:00)
--- NOTE | 2016-08-07 12:05 | Discharge Summary ---
Discharge Summary Date of Service Aug 07, 2016. Discharge Summary Admission Date: Aug 01, 2016 at 20:09 Discharge Date: Aug 03, 2016 Discharge Disposition: Acute care facility Principal Diagnosis: New Onset Cardiomyopathy Paranoid Schizophrenia Transient MAHOGANY Admission Information HPI (per Admitting provider): 26 year old male with history of Paranoid Schizophrenia, currently residing at [facility], presenting with tachycardia. Patient was admitted to [facility] under 302 last May 2016 for Paranoid Schizophrenia. He is currently on Abilify and Clozapine. Patient was noted to be tachycardic in the 150s today and hence was sent to the ER for evaluation. I called the RN at [facility] and she states that since the early part of this month, patient's HR was in the 110-120's. She adds that around 1-2 weeks ago, they noticed that the patient was coughing but no fever/chills. At the ER, patient's HR was noted to be 150s, sinus tachycardia. Troponin elevated at 3.09. Echo done at the bedside showed an EF of 25-30%. On my exam, patient was sitting up in bed, comfortable, pleasant and cooperative. RN Yue at bedside. Patient denies having active chest pain, dyspnea, cough, palpitations, headache , dizziness, nausea, abdominal pain,changes with urination or bowel movement. He states that his mood is ok, although he feels "down" because he was supposed to go home tomorrow but that has to be delayed because of his heart condition. Patient reassured. Denies worsening depression. No other symptoms Physical Exam (per Admitting): General Appearance: WD/WN, no apparent distress Head: normocephalic, atraumatic Eyes: normal inspection, PERRL, sclerae normal ENT: normal ENT inspection, hearing grossly normal, pharynx normal Neck: supple, no adenopathy, thyroid normal, no JVD, trachea midline Respiratory/Chest: chest non-tender, lungs clear, normal breath sounds, no respiratory distress, no accessory muscle use Cardiovascular: no edema, no JVD, no murmur, + tachycardia Abdomen/GI: normal bowel sounds, non tender, soft Back: normal inspection, no CVA tenderness Extremities/Musculoskelatal: normal inspection, no calf tenderness, no pedal edema Neurologic/Psych: employment supervisor II-XII nml as tested, no motor/sensory deficits, alert , normal reflexes, oriented x 3, + pertinent finding (calm, cooperative, slightly anxious) Skin: normal color, warm/dry, no rash Lymphatic: no adenopathy Hospital Course This is a 26 year old male with PMH of paranoid schizophrenia, coming from the [facility], presents with tachycardia found to have ischemic cardiomyopathy Non ischemic Cardiomyopathy Severe LV systolic dysfunction 08/07 appreciate cardiology input Metoprolol succinate 50mg BID Digoxin 250mcg plan to transfer to [facility] - accepting physician: Dr. Judge 08/06 he is hypotensive overnight metoprolol tartrate changed to succinate BID dosing as per cardiology may get a repeat echo? if okay with cardiology plan regarding [facility] is canceled as per case management over there will speak with cardiology about other facilities for transfer continue Digoxin 08/05 appreciate cardiology input digoxin added hold off on MONICA-I continue b-floresita 08/04 EF ~ 25-30% continue metoprolol QID dosing HRs in the low 100s, improving may need to add low dose digoxin, MONICA-I plan at this point is to transfer patient to [facility] We have an accepting physician; insurance should not be an issue; medical necessity to transfer - aware and working on the issue 08/03 appreciate cardiology input on this matter complicated, complex case - as per cardiology, best case scenario is to get him closer to family in [place] at a heart failure clinic with an inpatient mental health unit As per nursing, mother will be coming in to see the patient today - will speak with mother regarding plan continue metoprolol 08/02 patient presented with tachycardia only complaint is cough had echocardiogram, showing LVEF of 25-30% likely Clozaril related as per cardiology medications stopped (Clozaril and Abilify) started on b-floresita as per cardiology, though he may not be taking this Sinus Tachycardia 4/ HRs in the 110s today, slightly higher than yesterday due to skipped b-floresita doses from his hypotension Toprol 50mg BID 08/04 continue metoprolol 08/03 tachycardia improving to the 110s-120s 08/02 HRs in the 140s-150s started on b-floresita as per cardiology, though patient not compliant this morning monitor in tele Acute Kidney Injury - resolved 08/06 resolved 08/04 creat pending for today possibly contrast induced kidney injury? holding off on IVFs due to low EF; monitor creat 08/03 creat up to 1.6 today CTA with contrast performed on 08/01 at night holding IVFs for now, will discuss with cardiology regarding fluids will monitor and if continues to worsen, may need nephrology input Paranoid Schizophrenia 08/04 continue Abilify at the new lower dose No Clozaril IV Ativan PRN for acute agitation/psychosis, can use IM Zyprexa or IM Thorazine, will hold off as he is stable currently appreciate mental health team input 08/03 appreciate psych input restarted Abilify received IM Zyprexa overnight 08/02 appreciate psych input use Ativan PRN stopped Clozaril + Abilify Discharge planning: acute transfer Total time spent on discharge = 60 minutes This includes examination of the patient, discharge planning, medication reconciliation, and communication with other providers. Discharge Instructions Patient to be transferred to [facility], [place], Dr. Judge, cardiology - accepting physician Metoprolol Succinate 50mg BID Digoxin 0.25mg daily IV Ativan PRN Abilify re-started on low dose stop Clozaril
--- NOTE | 2016-08-07 12:22 | Cardiology Follow-Up ---
Subjective General Date of Service: Aug 07, 2016. Chief Complaint: follow up Pt evaluation today including: conversation w/ patient, physical exam, chart review, lab review, review of studies, conversation w/ small business consultant, review of inpatient medication list History of Present Illness The patient is a 26 year old male seen in follow up. Heart rate improved. No CP, SOB, edema, or orthopnea. Tolerating meds. Offers no complaints today. Allergies Coded Allergies: Cashew (Unverified Allergy, Unknown, unknown, 07/20/16) Haloperidol (Verified Allergy, Unknown, tongue swelling, 07/20/16) Social History Smoking Status: Never Smoker Problem List Medical Problems: (1) Cardiomyopathy Status: Acute (2) Electrolyte disturbance Status: Acute (3) Elevated troponin Status: Acute (4) Myocarditis Status: Acute Review of Systems Respiratory: No cough, No dyspnea at rest, No dyspnea on exertion, No hemoptysis, No problem reported, No shortness of breath, No sputum, No wheezing Cardiac: No PND, No chest pain, No claudication, No edema, No orthopnea, No palpitations Physical Exam Vital Signs Last Vital Signs Documentation Date Time Temp Pulse Resp B/P Pulse Ox O2 Delivery O2 Flow Rate FiO2 08/07/16 10:01 92/60 08/07/16 09:02 101 08/07/16 08:00 Room Air 08/07/16 07:16 36.8 18 97 08/05/16 20:00 3.0 Physical Exam Constitutional: General Apperance: well-nourished Level of Distress: NAD Ambulation: ambulating normally Head: normocephalic, atraumatic ENMT: normal ENT inspection Neck: supple Lungs: Auscultation: breath sounds normal, no wheezing, no rales/crackles, no rhonchi Cardiovascular: Heart Auscultation: RRR, normal S1, normal S2, no murmurs Peripheral Pulses: Radial Pulse: normal on the left, normal on the right Abdomen: Bowel Sounds: normal Inspection & Palpation: soft, non-distended, no tenderness, guarding & rebound Extremities: no edema, no clubbing, no ulcers Neurologic: Gait & Station: pertinent finding (moves all 4 extremities, follows commands. ) Cranial Nerves: grossly intact Assessment and Plan Assessment and Plan FINAL IMPRESSION: 1. A 26-year-old patient with newly diagnosed cardiomyopathy. Possibly tachycardia induced, medication related (clozaril), post infectious, and/or inflammatory process not excluded. -compensated with improved heart rate today 2. Borderline resting hypotension -- asymptomatic. 3. Transiently elevated creatinine likely related to IV contrast in addition to hypoperfusion in the setting of low cardiac output. The patient's creatinine has returned to normal range. 4. Schizophrenia. 5. Recent treatment with Clozaril. PLAN AND RECOMMENDATIONS: Continue Toprol XL 50mg BID and digoxin 250 mcg daily. Recommend transfer to a tertiary care center for cardiac MRI. Will not add MONICA inhibitor due to borderline resting hypotension at this time, although, this will be an ongoing consideration as part of his evidence based heart failure therapy. Plan for transfer to [facility] today. Laboratory Results Last 24 Hours Test 08/07/16 05:01 White Blood Count 8.01 K/uL Red Blood Count 4.84 M/uL Hemoglobin 13.8 g/dL Hematocrit 39.5 % Mean Corpuscular Volume 81.6 fL Mean Corpuscular Hemoglobin 28.5 pg Mean Corpuscular Hemoglobin Concent 34.9 g/dl RDW Standard Deviation 42.6 fL RDW Coefficient of Variation 14.2 % Platelet Count 455 K/uL Mean Platelet Volume 8.7 fL Sodium Level 139 mmol/L Potassium Level 3.7 mmol/L Chloride Level 105 mmol/L Carbon Dioxide Level 26 mmol/L Anion Gap 8.0 mmol/L Blood Urea Nitrogen 6 mg/dl Creatinine 0.76 mg/dl Est Creatinine Clear Calc Drug Dose 172.8 ml/min Estimated GFR () 147.0 Estimated GFR (Non- 126.8 BUN/Creatinine Ratio 7.9 Random Glucose 101 mg/dl Calcium Level 8.0 mg/dl
[2016-08-08 04:21] VITALS: BP 98/66; PULSE 84; TEMP 36.7; O2SAT 98
[2016-08-08 06:46] LABS: BLOOD UREA NITROGEN 8 mg/dl (7-18); BUN/CREATININE RATIO 11.1 (10-20); CARBON DIOXIDE 24 mmol/L (21-32); CHLORIDE 107 mmol/L (98-107); CREATININE 0.72 mg/dl (0.60-1.40); GLUCOSE 98 mg/dl (70-99); MAGNESIUM 2.1 mg/dl (1.8-2.4); POTASSIUM 3.9 mmol/L (3.5-5.1); SODIUM 140 mmol/L (136-145)
[2016-08-08 07:31] LABS: MEAN CELL VOLUME 83.7 fL (80-100); MEAN CORPUSCULAR HEMOGLOBIN 28.7 pg (25-34); MEAN CORPUSCULAR HGB CONC 34.3 g/dl (32-36); MEAN PLATELET VOLUME 8.8 fL (7.4-10.4); PLATELET COUNT 481 K/uL (130-400); RED BLOOD COUNT 4.78 M/uL (4.7-6.1); WHITE BLOOD COUNT 7.59 K/uL (4.8-10.8)
[2016-08-08 07:55] VITALS: BP 103/53; PULSE 88; TEMP 36.3; O2SAT 94
[2016-08-08] MEDS: METOPROLOL SUCC 50MG EXT REL TAB PO SCH ×2 (08:42→20:25)
[2016-08-08] MEDS: ARIPIprazole TAB 15 MG TAB PO SCH (08:43)
[2016-08-08] MEDS: DIGOXIN 0.25 MG TAB PO SCH (08:43)
--- NOTE | 2016-08-08 08:43 | Psychiatric Progress Notes ---
Psychiatric Progress Note Date of Service Aug 06, 2016. Notes TO REPLACE PROGRESS NOTE FROM 08/06/16 that was accidentally marked as cancelled. Progress Note Date of Service Aug 06, 2016. Interval History 26 yo male transfer from the [facility] (where he was hospitalized since on 304 for schizophrenia). Admit with cardiomyopathy, and cardiology is recommending transfer to a tertiary care facility for further workup. He is on a 302 commitment after he asked to leave and was medically unstable with significant tachycardia. Chief Complaint "Why are you asking me all these stupid questions?" Subjective Patient was seen & assessed, records reviewed, and case discussed with Dr. Bañuelos of cardiology, Dr. Buckley, case management, and Dr. Miranda who has been seeing him on the psychiatric consult service. He has been in our facility for 5 days and is being treated for cardiomyopathy, cardiac, and hypotension. Dr. Miranda saw him on admission, and restarted aripiprazole, and when she followed up with him yesterday, his paranoia had improved. He has demonstrated poor insight into the concerns about his cardiac condition and the need for transfer to a tertiary care center for additional testing as well as the need for ongoing monitoring of his cardiac issues. He has been calm and cooperative with care here, and the primary team is in the process of referring him to Hospital the can do a cardiac MRI. Today I met with the patient, the psychiatric nurse liaison, and we were then joined by Dr. Bañuelos. The patient was irritable and only partially cooperative with the interview, stating "I just want to get out of here and get this done." He states that his thoughts are "completely fine," and denies hallucinations and paranoia. He will not answer when asked if he thinks he has a mental illness, stating "I'd rather not answer that, you're making me answer stupid questions." He repeatedly states that he does not want to go back to the [facility], as he was already there for extended treatment, and just wants to go home and be with his family. Although he was somewhat resistant to answering questions, he was able to state that he understands his doctors want him to be transferred to another facility to get an MRI, and says that he trusts his doctors' decisions about his care, stating he would "obviously" go to another facility to have further testing, but then moments later states that he just wants to go home. I was present for Dr. Bañuelos's discussion with the patient that he is not medically stable for discharge, review of the treatment recommendations and the risks of refusing treatment, including decompensated heart failure and arrhythmia, and the need to follow-up after discharge with frequent appointments for cardiac monitoring. The patient was not able to reiterate these risks, understand the situation or its potential consequences, vacillated in his willingness to follow the treatment recommendations, and could not demonstrate ability to manipulate information in a rational manner or describe his decision-making process. Review of Systems Denies anxiety, pain, shortness of breath, dizziness. Mental Status Exam During interview pt is: cooperative (partially-answers questions in an irritable manner), guarded Appearance: disheveled, other (overweight, dressed in shorts and a T-shirt) Eye contact is: poor Motor behavior is: no abnormal motor movements (seated in bed) Speech: normal in rate, rhythm & volume Affect: blunted, irritable Mood is: other ("I don't understand") Thought process: concrete Thought content: other (perseveration) Suicidal thought are: denied Homicidal thoughts are: denied Hallucinations: denies auditory, denies visual Cognition: language grossly intact Intelligence estimated to be: below average Insight: limited Judgement: limited Summary of Past History He did well on Risperdal during school but it was discontinued for medication side effects outlined in initial consult. He was stable on Abilify for almost 2 years before he decided that he didn't need it any more. Impression 26 yo male with schizophrenia, transferred from the [facility] where he had been admitted involuntarily since 05/25/2016 for schizophrenia. He believes Abilify was restarted in preparation for conversion to injectable. He has a fundamental understanding of his medical condition and has thus far been cooperative with treatment. He currently lacks capacity to refuse the recommended treatment regarding his cardiac disease, but states willingness to go to a tertiary care center for further testing as recommended. He is now on 302 commitment to the medical floor which expires tomorrow evening, and if he is still in our facility tomorrow, we will hold a commitment hearing to ensure that he stays here until he can receive the recommended medical care. He should be transferred to the appropriate tertiary care facility as soon as possible, and his mental illness is not a contraindication to receiving the appropriate medical treatment. Plan 08/02/16--attempted to get copy of commitment from [facility], liaison has called several times and is actively checking with [facility] MH/ID on how to manage 304 if traveling out of [facility] seems like previously had some response to Abilify, recently restarted as injectable would be preferred agent when ultimately able to resume psych meds I do not feel comfortable restarting anything until his tachy is resolving lucikly he is not acutely agitated, if requires premed for transport would recommend Ativan he does have concrete understanding of his medical condition and is agreeable to treatment, doesn't want to return to [place] at this time which is somewhat related to his baseline paranoia. Dr. Buckley states that other facilities are being explored. his need for ongoing involuntary psychiatry care will need to be readdressed when medically cleared 08/03--status of commitment confirmed late yesterday afternoon, 302 completed last pm by medical service. He is hypotensive but less tachy today but glucose up following Zyprexa, may/may not be side effect. Regardless he is having periods of agitation and is more paranoid and disoriented today. It is necessary to resume Abilify at a lower dose to avoid further decline and he is agreeable to take this orally. He would be a good candidate for [facility]. Would need to petition 303 on Friday or Friday. Still awaiting documents from [facility] outlining his identified care providers/appts as may need to be rescheduled. 08/05--less insight into condition due to thought disorganization due to schizophrenia but less agitated/restless/paranoid following restart of Abilify. Case discussed with Dr. Buckley as will need premedicated for any ambulance transport as lacks basic understanding of need. Reviewed that would recommend 2 mg Ativan and 5 mg Zyprexa, latter of which previously had good effect. Ideally would try to avoid injection--I'd offer Zyprexa zydis po first, Ativan could easily be given IV or PO. Reviewed risks of CPK elevation with Dr. Buckley if requires restraint in transport and that agitation precipitating worsening of tachy would put him at risk but per cardiology is medically necessary. If remains at [facility] will need to file 303 on 08/06 as will not be ready for discharge by time 302 expires. [facility] has excellent access to psychiatric consultation. Visit Code E&M Code: 34709 Data Vital Signs Last 24 Hrs: Date Time Temp Pulse Resp B/P Pulse Ox O2 Delivery O2 Flow Rate FiO2 08/06/16 08:35 95 08/06/16 08:00 Room Air 08/06/16 07:02 37.0 108 18 85/45 92 Room Air 08/06/16 04:00 Room Air 08/06/16 03:12 37.0 116 18 81/47 94 Room Air 08/06/16 00:59 95/74 08/06/16 00:50 108/63 08/06/16 00:40 36.8 118 18 97/72 92 Room Air 08/06/16 00:06 62/38 08/05/16 23:59 Room Air 08/05/16 23:56 36.7 105 18 66/35 98 Room Air 08/05/16 22:07 85/50 08/05/16 22:00 123 87/49 08/05/16 20:00 96 Room Air 3.0 08/05/16 20:00 96 Room Air 08/05/16 19:03 36.5 109 17 102/62 94 Room Air 08/05/16 16:08 75 110/66 08/05/16 16:00 96 Room Air 08/05/16 15:12 36.7 112 18 87/58 96 Room Air 08/05/16 13:06 106 16 94/70 94 08/05/16 12:00 Room Air 08/05/16 11:00 109 Meds Administered Last 24 Hrs: Meds Administered (Past 24Hrs) Medications (Trade) Dose Ordered Sig/Speedy Route Start Time Stop Time Status Last Admin Dose Admin Digoxin (Lanoxin Tab) 0.25 mg NOW ONCE PO 08/05/16 09:30 08/05/16 09:47 DC 08/05/16 11:00 0.25 MG Digoxin (Lanoxin Tab) 0.25 mg DAILY PO 08/06/16 09:00 09/05/16 08:59 08/06/16 08:35 0.25 MG Potassium Chloride (Klor-Con M10) 40 meq NOW STAT PO 08/06/16 00:13 08/06/16 00:19 DC 08/06/16 00:32 40 MEQ Albumin Human (Albumin 25%) 25 gm NOW STAT IV 08/06/16 00:18 08/06/16 07:29 DC 08/06/16 00:33 25 GM Metoprolol Succinate (Toprol Xl Tab) 50 mg BID PO 08/06/16 08:30 09/05/16 08:29 08/06/16 09:04 50 MG Lab Results Last 24 Hrs: Last 24 Hours Test 08/06/16 05:14 08/06/16 09:39 White Blood Count 9.49 K/uL Red Blood Count 4.88 M/uL Hemoglobin 13.8 g/dL Hematocrit 39.8 % Mean Corpuscular Volume 81.6 fL Mean Corpuscular Hemoglobin 28.3 pg Mean Corpuscular Hemoglobin Concent 34.7 g/dl RDW Standard Deviation 42.2 fL RDW Coefficient of Variation 14.1 % Platelet Count 395 K/uL Mean Platelet Volume 9.0 fL Sodium Level 138 mmol/L Potassium Level 3.6 mmol/L Chloride Level 104 mmol/L Carbon Dioxide Level 27 mmol/L Anion Gap 7.0 mmol/L Blood Urea Nitrogen 7 mg/dl Creatinine 0.86 mg/dl Est Creatinine Clear Calc Drug Dose 152.7 ml/min Estimated GFR () 139.7 Estimated GFR (Non- 120.5 BUN/Creatinine Ratio 7.9 Random Glucose 106 mg/dl Calcium Level 7.9 mg/dl
[2016-08-08] MEDS: ENOXAPARIN 40 MG/0.4 ML SYR SQ SCH (08:44)
--- NOTE | 2016-08-08 11:53 | Cardiology Follow-Up ---
Subjective General Date of Service: Aug 08, 2016. Chief Complaint: follow up Pt evaluation today including: conversation w/ patient, conversation w/ family , physical exam, chart review, lab review, review of studies, conversation w/ senior consumer insights consultant, review of inpatient medication list History of Present Illness The patient is a 26 year old male seen in follow up. Heart rate unchanged overnight. No CP, SOB, edema, or orthopnea. Tolerating meds. Offers no complaints today. Transfer to [facility] denied. Allergies Coded Allergies: Cashew (Unverified Allergy, Unknown, unknown, 07/20/16) Haloperidol (Verified Allergy, Unknown, tongue swelling, 07/20/16) Social History Smoking Status: Never Smoker Problem List Medical Problems: (1) Cardiomyopathy Status: Acute (2) Electrolyte disturbance Status: Acute (3) Elevated troponin Status: Acute (4) Myocarditis Status: Acute Review of Systems Respiratory: No cough, No dyspnea at rest, No dyspnea on exertion, No hemoptysis, No shortness of breath, No sputum, No wheezing Cardiac: No PND, No chest pain, No edema, No orthopnea, No palpitations Physical Exam Vital Signs Last Vital Signs Documentation Date Time Temp Pulse Resp B/P Pulse Ox O2 Delivery O2 Flow Rate FiO2 08/08/16 08:43 84 08/08/16 08:00 Room Air 08/08/16 07:55 36.3 16 103/53 94 08/05/16 20:00 3.0 Physical Exam Constitutional: General Apperance: well-nourished Level of Distress: NAD Ambulation: ambulating normally Head: normocephalic, atraumatic ENMT: normal ENT inspection Neck: supple Lungs: Auscultation: breath sounds normal, no wheezing, no rales/crackles, no rhonchi Cardiovascular: Heart Auscultation: RRR, normal S1, normal S2, no murmurs Peripheral Pulses: Radial Pulse: normal on the left, normal on the right Abdomen: Bowel Sounds: normal Inspection & Palpation: soft, non-distended, no tenderness, guarding & rebound Extremities: no edema, no clubbing, no ulcers Neurologic: Gait & Station: pertinent finding (moves all 4 extremities, follows commands. ) Cranial Nerves: grossly intact Assessment and Plan Assessment and Plan FINAL IMPRESSION: 1. A 26-year-old patient with newly diagnosed cardiomyopathy. Possibly tachycardia induced, medication related (clozaril), post infectious, and/or inflammatory process not excluded. -compensated with improved heart rate today 2. Borderline resting hypotension -- improved / asymptomatic. 3. Transiently elevated creatinine likely related to IV contrast in addition to hypoperfusion in the setting of low cardiac output. The patient's creatinine has returned to normal range. 4. Schizophrenia. 5. Recent treatment with Clozaril. PLAN AND RECOMMENDATIONS: Continue Toprol XL 50mg BID and digoxin 250 mcg daily. Recommend transfer to a tertiary care center for cardiac MRI. Will not add MONICA inhibitor due to borderline resting hypotension at this time, although, this will be an ongoing consideration as part of his evidence based heart failure therapy. Case discussed with hospitalist. Patient denied transfer to [facility]. She will attempt to contact alternative centers in the [facility] for transfer. Laboratory Results Last 24 Hours Test 08/08/16 05:20 White Blood Count 7.59 K/uL Red Blood Count 4.78 M/uL Hemoglobin 13.7 g/dL Hematocrit 40.0 % Mean Corpuscular Volume 83.7 fL Mean Corpuscular Hemoglobin 28.7 pg Mean Corpuscular Hemoglobin Concent 34.3 g/dl RDW Standard Deviation 45.2 fL RDW Coefficient of Variation 14.6 % Platelet Count 481 K/uL Mean Platelet Volume 8.8 fL Sodium Level 140 mmol/L Potassium Level 3.9 mmol/L Chloride Level 107 mmol/L Carbon Dioxide Level 24 mmol/L Anion Gap 9.0 mmol/L Blood Urea Nitrogen 8 mg/dl Creatinine 0.72 mg/dl Est Creatinine Clear Calc Drug Dose 177.1 ml/min Estimated GFR () > 150.0 Estimated GFR (Non- 129.7 BUN/Creatinine Ratio 11.1 Random Glucose 98 mg/dl Calcium Level 8.0 mg/dl Magnesium Level 2.1 mg/dl
[2016-08-08 12:47] VITALS: BP 99/64; PULSE 95; TEMP 36.4; O2SAT 96
[2016-08-08 15:23] VITALS: BP 126/76; PULSE 86; TEMP 36.4; O2SAT 99
[2016-08-08 18:56] VITALS: BP 108/51; PULSE 89; TEMP 36.6; O2SAT 94
--- NOTE | 2016-08-08 21:01 | Progress Note ---
Medicine Progress Note Date & Time of Visit: Aug 08, 2016 at 20:54. Subjective Patient seen and examined. Mother present at bedside. Denies complaints. Anticipating transfer. Objective Last 8 Hrs Date Time Temp Pulse Resp B/P Pulse Ox O2 Delivery O2 Flow Rate FiO2 08/08/16 20:00 Room Air 08/08/16 18:56 36.6 89 18 108/51 94 Room Air 08/08/16 16:00 Room Air 08/08/16 15:23 36.4 86 16 126/76 99 Room Air Physical Exam: General-awake; alert; NAD Eyes-EOMI; no scleral icterus Neck-no stridor; trachea midline Lungs-CTA bilaterally; no wheezes/crackles Heart-RRR; no m/r/g Abdomen-soft; NTND; nBS Extremities-no c/c/e; no deformity Neuro-no focal deficits Laboratory Results: Last 24 Hours Test 08/08/16 05:20 White Blood Count 7.59 K/uL Red Blood Count 4.78 M/uL Hemoglobin 13.7 g/dL Hematocrit 40.0 % Mean Corpuscular Volume 83.7 fL Mean Corpuscular Hemoglobin 28.7 pg Mean Corpuscular Hemoglobin Concent 34.3 g/dl RDW Standard Deviation 45.2 fL RDW Coefficient of Variation 14.6 % Platelet Count 481 K/uL Mean Platelet Volume 8.8 fL Sodium Level 140 mmol/L Potassium Level 3.9 mmol/L Chloride Level 107 mmol/L Carbon Dioxide Level 24 mmol/L Anion Gap 9.0 mmol/L Blood Urea Nitrogen 8 mg/dl Creatinine 0.72 mg/dl Est Creatinine Clear Calc Drug Dose 177.1 ml/min Estimated GFR () > 150.0 Estimated GFR (Non- 129.7 BUN/Creatinine Ratio 11.1 Random Glucose 98 mg/dl Calcium Level 8.0 mg/dl Magnesium Level 2.1 mg/dl Assessment & Plan Patient is a 26 year old male with PMH of paranoid schizophrenia, admitted from the [facility], who presented with tachycardia and was found to have new-onset cardiomyopathy. Cardiomyopathy - Cardiology consulted - continue metoprolol and digoxin - low-normal blood pressure prohibiting start of makeda-i MAHOGANY - possibly contrast induced nephropathy - resolved Paranoid schizophrenia - Psychiatry consulted - continue Ashley Kumar: accepted to [facility]; awaiting bed availability Discharge planning: acute transfer Consultants: Cardiology Psychiatry Procedures: CT chest 1. Limited study due to severe patient respiratory and somatic motion. 2. No evidence for main or central pulmonary embolus. 3. Third order vessels are not diagnostically evaluated due to motion. 4. Findings of congestive failure. 5. Small pericardial effusion TTE * Study was performed on at the bedside in the ED. * Sinus tachycardia at 155 bpm was present at the time of the echocardiogram. * The left ventricle is normal in size. * There is normal left ventricular wall thickness. * There is severe global hypokinesis of the left ventricle. * The LV Ejection Fraction = 25-30%. * The right ventricle is normal size. * The right ventricular systolic function is moderately reduced. * There is mild mitral regurgitation. * A small circumferential pericardial effusion is present. * There are no echocardiographic indications of cardiac tamponade. Current Inpatient Medications: Current Inpatient Medications Medications (Trade) Dose Ordered Sig/Speedy Route Start Time Stop Time Status Last Admin Dose Admin Acetaminophen (Tylenol Tab) 650 mg Q4H PRN PO 08/01/16 20:30 08/31/16 20:29 08/05/16 02:06 650 MG Enoxaparin Sodium (Lovenox Inj) 40 mg QAM SQ 08/03/16 09:00 09/02/16 08:59 08/08/16 08:44 40 MG Lorazepam 1 mg 1 mg Q4H PRN IV 08/02/16 23:00 09/01/16 22:59 Lorazepam/Syringe (Ativan Inj/ Syringe) 1 ml @ 1 mls/min Q4H PRN IV 08/02/16 23:15 09/01/16 23:14 Aripiprazole (Abilify Tab) 15 mg QAM PO 08/03/16 11:00 09/02/16 10:59 08/08/16 08:43 15 MG Digoxin (Lanoxin Tab) 0.25 mg DAILY PO 08/06/16 09:00 09/05/16 08:59 08/08/16 08:43 0.25 MG Metoprolol Succinate (Toprol Xl Tab) 50 mg BID PO 08/06/16 08:30 09/05/16 08:29 08/08/16 20:25 50 MG
[2016-08-08 22:57] VITALS: BP 120/68; PULSE 89; TEMP 36.5; O2SAT 94
[2016-08-09 04:00] VITALS: BP 118/72; PULSE 84; TEMP 36.7; O2SAT 95
[2016-08-09] MEDS: ARIPIprazole TAB 15 MG TAB PO SCH (07:39)
[2016-08-09] MEDS: METOPROLOL SUCC 50MG EXT REL TAB PO SCH (07:39)
[2016-08-09] MEDS: DIGOXIN 0.25 MG TAB PO SCH (07:40)
[2016-08-09 08:00] VITALS: BP 121/68; PULSE 78; TEMP 36.3; O2SAT 96
[2016-08-09 08:12] VITALS: BP 118/72; PULSE 118; TEMP 36.7; O2SAT 95
[2016-08-09] MEDS ORDERED: OLANZAPINE ZYDIS 5 MG ORALLY DIS. TAB PO ONE (10:00)
[2016-08-09] MEDS ORDERED: NURSING VERBAL MED ORDER ONE (10:15)
--- NOTE | 2016-08-09 15:57 | Psychiatric Progress Notes ---
Psychiatric Progress Note Date of Service Aug 09, 2016. Notes Patient seen. MS assessed. Interim progress reviewed with liaison. cc"I'm supposed to be going today, what's taking so long?" HPI: remains cooperative with care, understands he's accepted to [facility] and that I recommend premedication for transfer given distance and previous upset/confusion. ROS: denies physical complaints but generally has lacked insight MSE: alert, calm, thoughts concrete, no SI/HI/fermin IMP: schizophrenia--currently on 303 commitment on medical floor for psychiatric monitoring/rx following d/c of Clozaril. Plan: continue Abilify current dose transferring commitment (staff in contact with [facility]) to [facility] for ongoing medical management of cardiac issues recommend Ativan 1 mg IV prior to transport and to have 1 dose Zyprexa zydis 5 mg available in ambulance in case of increase in symptoms in transport
--- NOTE | 2016-08-09 19:47 | Discharge Summary ---
Discharge Summary Date of Service Aug 09, 2016. Discharge Summary Admission Date: Aug 01, 2016 at 20:09 Discharge Date: Aug 09, 2016 Discharge Disposition: Acute care facility Principal Diagnosis: Cardiomyopathy Secondary Diagnoses/Problems: Schizophrenia Procedures: CT chest 1. Limited study due to severe patient respiratory and somatic motion. 2. No evidence for main or central pulmonary embolus. 3. Third order vessels are not diagnostically evaluated due to motion. 4. Findings of congestive failure. 5. Small pericardial effusion TTE * Study was performed on at the bedside in the ED. * Sinus tachycardia at 155 bpm was present at the time of the echocardiogram. * The left ventricle is normal in size. * There is normal left ventricular wall thickness. * There is severe global hypokinesis of the left ventricle. * The LV Ejection Fraction = 25-30%. * The right ventricle is normal size. * The right ventricular systolic function is moderately reduced. * There is mild mitral regurgitation. * A small circumferential pericardial effusion is present. * There are no echocardiographic indications of cardiac tamponade. Consultations: Cardiology Psychiatry Medication Reconciliation New Medications: Digoxin (Digoxin) 0.25 Mg Tab 0.25 MG PO DAILY for 30 Days, #30 TAB Metoprolol Succinate (Metoprolol Succinate ER) 50 Mg Tabcr 50 MG PO BID for 30 Days, #60 TABS Changed Medications: Aripiprazole (Abilify) 15 Mg Tab 1 TAB PO DAILY for 30 Days, #30 TAB (Changed from: Aripiprazole (Abilify) 30 Mg Tab 30 Mg PO DAILY) Discontinued Medications: Clozapine (Clozapine) 100 Mg Tab 275 MG PO QPM Admission Information HPI (per Admitting provider): 26 year old male with history of Paranoid Schizophrenia, currently residing at [place], presenting with tachycardia. Patient was admitted to [facility] under 302 last May 2016 for Paranoid Schizophrenia. He is currently on Abilify and Clozapine. Patient was noted to be tachycardic in the 150s today and hence was sent to the ER for evaluation. I called the RN at [facility] and she states that since the early part of this month, patient's HR was in the 110-120's. She adds that around 1-2 weeks ago, they noticed that the patient was coughing but no fever/chills. At the ER, patient's HR was noted to be 150s, sinus tachycardia. Troponin elevated at 3.09. Echo done at the bedside showed an EF of 25-30%. On my exam, patient was sitting up in bed, comfortable, pleasant and cooperative. RN Yue at bedside. Patient denies having active chest pain, dyspnea, cough, palpitations, headache , dizziness, nausea, abdominal pain,changes with urination or bowel movement. He states that his mood is ok, although he feels "down" because he was supposed to go home tomorrow but that has to be delayed because of his heart condition. Patient reassured. Denies worsening depression. No other symptoms Physical Exam (per Admitting): General Appearance: WD/WN, no apparent distress Head: normocephalic, atraumatic Eyes: normal inspection, PERRL, sclerae normal ENT: normal ENT inspection, hearing grossly normal, pharynx normal Neck: supple, no adenopathy, thyroid normal, no JVD, trachea midline Respiratory/Chest: chest non-tender, lungs clear, normal breath sounds, no respiratory distress, no accessory muscle use Cardiovascular: no edema, no JVD, no murmur, + tachycardia Abdomen/GI: normal bowel sounds, non tender, soft Back: normal inspection, no CVA tenderness Extremities/Musculoskelatal: normal inspection, no calf tenderness, no pedal edema Neurologic/Psych: historical guide II-XII nml as tested, no motor/sensory deficits, alert , normal reflexes, oriented x 3, + pertinent finding (calm, cooperative, slightly anxious) Skin: normal color, warm/dry, no rash Lymphatic: no adenopathy Hospital Course Patient is a 26 year old male with PMH of paranoid schizophrenia, admitted from the [facility], who presented with tachycardia and was found to have new-onset cardiomyopathy. Cardiology was consulted. Patient was started on metoprolol and digoxin. Low-normal blood pressures prohibited starting an makeda-i. Cardiology recommended transfer to a tertiary care center for cardiac MRI. Hospital course complicated by MAHOGANY, possibly contrast induced nephropathy. This resolved. Psychiatry was consulted for paranoid schizophrenia. Abilify dosing was changed. Patient deemed stable for discharge to [facility]. PE on discharge: General- awake; alert; NAD Eyes- EOMI; no scleral icterus Neck- no stridor; trachea midline Lungs- CTA bilaterally; no wheezes/crackles Heart- RRR; no m/r/g Abdomen- soft; NTND; nBS Extremities- no c/c/e; no deformity Neuro- no focal deficits Skin- no appreciable rash or bruise . Total time spent on discharge = This includes examination of the patient, discharge planning, medication reconciliation, and communication with other providers. Discharge Instructions Discharge Instructions Date of Service Aug 03, 2016. Admission Reason for Admission: Tachycardia Discharge Discharge Diagnosis / Problem: Nonischemic Cardiomyopathy, LV dysfunction, tachycardia, MAHOGANY, schizophrenia Discharge Goals Goal(s): Decrease discomfort, Improve function, Diagnostic testing, Therapeutic intervention Activity Recommendations Activity Limitations: resume your previous activity . Instructions / Follow-Up Instructions / Follow-Up Patient to be transferred to [facility] - Dr. Cabrera, cardiology, accepted patient Should continue metoprolol as long as blood pressure stable Abilify started on low dose stop Clozaril Current Hospital Diet Patient's current hospital diet: Regular Diet Discharge Diet Recommended Diet: Regular Diet Pending Studies Studies pending at discharge: no Medical Emergencies . Who to Call and When: Medical Emergencies: If at any time you feel your situation is an emergency, please call 911 immediately. . Non-Emergent Contact Non-Emergency issues call your: Primary Care Provider . . "Provider Documentation" section prepared by Camille Buckley. VTE Core Measure Inpt VTE Proph given/why not?: Enoxaparin (Lovenox)SQ
--- NOTE | 2016-08-12 13:06 | Critical Care Consultation ---
Critical Care Consultation Date of Consultation: Aug 12, 2016. Attending Physician: Vielka Tovar MD Reason for Consultation: Tachycardia, possible cardiomyopathy History of Present Illness This is a delayed chart entry. Patient is a 26-year-old male who presented to the emergency department from the [facility] for evaluation of tachycardia. I was contacted by the emergency medicine attending and evaluated the patient. Patient does not describe palpitations, chest pain, shortness of breath. He is currently in the [facility] receiving inpatient mental health treatment. Denies alcohol tobacco or illicit drug use. He denies any family history of thyroid disease. Past Medical/Surgical History Denies thyroid problems, denies family history of thyroid, denies history of sudden cardiac , denies clotting disorder. Family History Patient reports no known family medical history. Social History Smoking Status: Never Smoker Alcohol Use: none Drug Use: none, other (history of using metabolic steroids) Marital Status: single Housing Status: other Occupation Status: unemployed Allergies Coded Allergies: Cashew (Unverified Allergy, Unknown, unknown, 07/20/16) Haloperidol (Verified Allergy, Unknown, tongue swelling, 07/20/16) Home Medications Scheduled Aripiprazole (Abilify), 1 TAB PO DAILY Digoxin (Digoxin), 0.25 MG PO DAILY Metoprolol Succinate (Metoprolol Succinate ER), 50 MG PO BID Review of Systems A 10 point review of systems has been reviewed and is otherwise negative. Constitutional: + fever (patient admits to low-grade temperature, 99) Eyes: No discharge, No eye pain, No worsening of vision ENT: No hearing loss Respiratory: + cough (recent viral URI) Cardiovascular: No chest pain, No claudication, No edema, No orthopnea, No palpitations Abdomen: No nausea, No pain Genitourinary - Male: No hematuria Physical Exam General Appearance: well-appearing, WD/WN, no apparent distress Head: normocephalic, atraumatic Eyes: PERRLA, no discharge, EOMI, other (no proptosis) ENT: normal nasal exam, normal mouth exam, normal throat exam Neck: normal range of motion, no tenderness, trachea midline, no stridor, supple, no thyromegaly Respiratory: breath sounds normal, clear to auscultation Cardiovasular: normal S1S2, no murmur, no gallop, no rub, no JVD, normal peripheral pulses, irregular rate (tachycardia up into the 140s, 150s) Abdomen: non tender, normal bowel sounds, no rebound, no masses, no guarding, no organomegaly Back: normal inspection Upper Extremities: no edema Lower Extremities: no edema Neuro: alert, oriented x 3, normal motor exam, normal sensation Reflexes: biceps (R) (2+), bicpes (L) (2+), patellar (R) (2+), patellar (L) (2+ ) Psychiatric: normal affect Laboratory Results I reviewed the labs that were obtained in the emergency department Diagnostic Results Reviewed the chest x-ray was obtained of the emergency department. Assessment & Plan Sinus tachycardia: And concern for other causes a sinus tachycardia, I doubt that this is a PE. Before obtaining a CT scan of the chest I encouraged the TSH and T4 level to exclude thyroid storm, the concern being the recent URI. Other considerations are given to cardiomyopathy secondary to virus. I personally went and discussed the case with Dr. Lomas who will obtain an echocardiogram in the emergency department. At this time he does not meet criteria for ICU admission. Procedure Note Procedure Date Aug 12, 2016. Procedure Description Procedure Name: Limited bedside bilateral venous duplex Procedure time out: correct procedure Consent obtained: verbal Description: I was able to visualize the bilateral common femoral, confluence, and superficial femoral all which compressed without evidence of acute thrombus. As able to visualize the posterior tibial vein bilaterally, compressed without evidence of acute thrombus. This was a normal limited bedside ultrasound. Complications: none
== END 2016-08-09 11:42 | disposition short-term general hospital (02) | DRG 303 ==
LOC: ENRESERVTM → ENRESERVDT → EDBD 17:10 → C.EDC 17:12 → C.MSICU 20:09 → C.2E 08-03 10:57
PROVIDERS: ADMIT Internal Medicine; ATTEND Internal Medicine
DX: I25.5 Ischemic cardiomyopathy (principal); I31.3 Pericardial effusion (noninflammatory); F20.0 Paranoid schizophrenia; N17.9 Acute kidney failure, unspecified; E87.1 Hypo-osmolality and hyponatremia; I50.9 Heart failure, unspecified; E83.51 Hypocalcemia; R00.0 Tachycardia, unspecified; I95.89 Other hypotension; T50.8X5A Adverse effect of diagnostic agents, initial encounter; Y92.239 Unspecified place in hospital as the place of occurrence of the external cause; Y84.2 Radiological procedure and radiotherapy as the cause of abnormal reaction of the patient, or of later complication, without mention of misadventure at the time of the procedure